=== PATIENT | male | born 1930 | race Caucasian/White ===

== ENCOUNTER 2019-07-11 22:34 | Inpatient (IN) ==
[2019-07-11 23:33] LABS: Basophils # (auto) 0.01 K/uL (0-0.2); Basophils % (auto) 0.1 %; Eosinophils # (auto) 0.12 K/uL (0-0.5); Hematocrit (blood only) 39.2 % (42-52); Hemoglobin 12.8 g/dL (14.0-18.0); Immature Granulocytes # (auto) 0.03 K/uL (0.00-0.02); Immature Granulocytes % (auto) 0.3 %; Lymphocytes # (auto) 1.83 K/uL (1.2-3.4); Lymphocytes % (auto) 15.9 %; Mean Corpuscular Hemoglobin 31.5 pg (25-34); Mean Corpuscular Hgb Conc 32.7 g/dL (32-36); Mean Corpuscular Volume 96.6 fL (80-100); Mean Platelet Volume 10.4 fL (7.4-10.4); Monocytes # (auto) 1.34 K/uL (0.11-0.59); Monocytes % (auto) 11.6 %; Neutrophils # (auto) 8.18 K/uL (1.4-6.5); Neutrophils % (auto) 71.1 %; Platelet Count 234 K/uL (130-400); RDW Coefficient of Variation 14.2 % (11.5-14.5); RDW Standard Deviation 50.5 fL (36.4-46.3); Red Blood Count 4.06 M/uL (4.7-6.1); White Blood Count 11.51 K/uL (4.8-10.8)
[2019-07-11 23:43] LABS: Albumin Level 3.4 gm/dl (3.4-5.0); BUN Creatinine Ratio 26.3 (10-20); Calcium 9.3 mg/dl (8.5-10.1); Creatinine Clr Calc Pharmacy 42.8 ml/min; Est GFR (African American) 60.4; Est GFR (Non-African American) 52.1; Potassium 4.9 mmol/L (3.5-5.1)
[2019-07-11 23:55] LABS: Albumin Globulin Ratio 0.9 (0.9-2); Bilirubin,Total 0.5 mg/dl (0.2-1); Globulin 3.6 gm/dl (2.5-4.0); Thyroid Stimulating Hormone 1.61 uIu/ml (0.300-4.500); Troponin I 0.059 ng/ml (0-0.045)
[2019-07-12] LABS: Appearance Urine Cloudy (Clear); Bacteria Urine Automated Negative (Negative); Bilirubin Urine Negative (Negative); Blood Urine 2+ (Negative); Color Urine Yellow; Glucose Urine UA Negative (Negative); Ketones Urine Negative (Negative); Leukocyte Esterase Urine Negative (Negative); Nitrite Urine Negative (Negative); Protein Urine 2+ (Negative); Specific Gravity Urine 1.021 (1.000-1.030); Urobilinogen Urine Negative (Negative)
[2019-07-12] MEDS: dilTIAZem HCl 125 MG in DEXTROSE 5% 100 ML IV SCH ×4 (00:07→22:32)
[2019-07-12] MEDS ORDERED: FUROSEMIDE 40 MG/4 ML VIAL IV STA ×2 (01:38→19:24)
[2019-07-12] MEDS ORDERED: IOVERSOL 100ml IV PRN (02:25)
[2019-07-12] MEDS ORDERED: ALBUT/IPRATROP 3MG/0.5MG NEB 3 ML VIAL NEB STA (02:36)
[2019-07-12] MEDS ORDERED: Heparin IV Low Dose *NO* Bolus ONE (03:49)
--- NOTE | 2019-07-12 03:58 | Emergency Department Note ---
Entered by Orlando Olivas acting as a scribe for History of Present Illness General Chief complaint: Abdominal Pain Stated complaint: abd pain Time Seen by Provider: 07/11/19 22:57 Source: patient History of Present Illness Onset (ago): day(s) (1200 today) Location: abdomen Pain Consistency: + constant Quality: + other (abdominal pain) Associated symptoms: + other (Positive for abdominal bloating and not passing gas. Negative for fever.) The patient is an 89 year old male who presents to the emergency department with complaints of constant abdominal pain beginning at 1200 today. The patient states that he was at physical therapy today and felt fine. He notes that he then went to lunch but was unable to eat because it felt like his stomach was expanding. He reports that it feels as though there is a soccer ball in his stomach, and he states that he is having abdominal pain. He notes that he had a medium sized bowel movement at 1600 today, but he reports that he has not been passing much gas today. He denies any fever. The patient states that he has had a quadruple bypass. He notes that he has also had hernia surgery. He reports that he takes a baby aspirin. Home Medications Home Medications Medication Instructions Recorded Confirmed Type acetaminophen [Tylenol] 650 mg PO BID 07/12/19 07/12/19 History acetaminophen [Tylenol] 650 mg PO Q6H PRN 07/12/19 07/12/19 History aluminum-magnesium hydroxide 20 ml PO Q6H PRN 07/12/19 07/12/19 History ascorbic acid (vitamin C) [Vitamin 500 mg PO Q2D 07/12/19 07/12/19 History C] aspirin 81 mg PO DAILY 07/12/19 07/12/19 History cyanocobalamin (vitamin B-12) 1,000 mcg PO 3XWK 07/12/19 07/12/19 History [Vitamin B-12] docusate sodium 100 mg PO DAILY PRN 07/12/19 07/12/19 History ferrous sulfate 325 mg PO Q2D 07/12/19 07/12/19 History finasteride 5 mg PO DAILY 07/12/19 07/12/19 History fluvastatin 80 mg PO HS 07/12/19 07/12/19 History furosemide [Lasix] 80 mg PO DAILY 07/12/19 07/12/19 History ipratropium-albuterol 3 ml INHALATION Q4H 07/12/19 07/12/19 History magnesium oxide 400 mg PO BID 07/12/19 07/12/19 History metformin 500 mg PO BID 07/12/19 07/12/19 History metoprolol succinate 50 mg PO BID 07/12/19 07/12/19 History multivitamin 1 tab PO 4XWK 07/12/19 07/12/19 History omega 5-mhg-izo-fish oil [Fish Oil] 1 cap PO BID 07/12/19 07/12/19 History potassium chloride 20 meq PO TID 07/12/19 07/12/19 History saw palmetto 160 mg PO DAILY 07/12/19 07/12/19 History Allergies Allergy/AdvReac Type Severity Reaction Status Date / Time simvastatin Allergy Unknown Unknown Verified 07/12/19 00:57 Past Med/Surg History Medical History Type II diabetes mellitus (Chronic) Hyperlipidemia (Chronic) BPH (benign prostatic hyperplasia) (Chronic) CAD (coronary artery disease) (Chronic) CHF (congestive heart failure) Urinary retention Surgical History History of hernia surgery History of quadruple bypass Family History Other No significant family history Social History Preferred Language: Nepali Communication Ability: Effective Beliefs That Will Affect Care: None Current Living Situation: Spouse Feels Safe at Home: Yes Smoking Status: Unknown if ever smoked Hx Alcohol Use: No Hx Substance Use: No Review of Systems See HPI for pertinent positives & negatives. and A total of 10 systems reviewed and were otherwise negative Physical Exam Vital Signs Vital Signs - 24 hr 07/11/19 22:46 07/12/19 00:17 07/12/19 00:33 Temperature 98.4 F Temperature Source Oral Sepsis Recent Fever Within 48 Hours No Sepsis Action Taken by Nursing No Action Required Pulse Rate 123 H 123 H Pulse Rate [Right] 140 H Pulse Rate from SpO2 Sensor 115 H Pulse Rhythm Irregular Pulse Rhythm [Right] Irregular Pulse Strength Normal Pulse Strength [Right] Normal Respiratory Rate 20 20 30 H Respiratory Effort / Characteristics Non-Labored Spontaneous Non-Labored Spontaneous Respiratory Depth Normal Normal Respiratory Pattern Blood Pressure 127/94 147/111 H Blood Pressure [Right Arm] 161/113 H Blood Pressure Mean 105 123 Blood Pressure Mean [Right Arm] 129 Blood Pressure Position Lying Pulse Oximetry 92 95 94 Oxygen Delivery Method Nasal Cannula Nasal Cannula Oxygen Flow Rate 2 Fraction of Inspired Oxygen SaO2/FiO2 Ratio 07/12/19 00:40 07/12/19 00:48 07/12/19 00:50 Temperature Temperature Source Sepsis Recent Fever Within 48 Hours Sepsis Action Taken by Nursing Pulse Rate 120 H 120 H Pulse Rate [Right] 118 H Pulse Rate from SpO2 Sensor 122 H 116 H Pulse Rhythm Pulse Rhythm [Right] Irregular Pulse Strength Pulse Strength [Right] Normal Respiratory Rate 27 H 20 35 H Respiratory Effort / Characteristics Non-Labored Spontaneous Respiratory Depth Normal Respiratory Pattern Blood Pressure Blood Pressure [Right Arm] 147/111 H Blood Pressure Mean Blood Pressure Mean [Right Arm] 123 Blood Pressure Position Pulse Oximetry 94 92 91 Oxygen Delivery Method Nasal Cannula Oxygen Flow Rate 4 Fraction of Inspired Oxygen SaO2/FiO2 Ratio 07/12/19 01:00 07/12/19 01:08 07/12/19 01:20 Temperature Temperature Source Sepsis Recent Fever Within 48 Hours Sepsis Action Taken by Nursing Pulse Rate 125 H 118 H 107 H Pulse Rate [Right] Pulse Rate from SpO2 Sensor 100 H 124 H 119 H Pulse Rhythm Pulse Rhythm [Right] Pulse Strength Pulse Strength [Right] Respiratory Rate 26 H 27 H 19 Respiratory Effort / Characteristics Respiratory Depth Respiratory Pattern Blood Pressure 160/81 H Blood Pressure [Right Arm] Blood Pressure Mean 107 Blood Pressure Mean [Right Arm] Blood Pressure Position Pulse Oximetry 91 86 L 91 Oxygen Delivery Method Oxygen Flow Rate 6 Fraction of Inspired Oxygen SaO2/FiO2 Ratio 07/12/19 01:22 07/12/19 01:48 07/12/19 01:49 Temperature Temperature Source Sepsis Recent Fever Within 48 Hours Sepsis Action Taken by Nursing Pulse Rate 108 H Pulse Rate [Right] 110 H Pulse Rate from SpO2 Sensor 113 H Pulse Rhythm Pulse Rhythm [Right] Pulse Strength Pulse Strength [Right] Normal Respiratory Rate 20 40 H Respiratory Effort / Characteristics Non-Labored Spontaneous Respiratory Depth Normal Respiratory Pattern Blood Pressure 143/99 H 166/112 H Blood Pressure [Right Arm] 166/112 H Blood Pressure Mean 113 130 Blood Pressure Mean [Right Arm] 130 Blood Pressure Position Pulse Oximetry 92 90 Oxygen Delivery Method Nasal Cannula Oxygen Flow Rate 6 6 Fraction of Inspired Oxygen SaO2/FiO2 Ratio 07/12/19 02:34 07/12/19 02:41 07/12/19 02:49 Temperature Temperature Source Sepsis Recent Fever Within 48 Hours Sepsis Action Taken by Nursing Pulse Rate 118 H 110 H Pulse Rate [Right] Pulse Rate from SpO2 Sensor 115 H 132 H Pulse Rhythm Pulse Rhythm [Right] Pulse Strength Pulse Strength [Right] Respiratory Rate 27 H 36 H Respiratory Effort / Characteristics Spontaneous Respiratory Depth Normal Respiratory Pattern Regular Blood Pressure 157/104 H 152/109 H Blood Pressure [Right Arm] Blood Pressure Mean 121 123 Blood Pressure Mean [Right Arm] Blood Pressure Position Pulse Oximetry 85 L 91 94 Oxygen Delivery Method Nasal Cannula Non-rebreather Oxygen Flow Rate 7 15 Fraction of Inspired Oxygen 60 SaO2/FiO2 Ratio 07/12/19 02:50 07/12/19 03:02 07/12/19 04:12 Temperature Temperature Source Sepsis Recent Fever Within 48 Hours Sepsis Action Taken by Nursing Pulse Rate Pulse Rate [Right] 113 H 114 H 108 H Pulse Rate from SpO2 Sensor Pulse Rhythm Pulse Rhythm [Right] Pulse Strength Pulse Strength [Right] Respiratory Rate 36 H 24 16 Respiratory Effort / Characteristics Spontaneous Labored Short of Breath Non-Labored Spontaneous Non-Labored Spontaneous Respiratory Depth Normal Normal Respiratory Pattern Blood Pressure Blood Pressure [Right Arm] 151/99 H 115/78 Blood Pressure Mean Blood Pressure Mean [Right Arm] 116 90 Blood Pressure Position Pulse Oximetry 94 93 92 Oxygen Delivery Method BiPAP BiPAP BiPAP Oxygen Flow Rate Fraction of Inspired Oxygen 60 40 SaO2/FiO2 Ratio 230 GENERAL: alert, well appearing, well nourished, no distress, non-toxic EYE EXAM: normal conjunctiva, PERRL and EOM's grossly intact OROPHARYNX: no exudate, no erythema, lips, buccal mucosa, and tongue normal and mucous membranes are moist NECK: supple, no nuchal rigidity, no adenopathy, non-tender LUNGS: Clear to auscultation. Normal chest wall mechanics. Decreased breath sounds, no wheezes, rhonchi, and rales. HEART: no murmurs, S1 normal and S2 normal ABDOMEN: abdomen soft, no masses, no rebound or guarding. Abdominal distention noted, generalized abdominal discomfort with palpation, tympanic to percussion, decreased bowel sounds. BACK: Back is symmetrical on inspection and there is no deformity, no midline tenderness, no CVA tenderness. SKIN: no rashes and no bruising UPPER EXTREMITIES: upper extremities are grossly normal. FROM, nml pulses b/l. LOWER EXTREMITIES: 2+ lower extremity edema, normal distal pulses bilaterally. FROM, nml pulses b/l. NEURO EXAM: Normal sensorium, cranial nerves II-XII grossly intact, normal speech, no gross weakness of arms, no gross weakness of legs. Course 2303: The patient was evaluated in room C5. A complete history and physical exam was performed. 0056: Additional records were obtained from [facility] at this time. 0242: I rechecked the patient. He was diaphoretic and cyanotic. His oxygen saturation was in the low 80s and he was in respiratory distress. He had an increased work of breathing. A call was placed for BiPAP. The patient was moved from nasal cannula at 5L/min to a face mask at 15L/min until BiPAP can be applied. 0255: I reevaluated the patient. He is slightly more comfortable with BiPAP in place. His oxygen saturation was 94%. 0312: I rechecked the patient. He looks and feels better. His heart rate is 99. 0333: The investment accounting clerk is trying to contact [employer] due to the delay in results of CT. 0400: Pt updated on results. States he feels much improved. VS stable on bipap. 0414: Upon reevaluation, the patient is stable. I discussed the findings and the treatment plan with the patient. He expresses agreement and understanding. I spoke with Dr. Juarez of the [facility] Hospitalist Service. The patient will be evaluated for further management. Consultations Consultation #1: I reviewed the patient's case with Dr. Juarez - Hospitalist, [facility]. He will evaluate the patient for further management. Time: 04:14 Administered Medications Acetaminophen (Tylenol) 650 mg PO Q4H PRN PRN Reason: mild pain or fever Stop: 08/11/19 05:45 Last Admin: 07/12/19 08:58 Dose: 650 mg Documented by: [id number] Albuterol (Duoneb) 3 ml NEB Q6R JOVANNY Stop: 08/11/19 06:59 Last Admin: 07/13/19 01:05 Dose: 3 ml Documented by: [id number] Admin: 07/12/19 18:58 Dose: 3 ml Documented by: [id number] Admin: 07/12/19 13:13 Dose: 3 ml Documented by: [id number] Admin: 07/12/19 07:46 Dose: 3 ml Documented by: [id number] Aspirin (Ecotrin Ectab) 81 mg PO DAILY [facility] Stop: 08/11/19 08:59 Last Admin: 07/12/19 08:52 Dose: 81 mg Documented by: [id number] Finasteride (Proscar) 5 mg PO DAILY [facility] Stop: 08/11/19 08:59 Last Admin: 07/12/19 08:52 Dose: 5 mg Documented by: [id number] Fluvastatin Sodium (Lescol) 80 mg PO HS [facility] Stop: 08/11/19 20:59 Last Admin: 07/12/19 21:06 Dose: Not Given Documented by: [id number] Diltiazem HCl 125 mg/ Dextrose 125 mls @ 15 mls/hr IV .Q8H20M [facility]; Protocol Stop: 08/10/19 23:44 Last Admin: 07/12/19 22:32 Dose: 15 mg/hr, 15 mls/hr Documented by: [id number] Cosigned by: [id number] Titration: 07/12/19 22:32 Dose: 0 mg/hr, 0 mls/hr Documented by: [id number] Cosigned by: [id number] Titration: 07/12/19 19:26 Dose: 15 mg/hr, 15 mls/hr Documented by: [id number] Cosigned by: [id number] Admin: 07/12/19 16:31 Dose: 15 mg/hr, 15 mls/hr Documented by: [id number] Cosigned by: [id number] Titration: 07/12/19 16:31 Dose: 15 mg/hr, 15 mls/hr Documented by: [id number] Cosigned by: [id number] Admin: 07/12/19 08:58 Dose: 15 mg/hr, 15 mls/hr Documented by: [id number] Cosigned by: [id number] Titration: 07/12/19 08:58 Dose: 15 mg/hr, 15 mls/hr Documented by: [id number] Cosigned by: [id number] Titration: 07/12/19 01:10 Dose: 15 mg/hr, 15 mls/hr Documented by: [id number] Titration: 07/12/19 00:42 Dose: 10 mg/hr, 10 mls/hr Documented by: [id number] Admin: 07/12/19 00:07 Dose: 5 mg/hr, 5 mls/hr Documented by: [id number] Cosigned by: [id number] Heparin Sodium/Dextrose (Heparin Sodium/Dextrose) 25,000 units in 500 mls @ 18 mls/hr IV .Q24H JOVANNY; Protocol Stop: 08/11/19 03:59 Last Titration: 07/12/19 19:26 Dose: 900 units/hr, 18 mls/hr Documented by: [id number] Cosigned by: [id number] Titration: 07/12/19 11:43 Dose: 900 units/hr, 18 mls/hr Documented by: [id number] Cosigned by: [id number] Titration: 07/12/19 07:36 Dose: 850 units/hr, 17 mls/hr Documented by: [id number] Cosigned by: [id number] Admin: 07/12/19 04:09 Dose: 850 units/hr, 17 mls/hr Documented by: [id number] Cosigned by: [id number] Ceftriaxone Sodium 2,000 mg/ (Dextrose) 70 mls @ 100 mls/hr IV Q24H JOVANNY; Protocol Stop: 07/22/19 14:59 Last Infusion: 07/12/19 16:51 Dose: 0 mls/hr Documented by: [id number] Admin: 07/12/19 16:09 Dose: 100 mls/hr Documented by: [id number] Furosemide 80 mg/ Syringe 8 mls @ 4 mls/min IV BID JOVANNY Stop: 08/11/19 14:29 Last Admin: 07/12/19 19:50 Dose: Not Given Documented by: [id number] Admin: 07/12/19 16:09 Dose: 4 mls/min Documented by: [id number] Insulin Aspart (Novolog Flexpen) 0 units SC ACHS JOVANNY; Protocol Stop: 08/11/19 07:29 Last Admin: 07/12/19 21:07 Dose: Not Given Documented by: [id number] Cosigned by: [id number] Admin: 07/12/19 19:00 Dose: Not Given Documented by: [id number] Cosigned by: [id number] Admin: 07/12/19 13:19 Dose: Not Given Documented by: [id number] Cosigned by: [id number] Admin: 07/12/19 09:07 Dose: 1 units Documented by: [id number] Cosigned by: [id number] Ioversol (Optiray 320 100ml) 100 ml IV ONCE PRN PRN Reason: Interaction Checking Stop: 07/16/19 02:24 Last Admin: 07/12/19 02:25 Dose: 93 ml Documented by: [id number] Magnesium Oxide (Mag-Ox) 400 mg PO BID JOVANNY Stop: 08/11/19 08:59 Last Admin: 07/12/19 21:07 Dose: Not Given Documented by: [id number] Admin: 07/12/19 08:52 Dose: 400 mg Documented by: [id number] Metoprolol Tartrate (Lopressor) 50 mg PO Q6 JOVANNY Stop: 08/11/19 14:29 Last Admin: 07/13/19 00:15 Dose: Not Given Documented by: [id number] Admin: 07/12/19 19:51 Dose: Not Given Documented by: [id number] Admin: 07/12/19 16:31 Dose: 50 mg Documented by: [id number] Morphine Sulfate (Morphine Sulfate) 2 mg IV Q4H PRN PRN Reason: Pain Stop: 07/26/19 15:45 Last Admin: 07/13/19 00:10 Dose: 2 mg Documented by: [id number] Admin: 07/12/19 16:09 Dose: 2 mg Documented by: [id number] Potassium Chloride (Klor-Con M20) 20 meq PO TID JOVANNY Stop: 08/11/19 08:59 Last Admin: 07/12/19 21:06 Dose: Not Given Documented by: [id number] Admin: 07/12/19 16:10 Dose: 20 meq Documented by: [id number] Admin: 07/12/19 08:51 Dose: 20 meq Documented by: [id number] Tamsulosin HCl (Flomax) 0.4 mg PO HS JOVANNY Stop: 08/11/19 20:59 Last Admin: 07/12/19 21:06 Dose: Not Given Documented by: [id number] Discontinued Medications Albuterol (Duoneb) 3 ml NEB NOW STA Stop: 07/12/19 02:37 Last Admin: 07/12/19 02:47 Dose: 3 ml Documented by: [id number] Albuterol (Duoneb) 3 ml NEB Q6H JOVANNY Stop: 08/11/19 04:44 Last Admin: 07/12/19 06:04 Dose: Not Given Documented by: [id number] Furosemide (Lasix) 40 mg IV NOW STA Stop: 07/12/19 01:39 Last Admin: 07/12/19 02:41 Dose: 40 mg Documented by: [id number] Furosemide (Lasix) 80 mg PO DAILY JOVANNY Stop: 08/11/19 08:59 Last Admin: 07/12/19 08:51 Dose: 80 mg Documented by: [id number] Furosemide (Lasix) 40 mg IV NOW STA Stop: 07/12/19 19:25 Last Admin: 07/12/19 19:32 Dose: 40 mg Documented by: [id number] Furosemide (Lasix) Confirm Administered Dose 40 mg IV .STK-MED ONE Stop: 07/12/19 19:29 Last Admin: 07/12/19 19:51 Dose: 40 mg Documented by: [id number] Heparin Sodium/Dextrose () 1 ea N/A ONE ONE; Protocol Stop: 07/12/19 03:50 Last Admin: 07/12/19 04:10 Dose: 1 ea Documented by: [id number] Heparin Sodium (Porcine) 3,000 (units/ Syringe) 3 mls @ 10 mls/min IV ONE ONE Stop: 07/12/19 12:01 Last Admin: 07/12/19 13:18 Dose: 10 mls/min Documented by: [id number] Cosigned by: [id number] Metoprolol Succinate (Toprol Xl) 50 mg PO BID JOVANNY Stop: 08/11/19 08:59 Last Admin: 07/12/19 08:52 Dose: 50 mg Documented by: [id number] Medical Decision Making Differential Diagnosis Differential diagnosis: Etiologies such as biliary colic, cholecystitis, hepatitis, pancreatitis, cardiac disease, pancreatitis, gastritis, peptic ulcer disease, appendicitis, cystitis, diverticulitis, mesenteric ischemia, inflammatory bowel disease, ileus, bowel obstruction, testicular torsion, aortic pathology, shingles, as well as others were considered. Medical Records Attestation: I reviewed the patient's medical records. Home Medications Current Medication List: was personally reviewed by me Laboratory Data Attestation: I reviewed the patient's lab results. Result diagrams: 07/11/19 22:25 07/12/19 09:59 Lab Results 07/11/19 07/11/19 07/11/19 Range/Units 22:25 22:25 23:41 WBC 11.51 H (4.8-10.8) K/uL RBC 4.06 L (4.7-6.1) M/uL Hgb 12.8 L (14.0-18.0) g/dL Hct 39.2 L (42-52) % MCV 96.6 (80-100) fL MCH 31.5 (25-34) pg MCHC 32.7 (32-36) g/dL RDW Std Deviation 50.5 H (36.4-46.3) fL RDW Coeff of Ashley 14.2 (11.5-14.5) % Plt Count 234 (130-400) K/uL MPV 10.4 (7.4-10.4) fL Immature Gran % (Auto) 0.3 % Neut % (Auto) 71.1 % Lymph % (Auto) 15.9 % Meagher % (Auto) 11.6 % Eos % (Auto) 1.0 % Baso % (Auto) 0.1 % Immature Gran # (Auto) 0.03 H (0.00-0.02) K/uL Neut # (Auto) 8.18 H (1.4-6.5) K/uL Lymph # (Auto) 1.83 (1.2-3.4) K/uL Meagher # (Auto) 1.34 H (0.11-0.59) K/uL Eos # (Auto) 0.12 (0-0.5) K/uL Baso # (Auto) 0.01 (0-0.2) K/uL Sodium 138 (136-145) mmol/L Potassium 4.9 D (3.5-5.1) mmol/L Chloride 98 (98-107) mmol/L Carbon Dioxide 32 (21-32) mmol/L Anion Gap 8.0 (3-11) BUN 32 H (7-18) mg/dl Creatinine 1.23 (0.6-1.4) mg/dl Est Cr Clr Drug Dosing 42.8 ml/min Est GFR ( Amer) 60.4 Est GFR (Non-Af Amer) 52.1 BUN/Creatinine Ratio 26.3 H (10-20) Glucose 144 H (70-99) mg/dl POC Lactic Acid Fazal (0.90-1.70) mmol/L Calcium 9.3 (8.5-10.1) mg/dl Magnesium 2.0 (1.8-2.4) mg/dl Total Bilirubin 0.5 (0.2-1) mg/dl AST 30 (15-37) U/L ALT 43 (12-78) U/L Alkaline Phosphatase 62 (45-117) U/L Troponin I 0.059 H* (0-0.045) ng/ml NT-Pro-B Natriuret Pep 8566 H (0-1800) pg/ml Total Protein 7.0 (6.4-8.2) gm/dl Albumin 3.4 (3.4-5.0) gm/dl Globulin 3.6 (2.5-4.0) gm/dl Albumin/Globulin Ratio 0.9 (0.9-2) Lipase 91 (73-393) U/L TSH 1.610 (0.300-4.500) uIu/ml Urine Color Yellow Urine Appearance Cloudy A (Clear) Urine pH 5.0 (4.5-7.5) Ur Specific Mineral 1.021 (1.000-1.030) Urine Protein 2+ H (Negative) Urine Glucose (UA) Negative (Negative) Urine Ketones Negative (Negative) Urine Blood 2+ H (Negative) Urine Nitrite Negative (Negative) Urine Bilirubin Negative (Negative) Urine Urobilinogen Negative (Negative) Ur Leukocyte Esterase Negative (Negative) Urine WBC (Auto) 1-5 (0-5) /hpf Urine RBC (Auto) 10-30 H (0-4) /hpf U Hyaline Cast (Auto) 5-10 H (0-5) /lpf U Epithel Cells (Auto) 5-10 H (0-5) /lpf Urine Bacteria (Auto) Negative (Negative) 07/11/19 Range/Units 23:55 WBC (4.8-10.8) K/uL RBC (4.7-6.1) M/uL Hgb (14.0-18.0) g/dL Hct (42-52) % MCV (80-100) fL MCH (25-34) pg MCHC (32-36) g/dL RDW Std Deviation (36.4-46.3) fL RDW Coeff of Ashley (11.5-14.5) % Plt Count (130-400) K/uL MPV (7.4-10.4) fL Immature Gran % (Auto) % Neut % (Auto) % Lymph % (Auto) % Meagher % (Auto) % Eos % (Auto) % Baso % (Auto) % Immature Gran # (Auto) (0.00-0.02) K/uL Neut # (Auto) (1.4-6.5) K/uL Lymph # (Auto) (1.2-3.4) K/uL Meagher # (Auto) (0.11-0.59) K/uL Eos # (Auto) (0-0.5) K/uL Baso # (Auto) (0-0.2) K/uL Sodium (136-145) mmol/L Potassium (3.5-5.1) mmol/L Chloride (98-107) mmol/L Carbon Dioxide (21-32) mmol/L Anion Gap (3-11) BUN (7-18) mg/dl Creatinine (0.6-1.4) mg/dl Est Cr Clr Drug Dosing ml/min Est GFR ( Amer) Est GFR (Non-Af Amer) BUN/Creatinine Ratio (10-20) Glucose (70-99) mg/dl POC Lactic Acid Fazal 1.12 (0.90-1.70) mmol/L Calcium (8.5-10.1) mg/dl Magnesium (1.8-2.4) mg/dl Total Bilirubin (0.2-1) mg/dl AST (15-37) U/L ALT (12-78) U/L Alkaline Phosphatase (45-117) U/L Troponin I (0-0.045) ng/ml NT-Pro-B Natriuret Pep (0-1800) pg/ml Total Protein (6.4-8.2) gm/dl Albumin (3.4-5.0) gm/dl Globulin (2.5-4.0) gm/dl Albumin/Globulin Ratio (0.9-2) Lipase (73-393) U/L TSH (0.300-4.500) uIu/ml Urine Color Urine Appearance (Clear) Urine pH (4.5-7.5) Ur Specific Mineral (1.000-1.030) Urine Protein (Negative) Urine Glucose (UA) (Negative) Urine Ketones (Negative) Urine Blood (Negative) Urine Nitrite (Negative) Urine Bilirubin (Negative) Urine Urobilinogen (Negative) Ur Leukocyte Esterase (Negative) Urine WBC (Auto) (0-5) /hpf Urine RBC (Auto) (0-4) /hpf U Hyaline Cast (Auto) (0-5) /lpf U Epithel Cells (Auto) (0-5) /lpf Urine Bacteria (Auto) (Negative) Imaging Data Attestation: I personally reviewed and interpreted this imaging study as follows: My Impression: SINGLE VIEW CHEST X-RAY: Cardiomegaly. Sternotomy wires noted. Elevated left hemidiaphragm. No large pleural effusion. Increased interstitial markings bilaterally. No focal consolidation. Radiologist's Impression: Radiology results as stated below per my review and the radiologist's interpretation: CT ABDOMEN & PELVIS With Contrast: Evaluation of urinary bladder limited by underdistention, but there is bladder wall thickening and adjacent fat stranding, suggesting possible cystitis. Recommend correlation with urinalysis. Prostate is minimally enlarged. Bladder wall thickening is somewhat eccentric and greater at towards right. Correlation with urine cytology/cystoscopy should be considered to exclude underlying neoplasm. Cardiomegaly. Coronary artery calcifications. Pelvis CABG. Interlobular septal thickening and mild patchy groundglass densities in right lung, suggesting CHF/fluid overload. Small left pleural effusion. Elevation of left hemidiaphragm and there is atelectasis at left lung base and lingual. Mild atelectasis at right lung base. Mild airspace disease not excluded. 3mm enhancing lesion at liver edge (image 45, series 2), incompletely characterized. Large parapelvic cyst in left kidney. No hydronephrosis. Nonspecific perinephric stranding bilaterally. Normal appendix. No free air or free fluid. No bowel obstruction. 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 Multilevel degenerative changes. Atherosclerotic calcifications. Radiologist: Surendra Kimble MD. ECG Data Attestation: I personally reviewed and interpreted this ECG as follows: Indication: abdominal pain Rate (beats per minute): 146 Rhythm: atrial fibrillation Findings: + PVC and + Q waves (in 2, 3, and AVF) Additional Comments: Left axis, normal QRS and QTC, no new ST elevation. Blood Pressure Blood Pressure Findings: Elevated blood pressure Blood Pressure Disposition: further management by hospitalist [facility] Narrative This is a comp gated medical patient with initially no additional outside records or information regarding his past medical history or medications who presented with complaints of generalized abdominal discomfort that began earlier today. Eventually records were obtained that did reveal patient's prior history and current medications. Labs were drawn and sent, and eventually EKG revealed appearance of pulmonary edema. Patient appeared to be in atrial fibrillation on telemetry with a rapid response. While patient denied any shortness of breath on bedside questioning, he did appear slightly tachypneic, and was placed on oxygen by nursing staff as a precaution. Patient remained stable and had no changes in his condition while awaiting CT. After patient returned from CT patient was profoundly diaphoretic, cyanotic, struggling to breathe, hypoxic in the low 80s, and respiratory was called emergently to start the patient on BiPAP. Patient improved while on BiPAP and had decreased work of breathing and oxygen saturations return to the low to mid 90s. Patient CT is read by the stat overnight radiologist, did not reveal any other acute pathology. Patient was noted on labs to have an elevated BNP which was consistent with his chest x-ray, as well as an elevated troponin. Patient was also noted when he was first placed on telemetry to have atrial fibrillation. We could not find any prior record of this. Patient had been started on a diltiazem drip while awaiting other records which did provide additional control. Once CT results were known, a heparin drip was added as a precaution. All results were explained to the patient as well as his need for additional inpatient evaluation and monitoring. He verbalized understanding and was in agreement. Patient otherwise remained hemodynamically stable, well-appearing while on BiPAP in the emergency room until he was moved upstairs. Case was discussed with hospitalist for additional evaluation and management. Impression & Plan Abdominal pain, Acute respiratory distress, Hypoxia, Pulmonary edema, Elevated troponin, Atrial fibrillation Critical Care Time Critical Care Time: Yes Total Critical Care Time: 50 I have personally spent 50 minutes of critical care time in the direct management of this patient. This includes bedside care, interpretation of diagnostic studies, and testing, discussion with consultants, patient, and family members, and other required patient management activities. This 50 minutes is in excess of all separately billable procedures. Discharge Plan Visit Data *Final* Discharge Date/Time: 07/12/19 05:24 Chief Complaint: Abdominal Pain Stated Complaint: abd pain ED Provider: Kat Askew Discharge Problem: Abdominal pain, Acute respiratory distress, Hypoxia, Pulmonary edema, Elevated troponin, Atrial fibrillation Patient Disposition: Admitted As Inpatient Discharge Instructions Interventions: ED Discharge Assessment Last Done: 07/12/19 05:24 Discharge Problem: Abdominal pain Qualifiers: Abdominal location: generalized Qualified Code(s): R10.84 - Generalized abdominal pain Pulmonary edema Qualifiers: Chronicity: acute Qualified Code(s): J81.0 - Acute pulmonary edema Atrial fibrillation Qualifiers: Atrial fibrillation type: unspecified Qualified Code(s): I48.91 - Unspecified atrial fibrillation The scribe's documentation has been prepared under my direction and personally reviewed by me in its entirety. I confirm that the note above accurately reflects all work, treatment, procedures, and medical decision making performed by me.
[2019-07-12] MEDS: HEPARIN SODIUM/DEXTROSE 25,000 UNITS/500 ML BAG IV SCH (04:09)
[2019-07-12] MEDS ORDERED: ALBUT/IPRATROP 3MG/0.5MG NEB 3 ML VIAL NEB SCH (04:45)
--- NOTE | 2019-07-12 05:07 | History & Physical Report ---
Date of Service July 12, 2019 Assessment & Plan (1) Atrial fibrillation with RVR: Admit to PCU Presumed to be new A.fib Heparin gtt started in ED Cardizem gtt check echocardiogram (2) Pulmonary edema: [place] to be secondary to elevated HR IV Lasix given in ED. (3) Acute respiratory failure with hypoxia: Patient doing better on BiPAP IV Lasix given continue Lasix 80mg po daily in am Duonebs (4) Elevated troponin: Suspect due to demand ischemia will trend trops. (5) Type II diabetes mellitus: ADA diet Hold Metformin Sliding scale coverage for now. (6) Hyperlipidemia: Continue Fluvastatin (7) CAD (coronary artery disease): continue Metoprolol and aspirin History of Present Illness 89 y/o male presented to the ED from [facility] with a 12 hour history of constant diffuse abdominal pain. He described as having a "soccer ball in my stomach". He did have a normal BM last evening. No vomiting or diarrhea, No F/C, No cough, No chest pain. The patient is a poor historian in regards to past medical history. He is found to be in A.fib with RVR. Primary Care Provider: [facility] Allergies Allergy/AdvReac Type Severity Reaction Status Date / Time simvastatin Allergy Unknown Unknown Verified 07/12/19 00:57 Home Medications Home Medications Medication Instructions Recorded Confirmed Type acetaminophen [Tylenol] 650 mg PO BID 07/12/19 07/12/19 History acetaminophen [Tylenol] 650 mg PO Q6H PRN 07/12/19 07/12/19 History aluminum-magnesium hydroxide 20 ml PO Q6H PRN 07/12/19 07/12/19 History ascorbic acid (vitamin C) [Vitamin 500 mg PO Q2D 07/12/19 07/12/19 History C] aspirin 81 mg PO DAILY 07/12/19 07/12/19 History cyanocobalamin (vitamin B-12) 1,000 mcg PO 3XWK 07/12/19 07/12/19 History [Vitamin B-12] docusate sodium 100 mg PO DAILY PRN 07/12/19 07/12/19 History ferrous sulfate 325 mg PO Q2D 07/12/19 07/12/19 History finasteride 5 mg PO DAILY 07/12/19 07/12/19 History fluvastatin 80 mg PO HS 07/12/19 07/12/19 History furosemide [Lasix] 80 mg PO DAILY 07/12/19 07/12/19 History ipratropium-albuterol 3 ml INHALATION Q4H 07/12/19 07/12/19 History magnesium oxide 400 mg PO BID 07/12/19 07/12/19 History metformin 500 mg PO BID 07/12/19 07/12/19 History multivitamin 1 tab PO 4XWK 07/12/19 07/12/19 History omega 8-gut-dbx-fish oil [Fish Oil] 1 cap PO BID 07/12/19 07/12/19 History potassium chloride 20 meq PO TID 07/12/19 07/12/19 History saw palmetto 160 mg PO DAILY 07/12/19 07/12/19 History CPAP Machine #1 ea 07/18/19 Rx CPAP Supplies #1 ea 07/18/19 Rx digoxin 0.125 mg PO DAILY@1600 30 Days #30 07/18/19 Rx tab diltiazem HCl 120 mg PO DAILY 30 Days #30 cap 07/18/19 Rx metoprolol succinate 150 mg PO BID 30 Days #180 tab 07/18/19 Rx rivaroxaban [Xarelto] 20 mg PO DAILY@1700 30 Days #30 tab 07/18/19 Rx tamsulosin 0.4 mg PO HS 30 Days #30 cap 07/18/19 Rx bumetanide 2 mg PO DAILY #30 tab 07/24/19 Rx Past Med/Surg History Medical History Type II diabetes mellitus (Chronic) Hyperlipidemia (Chronic) BPH (benign prostatic hyperplasia) (Chronic) CAD (coronary artery disease) (Chronic) CHF (congestive heart failure) Urinary retention Surgical History History of hernia surgery History of quadruple bypass Family History Other No significant family history Social History Preferred Language: [place] Communication Ability: Effective Beliefs That Will Affect Care: None Current Living Situation: Spouse Feels Safe at Home: Yes Smoking Status: Unknown if ever smoked Hx Alcohol Use: No Hx Substance Use: No Review of Systems Review of Systems: Constitutional- no fever; no weight loss Eyes- no acute visual changes ENT- no sinus drainage; no pharyngitis Pulmonary- no cough, no wheezing, no shortness of breath Cardiac- no chest pain, no palpitations, no orthopnea. GI- As in HPI - no dysuria, no hematuria Musculoskeletal- no arthralgias, no myalgias Derm- no rashes, no new skin lesions, no changing skin lesions Hematologic- no unusual bruising, no unusual bleeding Lymphatics- no adenopathy Endocrine- no polyuria or polydipsia; no heat or cold intolerance Neuro- no headaches, no focal neurologic symptoms Psych- no anxiety, no depression Physical Exam Physical Exam: General- adult male wearing BIPAP, NAD Head- atraumatic Eyes- PERRL, EOMI, anicteric ENT- oropharynx clear Neck- supple, no JVD, no adenopathy, no thyromegaly. Lungs- Crackles at the bases b/. Heart- Irregular rhythm; no murmur, no gallop, no rub appreciated Abdomen- normal bowel sounds, soft, nontender. Extremities- no calf tenderness; peripheral pulses intact. + 2 pitting edema b/l ankles Neuro- alert, oriented x 3; PERRL, EOMI; economic analysis director II-XII grossly intact, non-focal. Skin- warm & dry Results & Data Vital Signs (Past 12 Hours) Vital Signs Temp Pulse Pulse Resp BP BP Pulse Ox 07/12/19 04:12 108 H 16 115/78 92 07/12/19 03:02 114 H 24 151/99 H 93 07/12/19 02:50 113 H 36 H 94 07/12/19 02:49 110 H 36 H 94 07/12/19 02:41 152/109 H 91 07/12/19 02:34 118 H 27 H 157/104 H 85 L 07/12/19 01:49 108 H 40 H 166/112 H 90 07/12/19 01:48 110 H 20 166/112 H 92 07/12/19 01:22 143/99 H 07/12/19 01:20 107 H 19 91 07/12/19 01:08 118 H 27 H 160/81 H 86 L 07/12/19 01:00 125 H 26 H 91 10/10/19 00:50 120 H 35 H 91 07/12/19 00:48 118 H 20 147/111 H 92 07/12/19 00:40 120 H 27 H 94 07/12/19 00:33 123 H 30 H 147/111 H 94 07/12/19 00:17 140 H 20 161/113 H 95 07/11/19 22:46 36.9 C 123 H 20 127/94 92 Laboratory Results Laboratory Results WBC 11.51 K/uL (4.8-10.8) H 07/11/19 22:25 RBC 4.06 M/uL (4.7-6.1) L 07/11/19 22:25 Hgb 12.8 g/dL (14.0-18.0) L 07/11/19 22:25 Hct 39.2 % (42-52) L 07/11/19 22:25 MCV 96.6 fL (80-100) 07/11/19 22:25 MCH 31.5 pg (25-34) 07/11/19 22:25 MCHC 32.7 g/dL (32-36) 07/11/19 22:25 RDW Std Deviation 50.5 fL (36.4-46.3) H 07/11/19 22:25 RDW Coeff of Ashley 14.2 % (11.5-14.5) 07/11/19 22:25 Plt Count 234 K/uL (130-400) 07/11/19 22:25 MPV 10.4 fL (7.4-10.4) 07/11/19 22:25 Immature Gran % (Auto) 0.3 % 07/11/19 22:25 Neut % (Auto) 71.1 % 07/11/19 22:25 Lymph % (Auto) 15.9 % 07/11/19 22:25 Carter % (Auto) 11.6 % 07/11/19 22:25 Eos % (Auto) 1.0 % 07/11/19 22:25 Baso % (Auto) 0.1 % 07/11/19 22:25 Immature Gran # (Auto) 0.03 K/uL (0.00-0.02) H 07/11/19 22:25 Neut # (Auto) 8.18 K/uL (1.4-6.5) H 07/11/19 22:25 Lymph # (Auto) 1.83 K/uL (1.2-3.4) 07/11/19 22:25 Carter # (Auto) 1.34 K/uL (0.11-0.59) H 07/11/19 22:25 Eos # (Auto) 0.12 K/uL (0-0.5) 07/11/19 22:25 Baso # (Auto) 0.01 K/uL (0-0.2) 07/11/19 22:25 Sodium 138 mmol/L (136-145) 07/11/19 22:25 Potassium 4.9 mmol/L (3.5-5.1) D 07/11/19 22:25 Chloride 98 mmol/L (98-107) 07/11/19 22:25 Carbon Dioxide 32 mmol/L (21-32) 07/11/19 22:25 Anion Gap 8.0 (3-11) 07/11/19 22:25 BUN 32 mg/dl (7-18) H 07/11/19 22:25 Creatinine 1.23 mg/dl (0.6-1.4) 07/11/19 22:25 Est Cr Clr Drug Dosing 42.8 ml/min 07/11/19 22:25 Est GFR ( Amer) 60.4 07/11/19 22:25 Est GFR (Non-Af Amer) 52.1 07/11/19 22:25 BUN/Creatinine Ratio 26.3 (10-20) H 07/11/19 22:25 Glucose 144 mg/dl (70-99) H 07/11/19 22:25 POC Lactic Acid Fazal 1.12 mmol/L (0.90-1.70) 07/11/19 23:55 Calcium 9.3 mg/dl (8.5-10.1) 07/11/19 22:25 Magnesium 2.0 mg/dl (1.8-2.4) 07/11/19 22:25 Total Bilirubin 0.5 mg/dl (0.2-1) 07/11/19 22:25 AST 30 U/L (15-37) 07/11/19 22:25 ALT 43 U/L (12-78) 07/11/19 22:25 Alkaline Phosphatase 62 U/L (45-117) 07/11/19 22:25 Troponin I 0.059 ng/ml (0-0.045) H* 07/11/19 22:25 NT-Pro-B Natriuret Pep 8566 pg/ml (0-1800) H 07/11/19 22:25 Total Protein 7.0 gm/dl (6.4-8.2) 07/11/19 22:25 Albumin 3.4 gm/dl (3.4-5.0) 07/11/19 22:25 Globulin 3.6 gm/dl (2.5-4.0) 07/11/19 22:25 Albumin/Globulin Ratio 0.9 (0.9-2) 07/11/19 22:25 Lipase 91 U/L (73-393) 07/11/19 22:25 TSH 1.610 uIu/ml (0.300-4.500) 07/11/19 22:25 Urine Color Yellow 07/11/19 23:41 Urine Appearance Cloudy (Clear) A 07/11/19 23:41 Urine pH 5.0 (4.5-7.5) 07/11/19 23:41 Ur Specific [place] 1.021 (1.000-1.030) 07/11/19 23:41 Urine Protein 2+ (Negative) H 07/11/19 23:41 Urine Glucose (UA) Negative (Negative) 07/11/19 23:41 Urine Ketones Negative (Negative) 07/11/19 23:41 Urine Blood 2+ (Negative) H 07/11/19 23:41 Urine Nitrite Negative (Negative) 07/11/19 23:41 Urine Bilirubin Negative (Negative) 07/11/19 23:41 Urine Urobilinogen Negative (Negative) 07/11/19 23:41 Ur Leukocyte Esterase Negative (Negative) 07/11/19 23:41 Urine WBC (Auto) 1-5 /hpf (0-5) 07/11/19 23:41 Urine RBC (Auto) 10-30 /hpf (0-4) H 07/11/19 23:41 U Hyaline Cast (Auto) 5-10 /lpf (0-5) H 07/11/19 23:41 U Epithel Cells (Auto) 5-10 /lpf (0-5) H 07/11/19 23:41 Urine Bacteria (Auto) Negative (Negative) 07/11/19 23:41 Code Status & VTE Plan VTE Prophylaxis Plan VTE Prophylaxis will be ordered: Yes PG Care Time/CCT Total # of Minutes Spent Total Time Spent: 70 Total Time Spent with Patient: Total time spent is greater than 50% in coordination of care (as documented) at patient's floor/unit and/or counseling patient: (1) Pulmonary edema Chronicity: acute Qualified Code(s): J81.0 - Acute pulmonary edema
[2019-07-12] MEDS ORDERED: ONDANSETRON INJ 2 MG/ML 2 ML VIAL IV PRN (05:46)
[2019-07-12] MEDS ORDERED: GLUCOSE 40% GEL 15 GM TUBE PO PRN (05:46)
[2019-07-12] MEDS ORDERED: GLUCOSE 10 TABS/TUBE PO PRN (05:46)
[2019-07-12] MEDS ORDERED: GLUCAGON FOR INJ 1 MG VIAL SQ PRN (05:46)
[2019-07-12] MEDS ORDERED: DEXTROSE 50% 50 ML SYRINGE IV PRN (05:46)
[2019-07-12] MEDS ORDERED: CARBOHYDRATES FOR HYPOGLYCEMIA PO PRN (05:46)
[2019-07-12] MEDS ORDERED: INFLUENZA ADMINISTRATION CHARGE ONE (06:30)
[2019-07-12] MEDS ORDERED: INFLUENZA VACCINE HIGH DOSE 65+ 0.5 ML SYR IM ONE (06:30)
--- NOTE | 2019-07-12 07:21 | XRay Report ---
SINGLE VIEW CHEST CLINICAL HISTORY: Dyspnea. FINDINGS: An AP, portable, upright chest radiograph is obtained. No prior studies are available for c omparison at the time of dictation. The examination is degraded by portable technique and apical lo rdotic positioning. The patient is status post midline sternotomy. The heart is enlarged noting ather osclerotic calcification of the thoracic aorta. There is pulmonary vascular congestion. Is elevation of the left hemidiaphragm with associated left basilar consolidation. No large pleural effusion is se en. No pneumothorax is seen. The skeletal structures are osteopenic. The bony thorax is grossly intac t. IMPRESSION: 1. Cardiomegaly with evidence of congestive failure. 2. No large pleural effusion is identified. 3. There is elevation of the left hemidiaphragm with left basilar consolidation. This likely represen ts atelectasis. Clinical correlation will be required. Electronically signed by: Gm Altamirano M.D. 07/12/2019 7:20 AM
[2019-07-12] MEDS: ALBUT/IPRATROP 3MG/0.5MG NEB 3 ML VIAL NEB SCH ×3 (07:46→18:58)
--- NOTE | 2019-07-12 08:03 | CT Scan Report ---
CT abd pelvis oral and IV con CLINICAL HISTORY: abd pain, distention COMPARISON STUDY: None. TECHNIQUE: The patient was scanned in a dynamic helical fashion during intravenous administration of 93 cc of Optiray 320. A dose lowering technique was utilized adhering to the principles of ALARA. CT DOSE: 968.58 mGy.cm FINDINGS: Lower chest: The heart is enlarged. There are coronary artery calcifications. There is basilar inters titial thickening. There are left lower lobe airspace opacities likely atelectatic. Interstitial pulm onary edema is suspected. There is minor right basilar atelectasis. There is a trace right pleural ef fusion. There is elevation left hemidiaphragm Liver: There is hepatic steatosis. There is a nonspecific 4 mm enhancing lesion within the right lobe of the liver inferiorly as visualized image #[id number] Gallbladder: No stones are visualized. There is mild gallbladder wall edema. There is minimal infiltr ation of the fat in the erik hepatis. Spleen: Normal in size and attenuation. Pancreas: Unremarkable. Adrenal glands: There is mild left adrenal gland thickening. Kidneys: There is a 6.6 cm left renal cyst. There is no hydronephrosis. Bowel: There are no transition zones indicate bowel obstruction. The appendix appears normal. There i s no acute diverticulitis. Peritoneum: There is no intraperitoneal free air or abdominal ascites. There is minimal generalized p eritoneal edema. Vasculature: The abdominal aorta is normal in course and caliber. Adenopathy: None. Pelvic viscera: There is bladder wall thickening, which is somewhat eccentric.. The prostate is enlar ged. Skeletal structures: No destructive osseous lesions are seen. 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 IMPRESSION: 1. No evidence of bowel obstruction. No evidence of free air. 2. No evidence of acute diverticulitis. Normal appendix. 3. Suspected congestive failure/fluid overload 4. Mild gallbladder wall edema. No calculi identified. No ductal dilatation. While this may simply be secondary to generalized volume overload/congestive failure, clinical correlation is recommended to exclude cholecystitis 5. Nonspecific 4 mm enhancing lesion within the right lobe of the liver 5. Large left renal parapelvic cyst 6. Prostatomegaly 7. Bladder wall thickening and infiltration of a adjacent fat. Correlate clinically for evidence of c ystitis. Given the eccentric bladder wall thickening, underlying malignancy cannot be excluded. Corre lation with urinary cytology/cystoscopy should be considered Electronically signed by: Winston Borden M.D. 07/12/2019 8:01 AM
--- NOTE | 2019-07-12 08:24 | Family Medicine Progress Note ---
Date of Service July 12, 2019 Assessment & Plan (1) Atrial fibrillation with RVR: #Atrial fibrillation with RVR: Patient presented from [facility] with complaints of abdominal fullness and distention, upon presentation to [facility] emergency department he was found to be in atrial fibrillation with rapid ventricular response. He was started on a heparin drip and a Cardizem drip. Currently rate controlled. Cardiology is consulted appreciate their recommendations with regard to transition to oral rate medication for rate control. -Presumed to be new A.fib -Heparin gtt started in ED -Cardizem gtt -Cardiology consulted appreciate recommendations -Transition from heparin to Xarelto 20 mg daily versus Eliquis 5 mg twice daily -Consider coronary angiography, likely can be deferred to outpatient -Attempt rate control and perform diuresis, add an MANUEL inhibitor as tolerated -Given his significant gut edema could consider Bumex p.o. as opposed to Lasix p.o. -Echo demonstrates -Moderate global hypokinesis LV, mild reduction of LV systolic function -RV systolic function reduced, RV mildly dilated, increased RV systolic pressure to 30 to 40 mmHg -Left and right atrium mildly dilated -Aortic sclerosis with aortic stenosis, moderate mitral regurg #Acute on chronic CHF exacerbation Per the family patient was recently diagnosed with CHF during his most recent admission at [facility] and subsequently discharged to [facility]. His current presentation likely represents a CHF exacerbation given, need for BiPAP, cardiac findings,elevated BNP to 8500 and physical exam findings along with recent weight gain. He will need to be worked up and further evaluated by cardiology for this. I contacted [facility] this morning and he reported the patient had a dry weight of 194.5 admission weight was 206 12 lb weight gain. Given Patient takes 80 mg of Lasix daily as an outpatient. -Respiratory exam limited by CPAP however did not appreciate significant rales, patient with 2+ pedal edema -Continue Lasix 80 mg daily, consider trial of Bumex secondary to gut wall edema secondary to being diffusely fluid overloaded. -F/u Cards cx -Strict I/O's #Acute respiratory failure with hypoxia: Patient comfortable and saturating well on BiPAP, appears comfortable on physical exam. Question whether this is secondary to congestive heart failure versus flash pulmonary edema secondary to new onset A. fib with RVR. -continue Lasix 80mg po daily in am this is his home dose -Duonebs prn #Pulmonary edema -Management as above #Abdominal distention Patient presenting with significant abdominal distention and fullness with tenderness to palpation. Abdominal CT was performed on admission. CT demonstrated congestive failure/fluid overload, gallbladder wall edema secondary to generalized volume overload, nonspecific 4 mm enhancing lesion within the right level liver, large left renal parapelvic cyst, prostamegaly, bladder wall thickening and infiltration of adjacent fat, cannot exclude cystitis cannot exclude malignancy. -Suspect abdominal discomfort and distention secondary to fluid overloaded status, hopefully will improve with diuresis. -Morphine 2 mg every 4 hours as needed provided for pain discomfort and air hunger, try to limit usage as it may decrease respiratory drive #Bladder wall thickening Suspicious for malignancy versus cystitis -Consulted uro following recs -Long-standing bladder outlet obstruction, maintain Lopez for 5 to 7 days -Proscar while inpatient, add tamsulosin -Preliminary urinary cultures are positive for gram-negative bacilli started on ceftriaxone -Urine cytology followed by outpatient cystoscopy #Elevated troponin: Likely secondary to demand ischemia trending troponins. -Trop 0.059-> #Type II diabetes mellitus: Heart healthy and diabetic diet. -Hold Metformin -glycemic consult placed #Hyperlipidemia: Continue Fluvastatin #CAD (coronary artery disease): continue Metoprolol and aspirin FENa:DMII Code Status:DNR/DNI DVT PPX: Heparin PT/OT: as pt improves Dispo:PCU Alcides Vickers MD PGY 2, [facility] This chart was completed utilizing [employer] voice recognition software. Grammatical errors, random word insertions, pronoun errors, and in complete sentences are an occasional consequence of the system. Any questions or concerns about the content, text, or information contained within the body of this dictation should be addressed directly to the physician for clarification. Supervising Physician Co-Signing Physician Notes Patient seen and examined independently of PGY-2 Dr. Vickers. Agree with history, exam findings, assessment and plan of care as outlined. In brief, Mr. Fofana is an 89 year old male with hx significant for DM, CAD, HLD admitted with afib with RVR. He is currently on CPAP. Reports that he is very uncomfortable and does not like the mask. Also noting abdominal pain and sensation that he needs to have a bowel movement but has not been able to do so on the bedpan. VS reviewed. Nursing notes reivewed. Coarse breath sounds throughout. +edema in the lower legs. 1. afib with RVR. Rate controlled with cardizem gtt. Can increase his metoprolol and wean off drip. AC with Xa inhibitor and stop heparin gtt. 2. pulmonary edema. Received IV lasix in the ED. Then restarted home lasix 80mg. Give addition 80mg IV lasix today. Monitor Cr. 3. cardiomyopathy, likely ischemic given his history. TTE here with EF of 35-40% and global hypokinesis. 4. Elevated toponin. Very mild elevation, likely secondary to afib with RVR. 5. Bacteruria. Growing gram neg rods. Start ceftriaxone. Await sensitivities. 6. Abnormal bladder imaging. Urology recs appreciated. urine cytology pending. can have cysto as an outpatient. Of note, other incidental findings on CT: nonspecific 4mm enhancing lesion in the right lobe of the liver and 6.6cm left parapelvic renal cyst. Dispo: pending clinical improvement. Subjective Patient laying on his side, endorsing abdominal fullness, and tenderness, and pain. Patient reports this history similar to that in the admission HPI with the following exceptions. Patient reports he was previously hospitalized at [facility] with similar symptoms. While at [facility] he was diagnosed with congestive heart failure, he was discharged from [facility] to [facility]. While at [facility] he has been having significant difficulties voiding and required straight caths for micturition. Here he has a Lopez in place, producing very dark concentrated appearing urine. Patient is significantly edematous, and has BiPAP in place. Family and friend at bedside, answered all questions, acute concerns related to his current condition and abdominal tenderness. Physical Exam Physical Exam: General: Elderly gentleman lying in bed with BiPAP mask in place, endorsing abdominal fullness HEENT: Normocephalic atraumatic Neck: Normal visual inspection Cardiac: Irregularly irregular rhythm, I did not appreciate significant murmurs, rubs, gallops, 2-3+ pedal edema, negative calf tenderness Respiratory: Difficult to appreciate secondary to BiPAP, borderline tachypnea, rales present in bilateral lower lung martinez, I did not appreciate significant wheezes or rhonchi GI: Protuberant abdomen with distention, and tenderness to palpation throughout all quadrants, bowel sounds present although hypoactive and distant sounding, was not able to appreciate a fluid wave. MSK: Moves all extremities Neuro: Alert and oriented x4, mentating well Psych: Calm, cooperative Results & Data Vital Signs (Past 12 Hours) Vital Signs Temp Pulse Pulse Resp BP BP Pulse Ox 07/12/19 08:12 36.4 C L 73 26 H 138/82 92 07/12/19 06:52 93 H 07/12/19 05:35 86 24 141/88 H 93 07/12/19 04:12 108 H 16 115/78 92 07/12/19 03:02 114 H 24 151/99 H 93 07/12/19 02:50 113 H 36 H 94 07/12/19 02:49 110 H 36 H 94 07/12/19 02:41 152/109 H 91 07/12/19 02:34 118 H 27 H 157/104 H 85 L 07/12/19 01:49 108 H 40 H 166/112 H 90 07/12/19 01:48 110 H 20 166/112 H 92 07/12/19 01:22 143/99 H 07/12/19 01:20 107 H 19 91 07/12/19 01:08 118 H 27 H 160/81 H 86 L 07/12/19 01:00 125 H 26 H 91 07/12/19 00:50 120 H 35 H 91 07/12/19 00:48 118 H 20 147/111 H 92 07/12/19 00:40 120 H 27 H 94 07/12/19 00:33 123 H 30 H 147/111 H 94 07/12/19 00:17 140 H 20 161/113 H 95 07/11/19 22:46 36.9 C 123 H 20 127/94 92 Laboratory Results 07/12/19 07/12/19 07/11/19 Range/Units 06:24 06:13 23:55 WBC (4.8-10.8) K/uL RBC (4.7-6.1) M/uL Hgb (14.0-18.0) g/dL Hct (42-52) % MCV (80-100) fL MCH (25-34) pg MCHC (32-36) g/dL RDW Std Deviation (36.4-46.3) fL RDW Coeff of Ashley (11.5-14.5) % Plt Count (130-400) K/uL MPV (7.4-10.4) fL Immature Gran % (Auto) % Neut % (Auto) % Lymph % (Auto) % [place] % (Auto) % Eos % (Auto) % Baso % (Auto) % Immature Gran # (Auto) (0.00-0.02) K/uL Neut # (Auto) (1.4-6.5) K/uL Lymph # (Auto) (1.2-3.4) K/uL [place] # (Auto) (0.11-0.59) K/uL Eos # (Auto) (0-0.5) K/uL Baso # (Auto) (0-0.2) K/uL Sodium (136-145) mmol/L Potassium (3.5-5.1) mmol/L Chloride (98-107) mmol/L Carbon Dioxide (21-32) mmol/L Anion Gap (3-11) BUN (7-18) mg/dl Creatinine (0.6-1.4) mg/dl Est Cr Clr Drug Dosing ml/min Est GFR ( Amer) Est GFR (Non-Af Amer) BUN/Creatinine Ratio (10-20) Glucose (70-99) mg/dl POC Glucose 208 H (70-99) POC Lactic Acid Fazal 1.12 (0.90-1.70) mmol/L Calcium (8.5-10.1) mg/dl Magnesium (1.8-2.4) mg/dl Total Bilirubin (0.2-1) mg/dl AST (15-37) U/L ALT (12-78) U/L Alkaline Phosphatase (45-117) U/L Troponin I (0-0.045) ng/ml NT-Pro-B Natriuret Pep (0-1800) pg/ml Total Protein (6.4-8.2) gm/dl Albumin (3.4-5.0) gm/dl Globulin (2.5-4.0) gm/dl Albumin/Globulin Ratio (0.9-2) Lipase (73-393) U/L TSH (0.300-4.500) uIu/ml Urine Color Urine Appearance (Clear) Urine pH (4.5-7.5) Ur Specific [place] (1.000-1.030) Urine Protein (Negative) Urine Glucose (UA) (Negative) Urine Ketones (Negative) Urine Blood (Negative) Urine Nitrite (Negative) Urine Bilirubin (Negative) Urine Urobilinogen (Negative) Ur Leukocyte Esterase (Negative) Urine WBC (Auto) (0-5) /hpf Urine RBC (Auto) (0-4) /hpf U Hyaline Cast (Auto) (0-5) /lpf U Epithel Cells (Auto) (0-5) /lpf Urine Bacteria (Auto) (Negative) Nasal Screen MRSA (PCR) Negative (Negative) 07/11/19 07/11/19 07/11/19 Range/Units 23:41 22:25 22:25 WBC 11.51 H (4.8-10.8) K/uL RBC 4.06 L (4.7-6.1) M/uL Hgb 12.8 L (14.0-18.0) g/dL Hct 39.2 L (42-52) % MCV 96.6 (80-100) fL MCH 31.5 (25-34) pg MCHC 32.7 (32-36) g/dL RDW Std Deviation 50.5 H (36.4-46.3) fL RDW Coeff of Ashley 14.2 (11.5-14.5) % Plt Count 234 (130-400) K/uL MPV 10.4 (7.4-10.4) fL Immature Gran % (Auto) 0.3 % Neut % (Auto) 71.1 % Lymph % (Auto) 15.9 % [place] % (Auto) 11.6 % Eos % (Auto) 1.0 % Baso % (Auto) 0.1 % Immature Gran # (Auto) 0.03 H (0.00-0.02) K/uL Neut # (Auto) 8.18 H (1.4-6.5) K/uL Lymph # (Auto) 1.83 (1.2-3.4) K/uL [place] # (Auto) 1.34 H (0.11-0.59) K/uL Eos # (Auto) 0.12 (0-0.5) K/uL Baso # (Auto) 0.01 (0-0.2) K/uL Sodium 138 (136-145) mmol/L Potassium 4.9 D (3.5-5.1) mmol/L Chloride 98 (98-107) mmol/L Carbon Dioxide 32 (21-32) mmol/L Anion Gap 8.0 (3-11) BUN 32 H (7-18) mg/dl Creatinine 1.23 (0.6-1.4) mg/dl Est Cr Clr Drug Dosing 42.8 ml/min Est GFR ( Amer) 60.4 Est GFR (Non-Af Amer) 52.1 BUN/Creatinine Ratio 26.3 H (10-20) Glucose 144 H (70-99) mg/dl POC Glucose (70-99) POC Lactic Acid Fazal (0.90-1.70) mmol/L Calcium 9.3 (8.5-10.1) mg/dl Magnesium 2.0 (1.8-2.4) mg/dl Total Bilirubin 0.5 (0.2-1) mg/dl AST 30 (15-37) U/L ALT 43 (12-78) U/L Alkaline Phosphatase 62 (45-117) U/L Troponin I 0.059 H* (0-0.045) ng/ml NT-Pro-B Natriuret Pep 8566 H (0-1800) pg/ml Total Protein 7.0 (6.4-8.2) gm/dl Albumin 3.4 (3.4-5.0) gm/dl Globulin 3.6 (2.5-4.0) gm/dl Albumin/Globulin Ratio 0.9 (0.9-2) Lipase 91 (73-393) U/L TSH 1.610 (0.300-4.500) uIu/ml Urine Color Yellow Urine Appearance Cloudy A (Clear) Urine pH 5.0 (4.5-7.5) Ur Specific [place] 1.021 (1.000-1.030) Urine Protein 2+ H (Negative) Urine Glucose (UA) Negative (Negative) Urine Ketones Negative (Negative) Urine Blood 2+ H (Negative) Urine Nitrite Negative (Negative) Urine Bilirubin Negative (Negative) Urine Urobilinogen Negative (Negative) Ur Leukocyte Esterase Negative (Negative) Urine WBC (Auto) 1-5 (0-5) /hpf Urine RBC (Auto) 10-30 H (0-4) /hpf U Hyaline Cast (Auto) 5-10 H (0-5) /lpf U Epithel Cells (Auto) 5-10 H (0-5) /lpf Urine Bacteria (Auto) Negative (Negative) Nasal Screen MRSA (PCR) (Negative) Medications Administered Current Inpatient Medications Acetaminophen (Tylenol) 650 mg PO Q4H PRN PRN Reason: mild pain or fever Stop: 08/11/19 05:45 Albuterol (Duoneb) 3 ml NEB Q6R [facility] Stop: 08/11/19 06:59 Last Admin: 07/12/19 07:46 Dose: 3 ml Documented by: Aspirin (Ecotrin Ectab) 81 mg PO DAILY [facility] Stop: 08/11/19 08:59 Dextrose (Dextrose 50%) 25 - 50 ml IV UD PRN; Protocol PRN Reason: Hypoglycemia Protocol Stop: 08/11/19 05:45 Ferrous Sulfate (Feosol) 325 mg PO Q2D@0900 [facility] Stop: 08/12/19 08:59 Finasteride (Proscar) 5 mg PO DAILY JOVANNY Stop: 08/11/19 08:59 Fluvastatin Sodium (Lescol) 80 mg PO HS [facility] Stop: 08/11/19 20:59 Furosemide (Lasix) 80 mg PO DAILY [facility] Stop: 08/11/19 08:59 Glucagon (Glucagen) 1 mg SQ UD PRN; Protocol PRN Reason: Hypoglycemia Protocol Stop: 08/11/19 05:45 Glucose (Glucose 40%) 15 - 30 gm PO UD PRN; Protocol PRN Reason: Hypoglycemia Protocol Stop: 08/11/19 05:45 Glucose (Dex4 Glucose) 4 - 8 tabs PO UD PRN; Protocol PRN Reason: Hypoglycemia Protocol Stop: 08/11/19 05:45 Diltiazem HCl 125 mg/ Dextrose 125 mls @ 15 mls/hr IV .Q8H20M [facility]; Protocol Stop: 08/10/19 23:44 Last Titration: 07/12/19 01:10 Dose: 15 mg/hr, 15 mls/hr Documented by: Heparin Sodium/Dextrose (Heparin Sodium/Dextrose) 25,000 units in 500 mls @ 18 mls/hr IV .Q24H [facility]; Protocol Stop: 08/11/19 03:59 Last Titration: 07/12/19 07:36 Dose: 850 units/hr, 17 mls/hr Documented by: Insulin Aspart (Novolog Flexpen) 0 units SC ACHS [facility] Stop: 08/11/19 07:29 Ioversol (Optiray 320 100ml) 100 ml IV ONCE PRN PRN Reason: Interaction Checking Stop: 07/16/19 02:24 Last Admin: 07/12/19 02:25 Dose: 93 ml Documented by: Magnesium Oxide (Mag-Ox) 400 mg PO BID [facility] Stop: 08/11/19 08:59 Metoprolol Succinate (Toprol Xl) 50 mg PO BID [facility] Stop: 08/11/19 08:59 Miscellaneous (Carbohydrates For Hypoglycemia) 15 - 30 gm PO UD PRN PRN Reason: Hypoglycemia Treatment Stop: 08/11/19 05:45 Ondansetron HCl (Zofran) 4 mg IV Q6H PRN PRN Reason: nausea or vomiting Stop: 08/11/19 05:45 Potassium Chloride (Klor-Con M20) 20 meq PO TID [facility] Stop: 08/11/19 08:59 PG Care Time/CCT Total # of Minutes Spent Total Time Spent with Patient: Total time spent is greater than 50% in coordination of care (as documented) at patient's floor/unit and/or counseling patient: Resident Activity Tracking Resident Involvement: Resident Care Provided Care Provided: Adult Hospital Medicine
[2019-07-12] MEDS ORDERED: PHARMACY GLYCEMIC MGMT CONSULT PRN (08:35)
[2019-07-12] MEDS: POTASSIUM CHLORIDE 20 MEQ TABCR PO SCH ×3 (08:51→21:06)
[2019-07-12] MEDS: ASPIRIN 81 MG ECTAB PO SCH (08:52)
[2019-07-12] MEDS: MAGNESIUM OXIDE 400 MG TAB PO SCH ×2 (08:52→21:07)
[2019-07-12] MEDS: FINASTERIDE 5 MG TAB PO SCH (08:52)
--- NOTE | 2019-07-12 08:52 | Pharmacy Report ---
Glycemic Control Consultation - Date of Service July 12, 2019 - Scope Scope: Glycemic Pharmacist consulted by Dr Vickers on 07/12 for glycemic control and to write orders per [facility] inpatient glycemic control protocol - Objective Weight: 93.8 kg Accuchecks BSG (last 24hrs): 07/11/19 07/12/19 22:25 06:13 Glucose 144 H POC Glucose 208 H Laboratory Data (last 24hrs): 07/11/19 22:25 Potassium 4.9 D Carbon Dioxide 32 Anion Gap 8.0 Creatinine 1.23 Est Cr Clr Drug Dosing 42.8 - Recent Pertinent Medications Outpatient Anti-diabetic Regimen: * metformin 500 mg bid * A1c = ordered for 07/13 AM Risk Factors for Insulin Resistance: * IVF: on heparin drip/diltiazem drip * Diet: T2DM - Assessment & Plan Assessment & Plan: ASSESSMENT: * 89 year old admitted with afib started on heparin drip and diltiazem drip. PMHx significant for afib, hld, CAD. Type 2 diabetes managed only on metformin at home. Unknown A1C - no A1C's on prior admissions. Will order for tomorrow AM * Fasting BSG elevated at 208 mg/dL - metformin held on admission, will start novolog SSI this morning. Type 2 diet ordered PLAN FOR INPATIENT GLYCEMIC CONTROL: * Pt is maintained on oral antidiabetic agents as an outpatient * Oral agents are not recommended for inpatient use d/t drug interactions, changing PO intake, and difficulty titrating for acute hyper/hypoglycemia. ADA recommends re-initiating outpatient oral agents 1-2 days prior to discharge if/when appropriate if they were held on admission. * Will hold oral agents for admission and utilize SQ basal bolus insulin regimen which is the recommended regimen for inpatient glycemic control. * Will initiate weight based insulin dosing for insulin jovanna patient and titrate based on BSG trends. * Basal insulin * Lantus - hold for now/may consider adding if fasting BSG remains elevated * Bolus insulin * NovoLog per scale ACHS or Q6hrs while NPO * Goal Range: Low 120 mg/dL - High 160 mg/dL * Correction Factor: 30 mg/dL/unit * Nutritional / Prandial insulin per carb ratio of 1 unit per 10 grams CHO consumed * Please note that the plan above was derived based on current level of insulin resistance and hospital stress. These recommendations are appropriate for inpatient admission only. Plan of care upon discharge will need to be reassessed to avoid potential outpatient hypo/hyperglycemia. Thank you.
[2019-07-12] MEDS: ACETAMINOPHEN 325 MG TAB PO PRN (08:58)
[2019-07-12] MEDS ORDERED: FUROSEMIDE 80 MG TAB PO SCH (09:00)
[2019-07-12] MEDS ORDERED: METOPROLOL SUCC 50MG EXT REL TAB PO SCH (09:00)
[2019-07-12] MEDS: INSULIN ASPART 100 UNITS/ML 3 ML PEN SC SCH ×4 (09:07→21:07)
[2019-07-12 10:21] LABS: Partial Thromboplastin Ratio 1.5; Partial Thromboplastin Time 41.2 Seconds (21.0-31.0)
[2019-07-12 10:48] LABS: BUN Creatinine Ratio 27.7 (10-20); Calcium 9.7 mg/dl (8.5-10.1); Creatinine Clr Calc Pharmacy 52.2 ml/min; Est GFR (African American) 76.6; Est GFR (Non-African American) 66.1; Potassium 4.8 mmol/L (3.5-5.1)
[2019-07-12] MEDS ORDERED: HEPARIN IV BOLUS 3,000 UNITS in SYRINGE 0 ML IV ONE (12:00)
--- NOTE | 2019-07-12 13:40 | Urology Consultation ---
Date of Consultation July 12, 2019 Assessment & Plan (1) BPH (benign prostatic hyperplasia): 89yo M admitted through [facility] ED, resident at [facility] after 12 hour hx of constant diffuse abd pain. Found to be in afib with RVR, respiratory distress, and possible UTI. CT without obstruction, however does reveal abnormal bladder wall thickening, irregularity to posterior and right lateral borders. Pt will benefit from outpatient cystoscopy once urgent medical concerns improve. Will start by sending urine cytology while inpatient. Appears that pt may have long standing bladder outlet obstruction, LUTS. Recommend maintaining deshpande for 5-7 days. Continue proscar while inpatient, will add tamsulosin given that he has been hemodynamically stable. Prelim UC&S pos for gram neg bacilli- awaiting final cultures. Will initiate broad spectrum abx for interim. Thank you for allowing us to participate in the inpatient care of Mr. Alcocer. We will continue to monitor peripherally while inpatient. History of Present Illness Reason for Consultation: abnormality on CT, hematuria Requesting Physician: Dr. Acosta Attending Physician: Anabell Acosta, History of Present Illness 89yo M admitted through [facility] ED, resident at [facility] after 12 hour hx of constant diffuse abd pain. Found to be in afib with RVR, respiratory distress, and possible UTI. Patient is poor historian, daughter at bedside is from out of town and also unfamiliar with medical details. Pt does admit to increased urinary urgency, frequency. Recent admission to [facility] for similar complaints, and pt did require straight cath at that time. Deshpande catheter placed for strict I&Os per nursing, draining henrry/blood tinged. Still acknowledging abdominal bloating, lack of appetite. No major discomfort with deshpande catheter. He denies ever having urology evaluation, however does take saw palmetto and finasteride for BPH. Currently on Bipap for resp distress but able to speak in full sentences through it. Allergies Allergy/AdvReac Type Severity Reaction Status Date / Time simvastatin Allergy Unknown Unknown Verified 07/12/19 00:57 Home Medications Home Medications Medication Instructions Recorded Confirmed Type acetaminophen [Tylenol] 650 mg PO BID 07/12/19 07/12/19 History acetaminophen [Tylenol] 650 mg PO Q6H PRN 07/12/19 07/12/19 History aluminum-magnesium hydroxide 20 ml PO Q6H PRN 07/12/19 07/12/19 History ascorbic acid (vitamin C) [Vitamin 500 mg PO Q2D 07/12/19 07/12/19 History C] aspirin 81 mg PO DAILY 07/12/19 07/12/19 History cyanocobalamin (vitamin B-12) 1,000 mcg PO 3XWK 07/12/19 07/12/19 History [Vitamin B-12] docusate sodium 100 mg PO DAILY PRN 07/12/19 07/12/19 History ferrous sulfate 325 mg PO Q2D 07/12/19 07/12/19 History finasteride 5 mg PO DAILY 07/12/19 07/12/19 History fluvastatin 80 mg PO HS 07/12/19 07/12/19 History furosemide [Lasix] 80 mg PO DAILY 07/12/19 07/12/19 History ipratropium-albuterol 3 ml INHALATION Q4H 07/12/19 07/12/19 History magnesium oxide 400 mg PO BID 07/12/19 07/12/19 History metformin 500 mg PO BID 07/12/19 07/12/19 History metoprolol succinate 50 mg PO BID 07/12/19 07/12/19 History multivitamin 1 tab PO 4XWK 07/12/19 07/12/19 History omega 0-wtx-siu-fish oil [Fish Oil] 1 cap PO BID 07/12/19 07/12/19 History potassium chloride 20 meq PO TID 07/12/19 07/12/19 History saw palmetto 160 mg PO DAILY 07/12/19 07/12/19 History Patient History Medical History Type II diabetes mellitus (Chronic) Hyperlipidemia (Chronic) BPH (benign prostatic hyperplasia) (Chronic) CAD (coronary artery disease) (Chronic) CHF (congestive heart failure) Urinary retention Surgical History History of hernia surgery History of quadruple bypass Family History Other No significant family history Social History Preferred Language: Swiss Communication Ability: Effective Beliefs That Will Affect Care: None Current Living Situation: Spouse Feels Safe at Home: Yes Smoking Status: Unknown if ever smoked Hx Alcohol Use: No Hx Substance Use: No Review of Systems Review of Systems: All systems reviewed & are unremarkable except as noted in HPI & below Physical Exam Constitutional: no acute distress and not ill appearing Eyes: no nystagmus ENMT: Ears: no hearing impairment Neck: trachea midline Respiratory: no respiratory distress and no cough Cardiovascular: Vessels: no JVD Chest (Breasts): Chest: normal inspection of chest Gastrointestinal (Abdomen): Inspection/Auscultation: abdomen not distended and no abdominal edema Percussion/Palpation: abdomen soft; abdomen nontender Musculoskeletal: Head/Neck/Chest: normocephalic and head atraumatic Skin: no rashes, warm and dry Neurologic: awake; not confused and not obtunded Psychiatric: Orientation: alert and oriented x 3 Eye Contact: good eye contact Affect: no depressed affect Genitourinary: no CVA tenderness deshpande intact, draining henrry/blood tinged Lymphatic: no lymphadenopathy and no lymphedema Results & Data Vital Signs (Past 12 Hours) Vital Signs Temp Pulse Pulse Pulse Resp BP BP 07/12/19 13:15 88 34 H 07/12/19 13:13 88 34 H 07/12/19 11:18 83 30 H 07/12/19 10:55 36.4 C L 93 H 25 H 138/72 07/12/19 08:12 36.4 C L 73 26 H 138/82 07/12/19 07:47 88 88 24 07/12/19 06:52 93 H 07/12/19 05:35 86 24 141/88 H 07/12/19 04:12 108 H 16 115/78 07/12/19 03:02 114 H 24 151/99 H 07/12/19 02:50 113 H 36 H 07/12/19 02:49 110 H 36 H 07/12/19 02:41 152/109 H 07/12/19 02:34 118 H 27 H 157/104 H 07/12/19 01:49 108 H 40 H 166/112 H 07/12/19 01:48 110 H 20 166/112 H Pulse Ox 07/12/19 13:15 07/12/19 13:13 96 07/12/19 11:18 92 07/12/19 10:55 94 07/12/19 08:12 92 07/12/19 07:47 94 07/12/19 06:52 07/12/19 05:35 93 07/12/19 04:12 92 07/12/19 03:02 93 07/12/19 02:50 94 07/12/19 02:49 94 07/12/19 02:41 91 07/12/19 02:34 85 L 07/12/19 01:49 90 07/12/19 01:48 92 PG Care Time/CCT Total # of Minutes Spent Total Time Spent with Patient: Total time spent is greater than 50% in coordination of care (as documented) at patient's floor/unit and/or counseling patient:
--- NOTE | 2019-07-12 14:17 | Cardiology Consultation ---
Date of Consultation July 12, 2019 Assessment & Plan (1) Atrial fibrillation with RVR: This appears to be a new diagnosis. He is and what decompensated heart failure which may have either precipitated or exacerbated his atrial fibrillation or be resultant from this arrhythmia. He is not aware of the arrhythmia. He has been in contact with multiple providers over the past month and apparently did not have this diagnosis previously. Currently he is on a diltiazem infusion. I would advocate up titration of his beta blockade. This would be more efficacious in the setting of his cardiomyopathy. He will need ongoing systemic anticoagulation as an outpatient. It is unclear this time whether he will require any additional interventions while in the hospital regarding his bladder. However at some point we can transition him to an oral agent. His renal function appears adequate either for Eliquis 5 mg twice daily or Xarelto 20 mg daily (2) CAD (coronary artery disease): He reports a remote history of coronary artery bypass grafting. He has some atypical symptoms of arm discomfort currently. He has some very mildly elevated biomarkers which are not suggestive of an acute coronary syndrome. He has been maintained as an outpatient on aspirin, fluvastatin and metoprolol. Given his reduced LV systolic function we may need to perform coronary angiography at some point. (3) Elevated troponin: Very low level elevations. More reflective of his congestive heart failure than acute coronary syndrome. (4) Cardiomyopathy: It is unclear whether he had a diagnosed cardiomyopathy at [facility]. He cannot recall having an echocardiogram done. Nonetheless, he has reduced LV function on his echocardiogram today. This is likely ischemic given his history of coronary disease. This could be made worse by atrial fibrillation and rapid ventricular rates. I think we will attempt to control his rate and perform diuresis currently. We will add an Jose Armando inhibitor as tolerated. At some point we may need to perform coronary and graft angiography, but this can likely be deferred to the outpatient setting. (5) Acute systolic congestive heart failure: He does not appear to have affected a adequate diuresis. He will need more aggressive administration loop diuretics in order to effect resolution of h is pulmonary edema. History of Present Illness Reason for Consultation: Atrial fibrillation Requesting Physician: Dave Attending Physician: Anabell Acosta DO History of Present Illness The patient is an 81-year-old gentleman with a prior history of coronary disease having previously undergone surgical revascularization quite remotely. It seems that he was recently admitted to [facility] with symptoms of congestive heart failure. Patient states that approximately 1 month ago he began to experience some lower extremity edema that was fairly severe in nature. 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 He cannot recall any specific tests being performed at that time but did report some improvement in his lower extremity edema prior to his discharge to [facility]. More recently he has been having some abdominal complaints. He states that he has had some abdominal pain in the lower abdomen. This appears to wax and wane in severity. He feels there may be some association with eating. Interestingly, he was undergoing intermittent straight catheterization of his bladder at [facility]. This was not require prior to his admission at [facility]. In general, he is a very sedentary individual. He cares for his who has ALS. He is able perform mild activity without limitation. He states that earlier this year he was exercising regularly using light weights and exercise machines. He did not report associated chest discomfort or limiting dyspnea. However, he freely admits to doing little activity recently. He denies any sense of palpitation. He has not been told in the past that he had atrial fibrillation. He does not recall his diagnosis being made at [facility]. He does report occasional symptoms of chest discomfort. More specifically this seems to be mostly arm discomfort. This is bilateral in nature. There is not appear to be any precipitating cause for this discomfort. His been going on for few weeks now. It tends to be relieved with Tylenol. Currently he continues to have an element of abdominal discomfort. He also has breathing difficulty if he removed his CPAP. He continues to have swelling in his lower extremities. Allergies Allergy/AdvReac Type Severity Reaction Status Date / Time simvastatin Allergy Unknown Unknown Verified 07/12/19 00:57 Home Medications Home Medications Medication Instructions Recorded Confirmed Type acetaminophen [Tylenol] 650 mg PO BID 07/12/19 07/12/19 History acetaminophen [Tylenol] 650 mg PO Q6H PRN 07/12/19 07/12/19 History aluminum-magnesium hydroxide 20 ml PO Q6H PRN 07/12/19 07/12/19 History ascorbic acid (vitamin C) [Vitamin 500 mg PO Q2D 07/12/19 07/12/19 History C] aspirin 81 mg PO DAILY 07/12/19 07/12/19 History cyanocobalamin (vitamin B-12) 1,000 mcg PO 3XWK 07/12/19 07/12/19 History [Vitamin B-12] docusate sodium 100 mg PO DAILY PRN 07/12/19 07/12/19 History ferrous sulfate 325 mg PO Q2D 07/12/19 07/12/19 History finasteride 5 mg PO DAILY 07/12/19 07/12/19 History fluvastatin 80 mg PO HS 07/12/19 07/12/19 History furosemide [Lasix] 80 mg PO DAILY 07/12/19 07/12/19 History ipratropium-albuterol 3 ml INHALATION Q4H 07/12/19 07/12/19 History magnesium oxide 400 mg PO BID 07/12/19 07/12/19 History metformin 500 mg PO BID 07/12/19 07/12/19 History metoprolol succinate 50 mg PO BID 07/12/19 07/12/19 History multivitamin 1 tab PO 4XWK 07/12/19 07/12/19 History omega 0-xcp-nhx-fish oil [Fish Oil] 1 cap PO BID 07/12/19 07/12/19 History potassium chloride 20 meq PO TID 07/12/19 07/12/19 History saw palmetto 160 mg PO DAILY 07/12/19 07/12/19 History Patient History Medical History Type II diabetes mellitus (Chronic) Hyperlipidemia (Chronic) BPH (benign prostatic hyperplasia) (Chronic) CAD (coronary artery disease) (Chronic) CHF (congestive heart failure) Urinary retention Surgical History History of hernia surgery History of quadruple bypass Family History Other No significant family history Social History Preferred Language: Azeri Communication Ability: Effective Beliefs That Will Affect Care: None Current Living Situation: Spouse Feels Safe at Home: Yes Smoking Status: Unknown if ever smoked Hx Alcohol Use: No Hx Substance Use: No Review of Systems Review of Systems: All systems reviewed & are unremarkable except as noted in HPI & below No difficulty eating. Some anorexia loss of appetite recently. Continue lower extremity edema. No fevers or chills. Physical Exam Physical Exam: The patient is alert and oriented. Mood and affect appeared normal. He answered all questions appropriately. Obese. Using CPAP. HEENT: Pupils are equal and reactive to light and accommodation. Extraocular movements are intact. The sclerae are anicteric. Neuro: Cranial nerves intact Neck: Patient's neck is supple. He has palpable carotid pulses bilaterally without bruits on auscultation. There is no evidence of jugular venous distention. The thyroid is not enlarged. Lungs: Reduced excursion. Crackles at the bases bilaterally. No expiratory wheezing. Cardiac: Heart demonstrates an irregular rate and rhythm. Normal S1 and S2. No murmurs on examination. Abdomen: Appears distended. Nontender to palpation. Pulses: The patient has palpable radial pulses bilaterally that are equal in intensity Extremities: There was no evidence of hypoperfusion. There is no cyanosis or clubbing. Moderate bilateral lower extremity edema Skin: I did not appreciate any rashes on examination today. Results & Data Vital Signs (Past 12 Hours) Vital Signs Temp Pulse Pulse Pulse Resp BP BP 07/12/19 13:15 88 34 H 07/12/19 13:13 88 34 H 07/12/19 11:18 83 30 H 07/12/19 10:55 36.4 C L 93 H 25 H 138/72 07/12/19 08:12 36.4 C L 73 26 H 138/82 07/12/19 07:47 88 88 24 07/12/19 06:52 93 H 07/12/19 05:35 86 24 141/88 H 07/12/19 04:12 108 H 16 115/78 07/12/19 03:02 114 H 24 151/99 H 07/12/19 02:50 113 H 36 H 07/12/19 02:49 110 H 36 H 07/12/19 02:41 152/109 H 07/12/19 02:34 118 H 27 H 157/104 H Pulse Ox 07/12/19 13:15 07/12/19 13:13 96 07/12/19 11:18 92 07/12/19 10:55 94 07/12/19 08:12 92 07/12/19 07:47 94 07/12/19 06:52 07/12/19 05:35 93 07/12/19 04:12 92 07/12/19 03:02 93 07/12/19 02:50 94 07/12/19 02:49 94 07/12/19 02:41 91 07/12/19 02:34 85 L Laboratory Results Abnormal Lab Results 07/11/19 07/11/19 07/11/19 22:25 22:25 23:41 WBC 11.51 H RBC 4.06 L Hgb 12.8 L Hct 39.2 L MCV 96.6 MCH 31.5 MCHC 32.7 RDW Std Deviation 50.5 H RDW Coeff of Ashley 14.2 Plt Count 234 MPV 10.4 Immature Gran % (Auto) 0.3 Neut % (Auto) 71.1 Lymph % (Auto) 15.9 Lipscomb % (Auto) 11.6 Eos % (Auto) 1.0 Baso % (Auto) 0.1 Immature Gran # (Auto) 0.03 H Neut # (Auto) 8.18 H Lymph # (Auto) 1.83 Lipscomb # (Auto) 1.34 H Eos # (Auto) 0.12 Baso # (Auto) 0.01 APTT PTT Ratio Sodium 138 Potassium 4.9 D Chloride 98 Carbon Dioxide 32 Anion Gap 8.0 BUN 32 H Creatinine 1.23 Est Cr Clr Drug Dosing 42.8 Est GFR ( Amer) 60.4 Est GFR (Non-Af Amer) 52.1 BUN/Creatinine Ratio 26.3 H Glucose 144 H POC Glucose POC Lactic Acid Fazal Calcium 9.3 Magnesium 2.0 Total Bilirubin 0.5 AST 30 ALT 43 Alkaline Phosphatase 62 Troponin I 0.059 H* NT-Pro-B Natriuret Pep 8566 H Total Protein 7.0 Albumin 3.4 Globulin 3.6 Albumin/Globulin Ratio 0.9 Lipase 91 TSH 1.610 Urine Color Yellow Urine Appearance Cloudy A Urine pH 5.0 Ur Specific [place] 1.021 Urine Protein 2+ H Urine Glucose (UA) Negative Urine Ketones Negative Urine Blood 2+ H Urine Nitrite Negative Urine Bilirubin Negative Urine Urobilinogen Negative Ur Leukocyte Esterase Negative Urine WBC (Auto) 1-5 Urine RBC (Auto) 10-30 H U Hyaline Cast (Auto) 5-10 H U Epithel Cells (Auto) 5-10 H Urine Bacteria (Auto) Negative Nasal Screen MRSA (PCR) 10/09/19 10/10/19 10/10/19 23:55 06:13 06:24 WBC RBC Hgb Hct MCV MCH MCHC RDW Std Deviation RDW Coeff of Ashley Plt Count MPV Immature Gran % (Auto) Neut % (Auto) Lymph % (Auto) Lipscomb % (Auto) Eos % (Auto) Baso % (Auto) Immature Gran # (Auto) Neut # (Auto) Lymph # (Auto) Lipscomb # (Auto) Eos # (Auto) Baso # (Auto) APTT PTT Ratio Sodium Potassium Chloride Carbon Dioxide Anion Gap BUN Creatinine Est Cr Clr Drug Dosing Est GFR ( Amer) Est GFR (Non-Af Amer) BUN/Creatinine Ratio Glucose POC Glucose 208 H POC Lactic Acid Fazal 1.12 Calcium Magnesium Total Bilirubin AST ALT Alkaline Phosphatase Troponin I NT-Pro-B Natriuret Pep Total Protein Albumin Globulin Albumin/Globulin Ratio Lipase TSH Urine Color Urine Appearance Urine pH Ur Specific [place] Urine Protein Urine Glucose (UA) Urine Ketones Urine Blood Urine Nitrite Urine Bilirubin Urine Urobilinogen Ur Leukocyte Esterase Urine WBC (Auto) Urine RBC (Auto) U Hyaline Cast (Auto) U Epithel Cells (Auto) Urine Bacteria (Auto) Nasal Screen MRSA (PCR) Negative 07/12/19 07/12/19 07/12/19 09:04 09:59 09:59 WBC RBC Hgb Hct MCV MCH MCHC RDW Std Deviation RDW Coeff of Ashley Plt Count MPV Immature Gran % (Auto) Neut % (Auto) Lymph % (Auto) Lipscomb % (Auto) Eos % (Auto) Baso % (Auto) Immature Gran # (Auto) Neut # (Auto) Lymph # (Auto) Lipscomb # (Auto) Eos # (Auto) Baso # (Auto) APTT 41.2 H PTT Ratio 1.5 Sodium 135 L Potassium 4.8 Chloride 97 L Carbon Dioxide 31 Anion Gap 7.0 BUN 28 H Creatinine 1.01 Est Cr Clr Drug Dosing 52.2 Est GFR ( Amer) 76.6 Est GFR (Non-Af Amer) 66.1 BUN/Creatinine Ratio 27.7 H Glucose 180 H POC Glucose 189 H POC Lactic Acid Fazal Calcium 9.7 Magnesium Total Bilirubin AST ALT Alkaline Phosphatase Troponin I NT-Pro-B Natriuret Pep Total Protein Albumin Globulin Albumin/Globulin Ratio Lipase TSH Urine Color Urine Appearance Urine pH Ur Specific [place] Urine Protein Urine Glucose (UA) Urine Ketones Urine Blood Urine Nitrite Urine Bilirubin Urine Urobilinogen Ur Leukocyte Esterase Urine WBC (Auto) Urine RBC (Auto) U Hyaline Cast (Auto) U Epithel Cells (Auto) Urine Bacteria (Auto) Nasal Screen MRSA (PCR) 07/12/19 07/12/19 11:22 11:53 WBC RBC Hgb Hct MCV MCH MCHC RDW Std Deviation RDW Coeff of Ashley Plt Count MPV Immature Gran % (Auto) Neut % (Auto) Lymph % (Auto) Lipscomb % (Auto) Eos % (Auto) Baso % (Auto) Immature Gran # (Auto) Neut # (Auto) Lymph # (Auto) Lipscomb # (Auto) Eos # (Auto) Baso # (Auto) APTT PTT Ratio Sodium Potassium Chloride Carbon Dioxide Anion Gap BUN Creatinine Est Cr Clr Drug Dosing Est GFR ( Amer) Est GFR (Non-Af Amer) BUN/Creatinine Ratio Glucose POC Glucose 148 H POC Lactic Acid Fazal Calcium Magnesium Total Bilirubin AST ALT Alkaline Phosphatase Troponin I 0.066 H* NT-Pro-B Natriuret Pep Total Protein Albumin Globulin Albumin/Globulin Ratio Lipase TSH Urine Color Urine Appearance Urine pH Ur Specific [place] Urine Protein Urine Glucose (UA) Urine Ketones Urine Blood Urine Nitrite Urine Bilirubin Urine Urobilinogen Ur Leukocyte Esterase Urine WBC (Auto) Urine RBC (Auto) U Hyaline Cast (Auto) U Epithel Cells (Auto) Urine Bacteria (Auto) Nasal Screen MRSA (PCR) Diagnostic Findings CT of the abdomen revealed some minor bladder abnormalities and cholelithiasis. No overt ascites. No other intraperitoneal or intra-abdominal process. Chest x-ray suggested pulmonary edema. CT scan also confirmed the presence small bilateral pleural effusions, cardiomegaly and coronary calcifications. 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
[2019-07-12] MEDS: FUROSEMIDE 80 MG in SYRINGE 0 ML IV SCH ×2 (16:09→19:50)
[2019-07-12] MEDS: MoRPHine SULFATE 2 MG/ML CARP IV PRN (16:09)
[2019-07-12] MEDS: cefTRIAXone SODIUM 2,000 MG in DEXTROSE 5% 50 ML IV SCH (16:09)
[2019-07-12] MEDS: METOPROLOL TARTRATE 50 MG TAB PO SCH ×2 (16:31→19:51)
[2019-07-12 18:30] LABS: Partial Thromboplastin Ratio 2.1
[2019-07-12 18:41] LABS: Partial Thromboplastin Time 57.2 Seconds (21.0-31.0)
[2019-07-12] MEDS ORDERED: FUROSEMIDE 40 MG/4 ML VIAL IV ONE (19:28)
--- NOTE | 2019-07-12 19:37 | Progress Note ---
Date of Service July 12, 2019 Supervising Physician Co-Signing Physician Notes Subjective S: called to bedside by nursing due to concern for respiratory distress -- pt pulled tubing from cpap mask and was yelling out. When nursing tried to replace tubing, pt was resisting, so mask was removed. sats went down in to 80s. brief rev of records reveals this gentleman is here for CHF exacerbation, ascites, urinary retention, and new onset afib with RVR. he is a dnr/dni and I did confirm that with him upon my interview. he c/o not being able "to breathe". O: GEN: pt is diaphoretic, eyes are closed but open to voice, he is verbal RESP: diminished sounds bilaterally. no audible crackles. LOWER EXT: pitting edema bilaterally 2+ A/P: chf exacerbation - stat CXR ordered - without improvement, possible slight worsening. Due for 80mg IV lasix at 2100 -- that will be given now at 1930. respiratory distress - clearly having the tubing out of place and a mask on face would cause impairment to oxygenation - seemed to improve once mask in place. pt is not delirious, but he does seem understandably anxious. currently he has morphine ordered prn for abdominal pain, presumably from ascites. would like to avoid concomitant benzos in an elderly gentleman here with respiratory distress. continue bipap per RT, appreciate management. will add one-to-one PRN if pt appears to be more restless or agitated, I discussed with him that keeping his mask in place is extremely important. Rohini Simon PGY3 FMR Results & Data Vital Signs (Past 12 Hours) Vital Signs Temp Pulse Pulse Pulse Resp BP Pulse Ox 07/12/19 19:11 36.6 C 84 20 108/61 96 07/12/19 19:01 86 22 95 07/12/19 18:58 86 22 93 07/12/19 16:00 80 07/12/19 15:56 36.6 C 82 18 114/69 92 07/12/19 13:15 88 34 H 07/12/19 13:13 88 34 H 96 07/12/19 11:18 83 30 H 92 07/12/19 10:55 36.4 C L 93 H 25 H 138/72 94 07/12/19 08:12 36.4 C L 73 26 H 138/82 92 07/12/19 08:00 91 H 07/12/19 07:47 88 88 24 94 Resident Activity Tracking Resident Involvement: Resident Care Provided Care Provided: Adult Hospital Medicine
--- NOTE | 2019-07-12 19:49 | XRay Report ---
XR chest 1V portable HISTORY: 89 years-old Male sob acute shortness of breath COMPARISON: Chest radiograph 07/11/2019, CT abdomen and pelvis 07/12/2019 TECHNIQUE: Semierect portable AP view of the chest FINDINGS: Cardiac silhouette is enlarged, unchanged. Prior median sternotomy. Persistent left hemidiaphragm sonny vation with left basilar consolidative opacities. Pulmonary vascular congestion with interstitial coa rsening. No large pleural effusion or pneumothorax. Degenerative changes of the shoulders and spine. IMPRESSION: 1. Cardiomegaly with mild pulmonary edema. 2. Unchanged left basilar consolidative opacities with left hemidiaphragmatic elevation is suggestive of atelectasis. Correlate clinically to exclude pneumonitis. The above report was generated using voice recognition software. It may contain grammatical, syntax o r spelling errors. Electronically signed by: Luis Holguin M.D. 07/12/2019 7:48 PM
[2019-07-12] MEDS: FLUVASTATIN SODIUM 20 MG CAP PO SCH (21:06)
[2019-07-12] MEDS: TAMSULOSIN HCL 0.4 MG CAP PO SCH (21:06)
[2019-07-13] MEDS: MoRPHine SULFATE 2 MG/ML CARP IV PRN ×2 (00:10→20:22)
[2019-07-13] MEDS: METOPROLOL TARTRATE 50 MG TAB PO SCH ×4 (00:15→17:47)
[2019-07-13] MEDS: ALBUT/IPRATROP 3MG/0.5MG NEB 3 ML VIAL NEB SCH ×4 (01:05→19:00)
[2019-07-13] MEDS: dilTIAZem HCl 125 MG in DEXTROSE 5% 100 ML IV SCH (05:09)
[2019-07-13] MEDS: HEPARIN SODIUM/DEXTROSE 25,000 UNITS/500 ML BAG IV SCH (05:09)
[2019-07-13 06:53] LABS: Hematocrit (blood only) 39.4 % (42-52); Hemoglobin 12.8 g/dL (14.0-18.0); Mean Corpuscular Hemoglobin 31.1 pg (25-34); Mean Corpuscular Hgb Conc 32.5 g/dL (32-36); Mean Corpuscular Volume 95.6 fL (80-100); Mean Platelet Volume 9.8 fL (7.4-10.4); Platelet Count 221 K/uL (130-400); RDW Coefficient of Variation 13.8 % (11.5-14.5); RDW Standard Deviation 48.2 fL (36.4-46.3); Red Blood Count 4.12 M/uL (4.7-6.1); White Blood Count 10.48 K/uL (4.8-10.8)
[2019-07-13 07:16] LABS: Partial Thromboplastin Ratio 1.8
[2019-07-13 07:26] LABS: Partial Thromboplastin Time 49.5 Seconds (21.0-31.0)
[2019-07-13 07:27] LABS: BUN Creatinine Ratio 22.1 (10-20); Calcium 8.7 mg/dl (8.5-10.1); Creatinine Clr Calc Pharmacy 53.3 ml/min; Est GFR (African American) 80.5; Est GFR (Non-African American) 69.4; Magnesium 1.9 mg/dl (1.8-2.4); Potassium 3.6 mmol/L (3.5-5.1)
--- NOTE | 2019-07-13 08:00 | Family Medicine Progress Note ---
Date of Service July 13, 2019 Assessment & Plan (1) Atrial fibrillation with RVR: #Atrial fibrillation with RVR: Patient presented from [facility] with complaints of abdominal fullness and distention, upon presentation to [facility] emergency department he was found to be in atrial fibrillation with rapid ventricular response. He was started on a heparin drip and a Cardizem drip. Has had a reasonable response to the cardiac exam so far. Cardiology is consulted a ppreciate their recommendations with regard to transition to oral rate medication for rate control. -Presumed to be new A.fib -Cardizem gtt dc'd -Cardiology consulted appreciate recommendations -Continue aggressive diuresis, trial of Bumex. -Recommend optimizing beta-reva for rate control as opposed to calcium channel reva. -Consider coronary angiography, likely can be deferred to outpatient -Once BP is stable and rate control achieved consider adding MANUEL -dc'd heparin gtt and asprin at 15:40, started on xarelto @ 16:40 -Echo demonstrates -Moderate global hypokinesis LV, mild reduction of LV systolic function -RV systolic function reduced, RV mildly dilated, increased RV systolic pressure to 30 to 40 mmHg -Left and right atrium mildly dilated -Aortic sclerosis with aortic stenosis, moderate mitral regurg #Acute on chronic CHF exacerbation Per the family patient was recently diagnosed with CHF during his most recent admission at [facility] and subsequently discharged to [facility]. His current presentation likely represents a CHF exacerbation given, need for BiPAP, cardiac findings,elevated BNP to 8500 and physical exam findings along with recent weight gain. He will need to be worked up and further evaluated by cardiology for this. I contacted [facility] this morning and he reported the patient had a dry weight of 194.5 admission weight was 206 12 lb weight gain. Given Patient takes 80 mg of Lasix daily as an outpatient. -Dry weight goal 87 kg -93.8->90.0-> -Respiratory exam still demonstrating rales -Trial of Bumex 1 mg twice daily today not significantly effective will increase to 2 mg tomorrow -Given dose of Lasix 40 mg IV -Strict I/O's #Acute respiratory failure with hypoxia: Patient comfortable and saturating well on BiPAP, appears comfortable on physical exam. Secondary to congestive heart failure likely exacerbated in the setting of atrial fibrillation with RVR. -Wean O2 as tolerated -Management as above -Duonebs prn #Pulmonary edema -Management as above #Abdominal distention Patient presenting with significant abdominal distention and fullness with tenderness to palpation. Abdominal CT was performed on admission. CT demonstrated congestive failure/fluid overload, gallbladder wall edema secondary to generalized volume overload, nonspecific 4 mm enhancing lesion within the right level liver, large left renal parapelvic cyst, prostamegaly, bladder wall thickening and infiltration of adjacent fat, cannot exclude cystitis cannot exclude malignancy. -Suspect abdominal discomfort and distention secondary to fluid overloaded status, improving with diuresis -Morphine 2 mg every 4 hours as needed provided for pain discomfort and air hunger, try to limit usage as it may decrease respiratory drive -Has received 2 doses over last 24 hours #Bladder wall thickening Suspicious for malignancy versus cystitis -Consulted uro following recs -Long-standing bladder outlet obstruction, maintain Lopez for 5 to 7 days -Proscar while inpatient, add tamsulosin -Preliminary urinary cultures are positive for gram-negative bacilli started on ceftriaxone -Urine cytology followed by outpatient cystoscopy #Elevated troponin: Likely secondary to demand ischemia trending troponins. -Trop 0.059-> #Type II diabetes mellitus: Heart healthy and diabetic diet. -Hold Metformin -glycemic consult placed #Hyperlipidemia: -Continue Fluvastatin #CAD (coronary artery disease): -continue Metoprolol and aspirin FENa:DMII Code Status:DNR/DNI DVT PPX: Heparin PT/OT: as pt improves Dispo:PCU Alcides Vickers MD PGY 2, FCM This chart was completed utilizing boo-box voice recognition software. Grammatical errors, random word insertions, pronoun errors, and in complete sentences are an occasional consequence of the system. Any questions or concerns about the content, text, or information contained within the body of this dictation should be addressed directly to the physician for clarification. Supervising Physician Co-Signing Physician Notes Attending attestation Pt seen and examined in concert with Dr. Vickers. In agreement with the documented findings as noted in the resident documentation with any exceptions or additions as noted here. Reports improvement in shortness of breath from yesterday and tolerating NC well. Considerable diuresis yesterday tolerated well. On examination, S1/S2 nl IRR IRR. Decreased breath sounds B/L bases but no rales/rhonchi. NT/ND abd, BS +ve. B/L LE edema 2+ to the knees. AF with RVR and pulmonary edema w/ HFrEF - rate controlled, transition to PO metoprolol for rate control. Add rivaroxaban for AC. Continue diuresis w/ BID bumex (increase to 2mg in AM). 40mg IV lasix in addition today. Monitor I/O Bacturia - tolerating ceftriaxone, f/u Cx Abnormal bladder on CT - urology consultation appreciated, following for outpatient mgmt Else see resident documentation as noted. Subjective Patient laying the bed this morning in no acute distress. Patient doing significantly better from yesterday, less edematous, subjective improvement in his breathing, objective improvement in his breathing, and mentating significantly better. Patient is voiding, stooling, and tolerating his diet, sleeping. Provided extensive counseling on congestive heart failure, risks for acute exacerbation, and the symptoms that probably led to his current presentation. We also discussed the bladder findings, and UTI findings. No acute concerns at present, all questions answered. Review of Systems Constitutional: + fatigue; no fever and no chills Respiratory: + dyspnea and + dyspnea on exertion; no cough Cardiovascular: + orthopnea; no chest pain, no palpitations and no lightheadedness Gastrointestinal: no nausea, no vomiting and no change in stools Genitourinary: + problem reported; no flank pain and no urinary urgency Neurologic: + generalized weakness; no falls and no numbness Physical Exam Physical Exam: General: Elderly gentleman lying in no acute distress HEENT: Normocephalic atraumatic Neck: Normal visual inspection Cardiac: Irregularly irregular rhythm, I did not appreciate significant murmurs, rubs, gallops, 2+ pedal edema, negative calf tenderness Respiratory: Difficult to appreciate secondary to BiPAP, borderline tachypnea, rales present in dependent lung martinez, I did not appreciate significant wheezes or rhonchi GI: Protuberant abdomen with distention, and decreased tenderness to palpation throughout all quadrants, bowel sounds present although, was not able to appreciate a fluid wave. MSK: Moves all extremities Neuro: Alert and oriented x4, mentating well Psych: Calm, cooperative Results & Data Vital Signs (Past 12 Hours) Vital Signs Temp Pulse Pulse Pulse Resp BP Pulse Ox 07/13/19 07:30 87 28 H 93 07/13/19 07:29 36.8 C 99 H 21 112/65 95 07/13/19 04:52 37.0 C 101 H 23 123/65 92 07/13/19 04:00 85 12 129/83 93 07/13/19 03:00 81 12 120/82 92 07/13/19 01:06 87 24 91 07/13/19 01:05 87 24 91 07/12/19 22:57 37.1 C 86 20 118/69 91 07/12/19 22:00 92 H 12 103/61 92 07/12/19 21:55 100 H 27 H 91 Laboratory Results 07/13/19 07/13/19 07/13/19 Range/Units 11:27 07:30 06:42 WBC (4.8-10.8) K/uL RBC (4.7-6.1) M/uL Hgb (14.0-18.0) g/dL Hct (42-52) % MCV (80-100) fL MCH (25-34) pg MCHC (32-36) g/dL RDW Std Deviation (36.4-46.3) fL RDW Coeff of Ashley (11.5-14.5) % Plt Count (130-400) K/uL MPV (7.4-10.4) fL APTT 49.5 H* (21.0-31.0) Seconds PTT Ratio 1.8 Sodium (136-145) mmol/L Potassium (3.5-5.1) mmol/L Chloride (98-107) mmol/L Carbon Dioxide (21-32) mmol/L Anion Gap (3-11) BUN (7-18) mg/dl Creatinine (0.6-1.4) mg/dl Est Cr Clr Drug Dosing ml/min Est GFR ( Amer) Est GFR (Non-Af Amer) BUN/Creatinine Ratio (10-20) Glucose (70-99) mg/dl POC Glucose 146 H 115 H (70-99) Estimat Average Glucose mg/dl Hemoglobin A1c (4.5-5.6) % Calcium (8.5-10.1) mg/dl Magnesium (1.8-2.4) mg/dl Troponin I (0-0.045) ng/ml 07/13/19 07/13/19 07/13/19 Range/Units 06:42 06:42 06:42 WBC 10.48 (4.8-10.8) K/uL RBC 4.12 L (4.7-6.1) M/uL Hgb 12.8 L (14.0-18.0) g/dL Hct 39.4 L (42-52) % MCV 95.6 (80-100) fL MCH 31.1 (25-34) pg MCHC 32.5 (32-36) g/dL RDW Std Deviation 48.2 H (36.4-46.3) fL RDW Coeff of Ashley 13.8 (11.5-14.5) % Plt Count 221 (130-400) K/uL MPV 9.8 (7.4-10.4) fL APTT (21.0-31.0) Seconds PTT Ratio Sodium 139 (136-145) mmol/L Potassium 3.6 D (3.5-5.1) mmol/L Chloride 96 L (98-107) mmol/L Carbon Dioxide 37 H (21-32) mmol/L Anion Gap 6.0 (3-11) BUN 21 H (7-18) mg/dl Creatinine 0.97 (0.6-1.4) mg/dl Est Cr Clr Drug Dosing 53.3 ml/min Est GFR ( Amer) 80.5 Est GFR (Non-Af Amer) 69.4 BUN/Creatinine Ratio 22.1 H (10-20) Glucose 119 H (70-99) mg/dl POC Glucose (70-99) Estimat Average Glucose 151 mg/dl Hemoglobin A1c 6.9 H (4.5-5.6) % Calcium 8.7 (8.5-10.1) mg/dl Magnesium 1.9 (1.8-2.4) mg/dl Troponin I (0-0.045) ng/ml 07/12/19 07/12/19 07/12/19 Range/Units 23:56 20:08 19:49 WBC (4.8-10.8) K/uL RBC (4.7-6.1) M/uL Hgb (14.0-18.0) g/dL Hct (42-52) % MCV (80-100) fL MCH (25-34) pg MCHC (32-36) g/dL RDW Std Deviation (36.4-46.3) fL RDW Coeff of Ashley (11.5-14.5) % Plt Count (130-400) K/uL MPV (7.4-10.4) fL APTT (21.0-31.0) Seconds PTT Ratio Sodium (136-145) mmol/L Potassium (3.5-5.1) mmol/L Chloride (98-107) mmol/L Carbon Dioxide (21-32) mmol/L Anion Gap (3-11) BUN (7-18) mg/dl Creatinine (0.6-1.4) mg/dl Est Cr Clr Drug Dosing ml/min Est GFR ( Amer) Est GFR (Non-Af Amer) BUN/Creatinine Ratio (10-20) Glucose (70-99) mg/dl POC Glucose 140 H 146 H (70-99) Estimat Average Glucose mg/dl Hemoglobin A1c (4.5-5.6) % Calcium (8.5-10.1) mg/dl Magnesium (1.8-2.4) mg/dl Troponin I 0.062 H* (0-0.045) ng/ml 07/12/19 07/12/19 07/12/19 Range/Units 18:58 17:47 17:41 WBC (4.8-10.8) K/uL RBC (4.7-6.1) M/uL Hgb (14.0-18.0) g/dL Hct (42-52) % MCV (80-100) fL MCH (25-34) pg MCHC (32-36) g/dL RDW Std Deviation (36.4-46.3) fL RDW Coeff of Ashley (11.5-14.5) % Plt Count (130-400) K/uL MPV (7.4-10.4) fL APTT 57.2 H* (21.0-31.0) Seconds PTT Ratio 2.1 Sodium (136-145) mmol/L Potassium (3.5-5.1) mmol/L Chloride (98-107) mmol/L Carbon Dioxide (21-32) mmol/L Anion Gap (3-11) BUN (7-18) mg/dl Creatinine (0.6-1.4) mg/dl Est Cr Clr Drug Dosing ml/min Est GFR ( Amer) Est GFR (Non-Af Amer) BUN/Creatinine Ratio (10-20) Glucose (70-99) mg/dl POC Glucose 167 H 128 H (70-99) Estimat Average Glucose mg/dl Hemoglobin A1c (4.5-5.6) % Calcium (8.5-10.1) mg/dl Magnesium (1.8-2.4) mg/dl Troponin I (0-0.045) ng/ml Medications Administered Current Inpatient Medications Acetaminophen (Tylenol) 650 mg PO Q4H PRN PRN Reason: mild pain or fever Stop: 08/11/19 05:45 Last Admin: 07/13/19 09:48 Dose: 650 mg Documented by: Albuterol (Duoneb) 3 ml NEB Q6R [facility] Stop: 08/11/19 06:59 Last Admin: 07/13/19 13:45 Dose: 3 ml Documented by: Bumetanide (Bumex) 1 mg PO BID [facility] Stop: 08/12/19 09:59 Last Admin: 07/13/19 12:07 Dose: 1 mg Documented by: Dextrose (Dextrose 50%) 25 - 50 ml IV UD PRN; Protocol PRN Reason: Hypoglycemia Protocol Stop: 08/11/19 05:45 Diltiazem HCl (Cardizem) 90 mg PO QID [facility] Stop: 08/12/19 12:59 Last Admin: 07/13/19 14:21 Dose: Not Given Documented by: Ferrous Sulfate (Feosol) 325 mg PO Q2D@0900 [facility] Stop: 08/12/19 08:59 Last Admin: 07/13/19 08:05 Dose: 325 mg Documented by: Finasteride (Proscar) 5 mg PO DAILY [facility] Stop: 08/11/19 08:59 Last Admin: 07/13/19 08:05 Dose: 5 mg Documented by: Fluvastatin Sodium (Lescol) 80 mg PO HS [facility] Stop: 08/11/19 20:59 Last Admin: 07/12/19 21:06 Dose: Not Given Documented by: Glucagon (Glucagen) 1 mg SQ UD PRN; Protocol PRN Reason: Hypoglycemia Protocol Stop: 08/11/19 05:45 Glucose (Glucose 40%) 15 - 30 gm PO UD PRN; Protocol PRN Reason: Hypoglycemia Protocol Stop: 08/11/19 05:45 Glucose (Dex4 Glucose) 4 - 8 tabs PO UD PRN; Protocol PRN Reason: Hypoglycemia Protocol Stop: 08/11/19 05:45 Diltiazem HCl 125 mg/ Dextrose 125 mls @ 10 mls/hr IV .[id number] [facility]; Protocol Stop: 08/10/19 23:44 Last Titration: 07/13/19 09:55 Dose: Infused Documented by: Ceftriaxone Sodium 2,000 mg/ (Dextrose) 70 mls @ 100 mls/hr IV Q24H [facility]; Protocol Stop: 07/22/19 14:59 Last Admin: 07/13/19 15:33 Dose: 100 mls/hr Documented by: Furosemide 80 mg/ Syringe 8 mls @ 4 mls/min IV BID [facility] Stop: 08/11/19 14:29 Last Admin: 07/13/19 08:06 Dose: 4 mls/min Documented by: Insulin Aspart (Novolog Flexpen) 0 units SC ACHS [facility]; Protocol Stop: 08/11/19 07:29 Last Admin: 07/13/19 12:07 Dose: 5 units Documented by: Ioversol (Optiray 320 100ml) 100 ml IV ONCE PRN PRN Reason: Interaction Checking Stop: 07/16/19 02:24 Last Admin: 07/12/19 02:25 Dose: 93 ml Documented by: Magnesium Oxide (Mag-Ox) 400 mg PO BID [facility] Stop: 08/11/19 08:59 Last Admin: 07/13/19 08:04 Dose: 400 mg Documented by: Metoprolol Tartrate (Lopressor) 50 mg PO Q6 [facility] Stop: 08/11/19 14:29 Last Admin: 07/13/19 15:26 Dose: 50 mg Documented by: Miscellaneous (Carbohydrates For Hypoglycemia) 15 - 30 gm PO UD PRN PRN Reason: Hypoglycemia Treatment Stop: 08/11/19 05:45 Miscellaneous Information (Consult Glycemic Management Pharmacy) 1 ea N/A UD PRN PRN Reason: Consult Stop: 08/11/19 08:34 Morphine Sulfate (Morphine Sulfate) 2 mg IV Q4H PRN PRN Reason: Pain Stop: 07/26/19 15:45 Last Admin: 07/13/19 00:10 Dose: 2 mg Documented by: Ondansetron HCl (Zofran) 4 mg IV Q6H PRN PRN Reason: nausea or vomiting Stop: 08/11/19 05:45 Potassium Chloride (Klor-Con M20) 20 meq PO TID [facility] Stop: 08/11/19 08:59 Last Admin: 07/13/19 15:26 Dose: 20 meq Documented by: Rivaroxaban (Xarelto) 20 mg PO DAILY@1700 [facility] Stop: 08/12/19 16:39 Tamsulosin HCl (Flomax) 0.4 mg PO HS [facility] Stop: 08/11/19 20:59 Last Admin: 07/12/19 21:06 Dose: Not Given Documented by: PG Care Time/CCT Total # of Minutes Spent Total Time Spent with Patient: Total time spent is greater than 50% in coordination of care (as documented) at patient's floor/unit and/or counseling patient: Resident Activity Tracking Resident Involvement: Resident Care Provided Care Provided: Adult Hospital Medicine
[2019-07-13 08:01] LABS: Estimated Average Glucose 151 mg/dl; Hemoglobin A1C 6.9 % (4.5-5.6)
[2019-07-13] MEDS: MAGNESIUM OXIDE 400 MG TAB PO SCH ×2 (08:04→20:24)
[2019-07-13] MEDS: ASPIRIN 81 MG ECTAB PO SCH (08:05)
[2019-07-13] MEDS: FERROUS SULFATE 325 MG TAB PO SCH (08:05)
[2019-07-13] MEDS: FINASTERIDE 5 MG TAB PO SCH (08:05)
[2019-07-13] MEDS: POTASSIUM CHLORIDE 20 MEQ TABCR PO SCH ×5 (08:05→20:24)
[2019-07-13] MEDS: FUROSEMIDE 80 MG in SYRINGE 0 ML IV SCH (08:06)
--- NOTE | 2019-07-13 08:24 | Urology Progress Note ---
Date of Service July 13, 2019 Assessment & Plan (1) Urinary retention: (2) UTI (urinary tract infection): 89yo M with multiple comorbidities, with urinary retention, Proteus UTI, abnormality of bladder lining on CT. He has a long hx of BPH, on [facility] via [facility]. I added tamsulosin yesterday however has been on hold for respiratory distress. Will obtain PSA results from [facility] to assist in outpatient evaluation. We discussed CT results, and concern over abnormal bladder lining. Urine cytology still pending. Discussed need for outpatient TOV in 7-10days followed by cystoscopy to further evaluate suspected bladder abnormality after acute UTI resolves. To be arranged by our outpatient office. Thank you for allowing us to participate in the acute care of Mr. Fofana. Please reconsult us with additional questions, concerns or changes in patient status. Subjective Pt appears to be doing much better today, on NC during visit this AM so I was able to obtain more information from him. He has two brothers that with prostate cancer in their 70s, per patient he has had his PSA checked every 6 months at the [facility] which has always been good. Lopez draining clear yellow Does acknowledge some lower abdominal pain, describes as "dull achy". Not consistent with bladder spasms. Abd distention still notable. Review of Systems Review of Systems: All systems reviewed & are unremarkable except as noted in HPI & below Physical Exam Physical Exam: A&Ox3 RR shallow, NC intact Abd soft, distended Lopez draining clear yellow. Results & Data Vital Signs (Past 12 Hours) Vital Signs Temp Pulse Pulse Pulse Resp BP Pulse Ox 07/13/19 07:30 87 28 H 93 07/13/19 07:29 36.8 C 99 H 21 112/65 95 07/13/19 04:52 37.0 C 101 H 23 123/65 92 07/13/19 04:00 85 12 129/83 93 07/13/19 03:00 81 12 120/82 92 07/13/19 01:06 87 24 91 07/13/19 01:05 87 24 91 07/12/19 22:57 37.1 C 86 20 118/69 91 07/12/19 22:00 92 H 12 103/61 92 07/12/19 21:55 100 H 27 H 91 PG Care Time/CCT Total # of Minutes Spent Total Time Spent with Patient: Total time spent is greater than 50% in coordination of care (as documented) at patient's floor/unit and/or counseling patient:
[2019-07-13] MEDS ORDERED: ROSUVASTATIN CALCIUM 20 MG TAB PO SCH (09:00)
[2019-07-13] MEDS: ACETAMINOPHEN 325 MG TAB PO PRN (09:48)
--- NOTE | 2019-07-13 10:33 | Cardiology Progress Note ---
Date of Service July 13, 2019 Assessment & Plan (1) Atrial fibrillation with RVR: Not overtly symptomatic. Overall rate control appears to be adequate although he has not ambulated. I would continue titration of his beta-reva for rate control rather than add calcium channel blockers in the setting of his cardiomyopathy. He is currently on heparin, but if there are no planned procedures I think transitioning to him to Xarelto 20 milligrams daily would be reasonable. His aspirin could be stopped at that time. 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 He has some atypical symptoms of arm discomfort currently. He has some very mildly elevated biomarkers which are not suggestive of an acute coronary syndrome. He has been maintained as an outpatient on aspirin, fluvastatin and metoprolol. Given his reduced LV systolic function we may need to perform coronary angiography at some point. (3) Elevated troponin: Very low level elevations. More reflective of his congestive heart failure than acute coronary syndrome. (4) Cardiomyopathy: He seems to be diuresing well. Once his blood pressures are stable on an adequate dose of rate control agents we could consider adding Jose Armando inhibition. (5) Acute systolic congestive heart failure: He diuresed very well yesterday with a higher dose of Lasix. He was switched oral Bumex today. Will continue to monitor his output, renal function electrolytes. I will be away from the hospital for the next 2 days. Third additional questions regarding this patient's care please contact the on-call binder fixer. Thank you Subjective History the patient claims to be feeling better. He continues to have some lower abdominal discomfort that he associates with his Lopez catheter. He took Tylenol currently and is feeling somewhat better. He states that his breathing is better without the CPAP. He is comfortable lying flat in bed. He has not ambulated yet this morning. Review of Systems Review of Systems: Per HPI Physical Exam Physical Exam: The patient is alert and oriented. Mood and affect appeared normal. He answered all questions appropriately. HEENT: Pupils are equal and reactive to light and accommodation. Extraocular movements are intact. The sclerae are anicteric. Neuro: Cranial nerves intact Neck: Patient's neck is supple. He has palpable carotid pulses bilaterally without bruits on auscultation. There is no evidence of jugular venous dist ention. The thyroid is not enlarged. Lungs: Clear to auscultation bilaterally. He has good air movement without use of accessory muscles. Occasional crackles at the bases bilaterally. Cardiac: Heart demonstrates an irregular rate and rhythm. Normal S1 and S2. No murmurs on examination. Pulses: The patient has palpable radial pulses bilaterally that are equal in intensity Extremities: There was no evidence of hypoperfusion. There is no cyanosis or clubbing. Mild lower extremity edema. Skin: I did not appreciate any rashes on examination today. Results & Data Vital Signs (Past 12 Hours) Vital Signs Temp Pulse Pulse Pulse Resp BP Pulse Ox 07/13/19 07:30 87 28 H 93 07/13/19 07:29 36.8 C 99 H 21 112/65 95 07/13/19 04:52 37.0 C 101 H 23 123/65 92 07/13/19 04:00 85 12 129/83 93 07/13/19 03:00 81 12 120/82 92 07/13/19 01:06 87 24 91 07/13/19 01:05 87 24 91 07/12/19 22:57 37.1 C 86 20 118/69 91 Laboratory Results Abnormal Lab Results 07/12/19 07/12/19 07/12/19 09:59 11:22 11:53 WBC RBC Hgb Hct MCV MCH MCHC RDW Std Deviation RDW Coeff of Ashley Plt Count MPV APTT PTT Ratio Sodium 135 L Potassium 4.8 Chloride 97 L Carbon Dioxide 31 Anion Gap 7.0 BUN 28 H Creatinine 1.01 Est Cr Clr Drug Dosing 52.2 Est GFR ( Amer) 76.6 Est GFR (Non-Af Amer) 66.1 BUN/Creatinine Ratio 27.7 H Glucose 180 H POC Glucose 148 H Estimat Average Glucose Hemoglobin A1c Calcium 9.7 Magnesium Troponin I 0.066 H* 07/12/19 07/12/19 07/12/19 17:41 17:47 18:58 WBC RBC Hgb Hct MCV MCH MCHC RDW Std Deviation RDW Coeff of Ashley Plt Count MPV APTT 57.2 H* PTT Ratio 2.1 Sodium Potassium Chloride Carbon Dioxide Anion Gap BUN Creatinine Est Cr Clr Drug Dosing Est GFR ( Amer) Est GFR (Non-Af Amer) BUN/Creatinine Ratio Glucose POC Glucose 128 H 167 H Estimat Average Glucose Hemoglobin A1c Calcium Magnesium Troponin I 07/12/19 07/12/19 07/12/19 19:49 20:08 23:56 WBC RBC Hgb Hct MCV MCH MCHC RDW Std Deviation RDW Coeff of Ashley Plt Count MPV APTT PTT Ratio Sodium Potassium Chloride Carbon Dioxide Anion Gap BUN Creatinine Est Cr Clr Drug Dosing Est GFR ( Amer) Est GFR (Non-Af Amer) BUN/Creatinine Ratio Glucose POC Glucose 146 H 140 H Estimat Average Glucose Hemoglobin A1c Calcium Magnesium Troponin I 0.062 H* 07/13/19 07/13/19 07/13/19 06:42 06:42 06:42 WBC 10.48 RBC 4.12 L Hgb 12.8 L Hct 39.4 L MCV 95.6 MCH 31.1 MCHC 32.5 RDW Std Deviation 48.2 H RDW Coeff of Ashley 13.8 Plt Count 221 MPV 9.8 APTT PTT Ratio Sodium 139 Potassium 3.6 D Chloride 96 L Carbon Dioxide 37 H Anion Gap 6.0 BUN 21 H Creatinine 0.97 Est Cr Clr Drug Dosing 53.3 Est GFR ( Amer) 80.5 Est GFR (Non-Af Amer) 69.4 BUN/Creatinine Ratio 22.1 H Glucose 119 H POC Glucose Estimat Average Glucose 151 Hemoglobin A1c 6.9 H Calcium 8.7 Magnesium 1.9 Troponin I 07/13/19 07/13/19 06:42 07:30 WBC RBC Hgb Hct MCV MCH MCHC RDW Std Deviation RDW Coeff of Ashley Plt Count MPV APTT 49.5 H* PTT Ratio 1.8 Sodium Potassium Chloride Carbon Dioxide Anion Gap BUN Creatinine Est Cr Clr Drug Dosing Est GFR ( Amer) Est GFR (Non-Af Amer) BUN/Creatinine Ratio Glucose POC Glucose 115 H Estimat Average Glucose Hemoglobin A1c Calcium Magnesium Troponin I PG Care Time/CCT Total # of Minutes Spent Total Time Spent with Patient: Total time spent is greater than 50% in coordination of care (as documented) at patient's floor/unit and/or counseling patient:
[2019-07-13] MEDS: BUMETANIDE 1 MG TAB PO SCH ×2 (12:07→20:22)
[2019-07-13] MEDS: INSULIN ASPART 100 UNITS/ML 3 ML PEN SC SCH ×4 (12:07→20:54)
[2019-07-13] MEDS ORDERED: dilTIAZem HCL 30 MG TAB PO SCH (13:00)
[2019-07-13] MEDS ORDERED: FUROSEMIDE 40 MG in SYRINGE 0 ML IV ONE (15:00)
[2019-07-13] MEDS: cefTRIAXone SODIUM 2,000 MG in DEXTROSE 5% 50 ML IV SCH (15:33)
[2019-07-13] MEDS: RIVAROXABAN 20 MG TAB PO SCH (17:47)
[2019-07-13] MEDS: TAMSULOSIN HCL 0.4 MG CAP PO SCH (20:23)
[2019-07-13] MEDS: FLUVASTATIN SODIUM 20 MG CAP PO SCH ×2 (20:29→20:53)
[2019-07-14] MEDS: METOPROLOL TARTRATE 50 MG TAB PO SCH ×4 (00:48→18:07)
[2019-07-14] MEDS: ALBUT/IPRATROP 3MG/0.5MG NEB 3 ML VIAL NEB SCH ×4 (01:08→19:59)
[2019-07-14 06:01] LABS: Basophils # (auto) 0.01 K/uL (0-0.2); Basophils % (auto) 0.1 %; Eosinophils # (auto) 0.09 K/uL (0-0.5); Eosinophils % (auto) 1.2 %; Hematocrit (blood only) 39.8 % (42-52); Hemoglobin 12.6 g/dL (14.0-18.0); Immature Granulocytes # (auto) 0.01 K/uL (0.00-0.02); Immature Granulocytes % (auto) 0.1 %; Lymphocytes # (auto) 1.32 K/uL (1.2-3.4); Lymphocytes % (auto) 17.2 %; Mean Corpuscular Hemoglobin 30.7 pg (25-34); Mean Corpuscular Hgb Conc 31.7 g/dL (32-36); Mean Corpuscular Volume 96.8 fL (80-100); Mean Platelet Volume 10.1 fL (7.4-10.4); Monocytes # (auto) 1.07 K/uL (0.11-0.59); Monocytes % (auto) 13.9 %; Neutrophils # (auto) 5.18 K/uL (1.4-6.5); Neutrophils % (auto) 67.5 %; Platelet Count 218 K/uL (130-400); RDW Standard Deviation 49.4 fL (36.4-46.3); Red Blood Count 4.11 M/uL (4.7-6.1); White Blood Count 7.68 K/uL (4.8-10.8)
[2019-07-14 06:34] LABS: BUN Creatinine Ratio 23.2 (10-20); Calcium 8.4 mg/dl (8.5-10.1); Creatinine Clr Calc Pharmacy 47.5 ml/min; Est GFR (African American) 69.9; Est GFR (Non-African American) 60.3; Potassium 3.6 mmol/L (3.5-5.1)
[2019-07-14] MEDS: MAGNESIUM OXIDE 400 MG TAB PO SCH ×2 (08:01→21:02)
[2019-07-14] MEDS: FINASTERIDE 5 MG TAB PO SCH (08:01)
[2019-07-14] MEDS: BUMETANIDE 1 MG TAB PO SCH ×2 (08:01→21:10)
[2019-07-14] MEDS: INSULIN ASPART 100 UNITS/ML 3 ML PEN SC SCH ×4 (08:02→21:33)
[2019-07-14] MEDS: POTASSIUM CHLORIDE 20 MEQ TABCR PO SCH ×3 (09:45→21:57)
[2019-07-14] MEDS: ACETAMINOPHEN 325 MG TAB PO PRN (13:02)
[2019-07-14] MEDS ORDERED: DIGOXIN 250 MCG in SYRINGE 9 ML IV ONE (14:00)
[2019-07-14] MEDS: MoRPHine SULFATE 2 MG/ML CARP IV PRN ×2 (14:22→21:01)
[2019-07-14] MEDS ORDERED: OXYBUTYNIN CHLORIDE 5 MG TAB PO STA (14:32)
[2019-07-14] MEDS ORDERED: LIDOCAINE 2% JELLY 5 ML TUBE ONE (14:47)
--- NOTE | 2019-07-14 15:34 | Family Medicine Progress Note ---
Date of Service July 14, 2019 Assessment & Plan (1) Atrial fibrillation with RVR: 89yo M PMH CHF, CAD, HLD, T2DM admitted with CHF exacerbation with acute hypoxic respiratory failure and new afib. Atrial fibrillation with RVR -Patient was started on a heparin drip and a Cardizem drip on admission. -Cardizem gtt dc'd and heparin gtt converted to xarelto on 07/13. -Cardiology consulted, appreciate recs -Continue aggressive diuresis, trial of Bumex. -Recommend optimizing beta-reva for rate control as opposed to CCB 2/2 EF of 35% -Initiated 250mcg digoxin due to elevated heart rates on 07/14/19 Acute on chronic CHF exacerbation -Patient takes 80 mg of Lasix daily as an outpatient. -Dry weight goal 87 kg -93.8->90.0->90.4--will monitor, has had acceptable diuresis from I&O measurements -Continue bumex -Strict I/O's -Once BP is stable and rate control achieved consider adding MANUEL -Echo, as above: Moderate global hypokinesis, Left and right atrium mildly dilated Acute respiratory failure with hypoxia likely 2/2 CHF exacerbation and afib RVR -Wean O2 as tolerated -Management as above -Duonebs prn Abdominal distention -Abdominal CT on admission: congestive failure/fluid overload, prostamegaly, bladder wall thickening and infiltration of adjacent fat, cannot exclude cystitis cannot exclude malignancy. -Suspect abdominal discomfort and distention secondary to fluid overloaded status, improving with diuresis -Morphine 2 mg q4h prn Bladder wall thickening -Suspicious for malignancy versus cystitis -Consulted uro, appreciate recs -Long-standing bladder outlet obstruction, maintain Lopez for 5 to 7 days -Proscar while inpatient, add tamsulosin -Preliminary urinary cultures are positive for gram-negative bacilli started on ceftriaxone on 07/12 -Urine cytology followed by outpatient cystoscopy Elevated troponin: -Likely secondary to demand ischemia trending troponins. Have stabilized. -Consider coronary angiography, deferred to outpatient Type II diabetes mellitus -Heart healthy and diabetic diet -Hold Metformin -glycemic consult placed Hyperlipidemia: -Continue Fluvastatin CAD (coronary artery disease) -Remote h/o CABG -Continue Metoprolol and aspirin -Consider outpt coronary angio FENa:DMII Code Status:DNR/DNI DVT PPX: Heparin PT/OT: as pt improves Dispo:PCU Supervising Physician Co-Signing Physician Notes Attending attestation Pt seen and examined in concert with Dr. Goodson. In agreement with the documented findings as noted in the resident documentation with any exceptions or additions as noted here. Stable/improved shortness of breath, tolerating laying more flat in bed today. On examination, S1/S2 nl IRR/IRR w/ elevated HR. Decreased breath sounds b/l bases with improved air movement. NT/ND BS +ve. B/L LE edema 1-2+ to the knees. Atrial fibrillation with RVR and pulmonary edema w/ HFrEF - elevated rate despite metoprolol 75mg q6h. Add digoxin and monitor rate today. Tolerating rivaroxaban. Continue bumex 1mg BID and monitor I/O/weight. Bacturia - proteus on culture - continue cetriaxone (day 3) Abnormal bladder on CT - urology consultation appreciated, following for outpatient mgmt Else see resident documentation as noted. Subjective Pt reports he is feeling overall better this am. Notes that he continues to have a lot of lower abdominal pain and pressure. Notes his breathing is improved. Denies chest pain, palpitations, lightheadedness. Review of Systems Review of Systems: All systems reviewed & are unremarkable except as noted in HPI & below Gastrointestinal: + abdominal pain (lower abdo/suprapubic) Physical Exam Physical Exam: General: Elderly gentleman, resting comfortably HEENT: Normocephalic atraumatic Neck: Normal visual inspection Cardiac: Irregularly irregular rhythm, no significant murmurs, rubs, gallops, 1- 2+ pedal edema to shins, no calf tenderness Respiratory: Rales present in dependent lung martinez, No significant wheezes or rhonchi GI: Protuberant abdomen with distention, +suprapubic tenderness, bowel sounds present although. MSK: Moves all extremities Neuro: Alert and oriented x4, mentating well Psych: Calm, cooperative Results & Data Vital Signs (Past 12 Hours) Vital Signs Temp Pulse Pulse Pulse Resp BP Pulse Ox 07/14/19 14:23 139 H 07/14/19 13:27 64 20 95 07/14/19 11:57 97.9 F 102 H 18 117/71 96 07/14/19 08:17 98.2 F 116 H 16 120/72 91 07/14/19 07:13 114 H 18 95 07/14/19 04:29 97.5 F L 72 21 97/56 L 95 07/14/19 04:00 93 H 24 105/54 L 94 Laboratory Results 07/14/19 07/14/19 07/14/19 Range/Units 11:40 07:37 05:41 WBC (4.8-10.8) K/uL RBC (4.7-6.1) M/uL Hgb (14.0-18.0) g/dL Hct (42-52) % MCV (80-100) fL MCH (25-34) pg MCHC (32-36) g/dL RDW Std Deviation (36.4-46.3) fL RDW Coeff of Ashley (11.5-14.5) % Plt Count (130-400) K/uL MPV (7.4-10.4) fL Immature Gran % (Auto) % Neut % (Auto) % Lymph % (Auto) % Mcculloch % (Auto) % Eos % (Auto) % Baso % (Auto) % Immature Gran # (Auto) (0.00-0.02) K/uL Neut # (Auto) (1.4-6.5) K/uL Lymph # (Auto) (1.2-3.4) K/uL Mcculloch # (Auto) (0.11-0.59) K/uL Eos # (Auto) (0-0.5) K/uL Baso # (Auto) (0-0.2) K/uL Sodium 138 (136-145) mmol/L Potassium 3.6 (3.5-5.1) mmol/L Chloride 95 L (98-107) mmol/L Carbon Dioxide 37 H (21-32) mmol/L Anion Gap 6.0 (3-11) BUN 25 H (7-18) mg/dl Creatinine 1.09 (0.6-1.4) mg/dl Est Cr Clr Drug Dosing 47.5 ml/min Est GFR ( Amer) 69.9 Est GFR (Non-Af Amer) 60.3 BUN/Creatinine Ratio 23.2 H (10-20) Glucose 181 H (70-99) mg/dl POC Glucose 147 H 131 H (70-99) Calcium 8.4 L (8.5-10.1) mg/dl 07/14/19 07/13/19 07/13/19 Range/Units 05:41 20:33 16:28 WBC 7.68 (4.8-10.8) K/uL RBC 4.11 L (4.7-6.1) M/uL Hgb 12.6 L (14.0-18.0) g/dL Hct 39.8 L (42-52) % MCV 96.8 (80-100) fL MCH 30.7 (25-34) pg MCHC 31.7 L (32-36) g/dL RDW Std Deviation 49.4 H (36.4-46.3) fL RDW Coeff of Ashley 14.0 (11.5-14.5) % Plt Count 218 (130-400) K/uL MPV 10.1 (7.4-10.4) fL Immature Gran % (Auto) 0.1 % Neut % (Auto) 67.5 % Lymph % (Auto) 17.2 % Mcculloch % (Auto) 13.9 % Eos % (Auto) 1.2 % Baso % (Auto) 0.1 % Immature Gran # (Auto) 0.01 (0.00-0.02) K/uL Neut # (Auto) 5.18 (1.4-6.5) K/uL Lymph # (Auto) 1.32 (1.2-3.4) K/uL Mcculloch # (Auto) 1.07 H (0.11-0.59) K/uL Eos # (Auto) 0.09 (0-0.5) K/uL Baso # (Auto) 0.01 (0-0.2) K/uL Sodium (136-145) mmol/L Potassium (3.5-5.1) mmol/L Chloride (98-107) mmol/L Carbon Dioxide (21-32) mmol/L Anion Gap (3-11) BUN (7-18) mg/dl Creatinine (0.6-1.4) mg/dl Est Cr Clr Drug Dosing ml/min Est GFR ( Amer) Est GFR (Non-Af Amer) BUN/Creatinine Ratio (10-20) Glucose (70-99) mg/dl POC Glucose 115 H 118 H (70-99) Calcium (8.5-10.1) mg/dl Medications Administered Current Inpatient Medications Acetaminophen (Tylenol) 650 mg PO Q4H PRN PRN Reason: mild pain or fever Stop: 08/11/19 05:45 Last Admin: 07/14/19 13:02 Dose: 650 mg Documented by: Albuterol (Duoneb) 3 ml NEB Q6R COUNT [facility]CLUDES [facility] Stop: 08/11/19 06:59 Last Admin: 07/14/19 13:27 Dose: 3 ml Documented by: Bumetanide (Bumex) 1 mg PO BID COUNT INCLUDES [facility] Stop: 08/12/19 09:59 Last Admin: 07/14/19 08:01 Dose: 1 mg Documented by: Dextrose (Dextrose 50%) 25 - 50 ml IV UD PRN; Protocol PRN Reason: Hypoglycemia Protocol Stop: 08/11/19 05:45 Diltiazem HCl (Cardizem) 90 mg PO QID COUNT [facility]CLUDES [facility] Stop: 08/12/19 12:59 Last Admin: 07/13/19 14:21 Dose: Not Given Documented by: Ferrous Sulfate (Feosol) 325 mg PO Q2D@0900 [facility]CLUDES [facility] Stop: 08/12/19 08:59 Last Admin: 07/13/19 08:05 Dose: 325 mg Documented by: Finasteride (Proscar) 5 mg PO DAILY COUNT INCLUDES [facility] Stop: 08/11/19 08:59 Last Admin: 07/14/19 08:01 Dose: 5 mg Documented by: Fluvastatin Sodium (Lescol) 80 mg PO HS COUNT INCLUDES [facility] Stop: 08/11/19 20:59 Last Admin: 07/13/19 20:53 Dose: 80 mg Documented by: Glucagon (Glucagen) 1 mg SQ UD PRN; Protocol PRN Reason: Hypoglycemia Protocol Stop: 08/11/19 05:45 Glucose (Glucose 40%) 15 - 30 gm PO UD PRN; Protocol PRN Reason: Hypoglycemia Protocol Stop: 08/11/19 05:45 Glucose (Dex4 Glucose) 4 - 8 tabs PO UD PRN; Protocol PRN Reason: Hypoglycemia Protocol Stop: 08/11/19 05:45 Diltiazem HCl 125 mg/ Dextrose 125 mls @ 10 mls/hr IV .[id number] COUNT [facility]CLUDES THE [facility]; Protocol Stop: 08/10/19 23:44 Last Titration: 07/13/19 09:55 Dose: Infused Documented by: Ceftriaxone Sodium 2,000 mg/ (Dextrose) 70 mls @ 100 mls/hr IV Q24H COUNT [facility]CLUDES [facility]; Protocol Stop: 07/22/19 14:59 Last Infusion: 07/13/19 16:15 Dose: Infused Documented by: Furosemide 80 mg/ Syringe 8 mls @ 4 mls/min IV BID COUNT INCLUDES [facility] Stop: 08/11/19 14:29 Last Admin: 07/13/19 08:06 Dose: 4 mls/min Documented by: Insulin Aspart (Novolog Flexpen) 0 units SC ACHS COUNT INCLUDES [facility]; Protocol Stop: 08/11/19 07:29 Last Admin: 07/14/19 13:00 Dose: 7 units Documented by: Ioversol (Optiray 320 100ml) 100 ml IV ONCE PRN PRN Reason: Interaction Checking Stop: 07/16/19 02:24 Last Admin: 07/12/19 02:25 Dose: 93 ml Documented by: Magnesium Oxide (Mag-Ox) 400 mg PO BID COUNT [facility]CLUDES [facility] Stop: 08/11/19 08:59 Last Admin: 07/14/19 08:01 Dose: 400 mg Documented by: Metoprolol Tartrate (Lopressor) 75 mg PO Q6 COUNT [facility]CLUDES [facility] Stop: 08/12/19 17:59 Last Admin: 07/14/19 12:59 Dose: 75 mg Documented by: Miscellaneous (Carbohydrates For Hypoglycemia) 15 - 30 gm PO UD PRN PRN Reason: Hypoglycemia Treatment Stop: 08/11/19 05:45 Miscellaneous Information (Consult Glycemic Management Pharmacy) 1 ea N/A UD PRN PRN Reason: Consult Stop: 08/11/19 08:34 Morphine Sulfate (Morphine Sulfate) 2 mg IV Q4H PRN PRN Reason: Pain Stop: 07/26/19 15:45 Last Admin: 07/14/19 14:22 Dose: 2 mg Documented by: Ondansetron HCl (Zofran) 4 mg IV Q6H PRN PRN Reason: nausea or vomiting Stop: 08/11/19 05:45 Potassium Chloride (Klor-Con M20) 20 meq PO TID COUNT INCLUDES THE [facility] Stop: 08/11/19 08:59 Last Admin: 07/14/19 09:45 Dose: 20 meq Documented by: Rivaroxaban (Xarelto) 20 mg PO DAILY@1700 COUNT [facility]CLUDES [facility] Stop: 08/12/19 16:39 Last Admin: 07/13/19 17:47 Dose: 20 mg Documented by: Tamsulosin HCl (Flomax) 0.4 mg PO HS [facility] Stop: 08/11/19 20:59 Last Admin: 07/13/19 20:23 Dose: 0.4 mg Documented by: PG Care Time/CCT Total # of Minutes Spent Total Time Spent with Patient: Total time spent is greater than 50% in coordination of care (as documented) at patient's floor/unit and/or counseling patient: Resident Activity Tracking Resident Involvement: Resident Care Provided Care Provided: Adult Hospital Medicine
[2019-07-14] MEDS: cefTRIAXone SODIUM 2,000 MG in DEXTROSE 5% 50 ML IV SCH (16:30)
[2019-07-14] MEDS: RIVAROXABAN 20 MG TAB PO SCH (16:31)
[2019-07-14] MEDS ORDERED: DIGOXIN 250 MCG in SYRINGE 9 ML IV STA (19:26)
[2019-07-14] MEDS: FLUVASTATIN SODIUM 20 MG CAP PO SCH (21:10)
[2019-07-14] MEDS: TAMSULOSIN HCL 0.4 MG CAP PO SCH (21:10)
[2019-07-14] MEDS ORDERED: LIDOCAINE 2% JELLY 5 ML TUBE EXT PRN (21:53)
[2019-07-15] MEDS: METOPROLOL TARTRATE 50 MG TAB PO SCH ×4 (00:12→17:43)
[2019-07-15] MEDS: ALBUT/IPRATROP 3MG/0.5MG NEB 3 ML VIAL NEB SCH ×4 (01:07→18:55)
[2019-07-15 06:03] LABS: BUN Creatinine Ratio 29.6 (10-20); Calcium 8.7 mg/dl (8.5-10.1); Creatinine Clr Calc Pharmacy 50.9 ml/min; Est GFR (African American) 75.7; Est GFR (Non-African American) 65.3; Magnesium 2.2 mg/dl (1.8-2.4); Potassium 3.9 mmol/L (3.5-5.1)
[2019-07-15] MEDS ORDERED: DIGOXIN 250 MCG in SYRINGE 9 ML IV STA ×2 (06:44→13:53)
[2019-07-15] MEDS: FINASTERIDE 5 MG TAB PO SCH (08:20)
[2019-07-15] MEDS: FERROUS SULFATE 325 MG TAB PO SCH (08:20)
[2019-07-15] MEDS: POTASSIUM CHLORIDE 20 MEQ TABCR PO SCH ×3 (08:21→21:24)
[2019-07-15] MEDS: BUMETANIDE 1 MG TAB PO SCH ×2 (08:21→21:26)
[2019-07-15] MEDS: MAGNESIUM OXIDE 400 MG TAB PO SCH ×2 (08:21→21:24)
[2019-07-15] MEDS: INSULIN ASPART 100 UNITS/ML 3 ML PEN SC SCH ×4 (08:22→21:44)
--- NOTE | 2019-07-15 13:44 | Cardiology Progress Note ---
Date of Service July 15, 2019 Assessment & Plan (1) Atrial fibrillation with RVR: The patient denies symptoms at this time. Would finished the intravenous load of digoxin with an additional 0.25 mg later today if his ventricular response remains elevated. He is on a substantial dose of metoprolol tartrate. Continue Xarelto 20 mg daily. (2) CAD (coronary artery disease): The patient has a remote history of CABG. Would continue medical manage ment with metoprolol, aspirin, and fluvastatin. (3) Elevated troponin: Minimal elevation likely related to decompensated CHF rather than an acute coronary syndrome. (4) Cardiomyopathy: Continues to diurese on Lasix 80 mg IV twice daily. (5) Acute systolic congestive heart failure: Continues to diurese well. Seems to be approaching euvolemia. Subjective The patient is resting comfortably in the bedside chair without complaints of chest pain, dyspnea, or palpitations. Physical Exam Physical Exam: In general is well-developed well-nourished white male in no acute distress. HEENT exam is negative. Neck is supple with full carotid upstrokes. No obvious bruits. Jugular is pressure is flat at 90 degrees. No thyromegaly. Cardiovascular exam was irregular regular rhythm with distant heart sounds. No obvious murmurs. Lungs are clear without rales, rhonchi or wheezes. Abdomen is soft without bruits. Extremities show no edema. Results & Data Vital Signs (Past 12 Hours) Vital Signs Temp Pulse Resp BP Pulse Ox 07/15/19 12:44 60 18 92 07/15/19 11:25 36.5 C 89 21 149/62 H 92 07/15/19 07:32 36.7 C 110 H 21 113/72 92 07/15/19 06:57 77 18 90 07/15/19 03:04 36.4 C L 105 H 20 118/74 97 Diagnostic Findings Time to monitor notes atrial fibrillation with a ventricular response of 95-110 beats per minute. PG Care Time/CCT Total # of Minutes Spent Total Time Spent with Patient: Total time spent is greater than 50% in coordination of care (as documented) at patient's floor/unit and/or counseling patient:
[2019-07-15] MEDS: cefTRIAXone SODIUM 2,000 MG in DEXTROSE 5% 50 ML IV SCH (14:36)
--- NOTE | 2019-07-15 15:42 | Family Medicine Progress Note ---
Date of Service July 15, 2019 Assessment & Plan (1) Atrial fibrillation with RVR: 89yo M PMH CHF, CAD, HLD, T2DM admitted on 07/12/19 with CHF exacerbation with acute hypoxic respiratory failure and new afib. Atrial fibrillation with RVR -Patient was started on a heparin drip and a Cardizem drip on admission. -Cardizem gtt dc'd and heparin gtt converted to xarelto on 07/13. -Cardiology consulted, appreciate recs -Continue diuresis with Bumex. -Recommend optimizing beta-reva for rate control as opposed to CCB 2/2 EF of 35% -Initiated 250mcg digoxin due to elevated heart rates on 07/14/19. Has received full 1mg IV loading dosing; will likely need to convert to PO dosing on 07/16. -Continue 75mg metoprolol tartrate q6h Acute on chronic CHF exacerbation -Patient takes 80 mg of Lasix daily as an outpatient. -Dry weight goal 87 kg -93.8->90.0->90.4--will monitor, has had acceptable diuresis from I&O measurements -Continue bumex -Strict I/O's -Once BP is stable and rate control achieved consider adding MANUEL -Echo, as above: Moderate global hypokinesis, Left and right atrium mildly dilated Acute respiratory failure with hypoxia likely 2/2 CHF exacerbation and afib RVR -Wean O2 as tolerated -Management as above -Duonebs prn Abdominal distention -Abdominal CT on admission: congestive failure/fluid overload, prostamegaly, bladder wall thickening and infiltration of adjacent fat, cannot exclude cystitis cannot exclude malignancy. -Suspect abdominal discomfort and distention secondary to fluid overloaded status, improving with diuresis -Morphine 2 mg q4h prn Bladder wall thickening -Suspicious for malignancy versus cystitis -Consulted uro, appreciate recs -Long-standing bladder outlet obstruction, maintain Deshpande for 5 to 7 days -Proscar while inpatient, add tamsulosin -Preliminary urinary cultures are positive for gram-negative bacilli started on ceftriaxone on 07/12 -Urine cytology followed by outpatient cystoscopy Elevated troponin: -Likely secondary to demand ischemia trending troponins. Have stabilized. -Consider coronary angiography, deferred to outpatient Type II diabetes mellitus -Heart healthy and diabetic diet -Hold Metformin -glycemic consult placed Hyperlipidemia: -Continue Fluvastatin CAD (coronary artery disease) -Remote h/o CABG -Continue Metoprolol and aspirin -Consider outpt coronary angio FENa:DMII Code Status:DNR/DNI DVT PPX: Xarelto PT/OT: as pt improves Dispo:PCU Supervising Physician Co-Signing Physician Notes Attending attestation Pt seen and examined in concert with Dr. Goodson. In agreement with the documented findings as noted in the resident documentation with any exceptions or additions as noted here. Continued gradual improvement of shortness of breath, much better positionally with sitting up. Tolerating diuresis with deshpande in well. Concerned about deshpande removal as had straight caths/deshpande prior to admit for retention. On examination, S1/S2 nl IRR/IRR w/ improved but elevated HR. Improving air movement with decreased bases. Abd NT/ND BS+ve Atrial fibrillation with RVR and pulmonary edema w/ HFrEF - improvement in HR with addition of digoxin loading. Continue daily digoxin, metoprolol. Diuresing with Bumex (-1.5 L/day). Rivaroxaban for AC Bacturia - proteus on culture - continue cetriaxone (day 4) Abnormal bladder on CT - urology consultation appreciated, following for outpatient mgmt. Would recommend discussion re: retaining deshpande catheter considering complaints prior to admission. Else see resident documentation as noted. Subjective Patient reports he feels better this am. States that after repositioning deshpande his bladder pain has greatly improved. Eager for discharge as he would like to visit his . Breathing while laying flat is improving. Review of Systems Review of Systems: All systems reviewed & are unremarkable except as noted in HPI & below 10 systems reviewed and negative Physical Exam Constitutional: no acute distress and not ill appearing Eyes: no nystagmus ENMT: Ears: no hearing impairment Respiratory: no respiratory distress and no cough Auscultation: + crackles (faint bibasilar) Cardiovascular: Rate/Rhythm: + tachycardic and + irregularly irregular Vessels: no JVD Extremities: + edema (1-2+ to shins) Chest (Breasts): Chest: normal inspection of chest Gastrointestinal (Abdomen): Inspection/Auscultation: + abdomen distended; no abdominal edema Percussion/Palpation: abdomen soft; abdomen nontender Musculoskeletal: Head/Neck/Chest: normocephalic and head atraumatic Skin: no rashes, warm and dry Neurologic: awake; not confused and not obtunded Psychiatric: Orientation: alert and oriented x 3 Eye Contact: good eye contact Affect: no depressed affect Genitourinary: no CVA tenderness Lymphatic: no lymphadenopathy Results & Data Vital Signs (Past 12 Hours) Vital Signs Temp Pulse Pulse Resp BP Pulse Ox 07/15/19 15:16 97.5 F L 79 22 117/69 92 07/15/19 12:44 60 18 92 07/15/19 11:25 97.7 F 89 21 149/62 H 92 07/15/19 07:32 98.1 F 110 H 21 113/72 92 07/15/19 06:57 77 18 90 Laboratory Results 07/15/19 07/15/19 07/15/19 Range/Units 11:22 07:33 05:21 Sodium 139 (136-145) mmol/L Potassium 3.9 (3.5-5.1) mmol/L Chloride 96 L (98-107) mmol/L Carbon Dioxide 39 H (21-32) mmol/L Anion Gap 4.0 (3-11) BUN 30 H (7-18) mg/dl Creatinine 1.02 (0.6-1.4) mg/dl Est Cr Clr Drug Dosing 50.9 ml/min Est GFR ( Amer) 75.7 Est GFR (Non-Af Amer) 65.3 BUN/Creatinine Ratio 29.6 H (10-20) Glucose 107 H (70-99) mg/dl POC Glucose 168 H 109 H (70-99) Calcium 8.7 (8.5-10.1) mg/dl Magnesium 2.2 (1.8-2.4) mg/dl 07/14/19 07/14/19 Range/Units 20:24 16:22 Sodium (136-145) mmol/L Potassium (3.5-5.1) mmol/L Chloride (98-107) mmol/L Carbon Dioxide (21-32) mmol/L Anion Gap (3-11) BUN (7-18) mg/dl Creatinine (0.6-1.4) mg/dl Est Cr Clr Drug Dosing ml/min Est GFR ( Amer) Est GFR (Non-Af Amer) BUN/Creatinine Ratio (10-20) Glucose (70-99) mg/dl POC Glucose 152 H 126 H (70-99) Calcium (8.5-10.1) mg/dl Magnesium (1.8-2.4) mg/dl Medications Administered Current Inpatient Medications Acetaminophen (Tylenol) 650 mg PO Q4H PRN PRN Reason: mild pain or fever Stop: 08/11/19 05:45 Last Admin: 07/15/19 15:48 Dose: 650 mg Documented by: Albuterol (Duoneb) 3 ml NEB Q6R [facility] Stop: 08/11/19 06:59 Last Admin: 07/15/19 12:44 Dose: 3 ml Documented by: Bumetanide (Bumex) 1 mg PO BID [facility] Stop: 08/12/19 09:59 Last Admin: 07/15/19 08:21 Dose: 1 mg Documented by: Dextrose (Dextrose 50%) 25 - 50 ml IV UD PRN; Protocol PRN Reason: Hypoglycemia Protocol Stop: 08/11/19 05:45 Diltiazem HCl (Cardizem) 90 mg PO QID [facility] Stop: 08/12/19 12:59 Last Admin: 07/13/19 14:21 Dose: Not Given Documented by: Ferrous Sulfate (Feosol) 325 mg PO Q2D@0900 [facility] Stop: 08/12/19 08:59 Last Admin: 07/15/19 08:20 Dose: 325 mg Documented by: Finasteride (Proscar) 5 mg PO DAILY [facility] Stop: 08/11/19 08:59 Last Admin: 07/15/19 08:20 Dose: 5 mg Documented by: Fluvastatin Sodium (Lescol) 80 mg PO HS [facility] Stop: 08/11/19 20:59 Last Admin: 07/14/19 21:10 Dose: 80 mg Documented by: Glucagon (Glucagen) 1 mg SQ UD PRN; Protocol PRN Reason: Hypoglycemia Protocol Stop: 08/11/19 05:45 Glucose (Glucose 40%) 15 - 30 gm PO UD PRN; Protocol PRN Reason: Hypoglycemia Protocol Stop: 08/11/19 05:45 Glucose (Dex4 Glucose) 4 - 8 tabs PO UD PRN; Protocol PRN Reason: Hypoglycemia Protocol Stop: 08/11/19 05:45 Diltiazem HCl 125 mg/ Dextrose 125 mls @ 10 mls/hr IV .[id number] [facility]; Protocol Stop: 08/10/19 23:44 Last Titration: 07/13/19 09:55 Dose: Infused Documented by: Ceftriaxone Sodium 2,000 mg/ (Dextrose) 70 mls @ 100 mls/hr IV Q24H [facility]; Protocol Stop: 07/22/19 14:59 Last Infusion: 07/15/19 15:42 Dose: Infused Documented by: Furosemide 80 mg/ Syringe 8 mls @ 4 mls/min IV BID [facility] Stop: 08/11/19 14:29 Last Admin: 07/13/19 08:06 Dose: 4 mls/min Documented by: Insulin Aspart (Novolog Flexpen) 0 units SC ACHS [facility]; Protocol Stop: 08/11/19 07:29 Last Admin: 07/15/19 12:28 Dose: 8 units Documented by: Ioversol (Optiray 320 100ml) 100 ml IV ONCE PRN PRN Reason: Interaction Checking Stop: 07/16/19 02:24 Last Admin: 07/12/19 02:25 Dose: 93 ml Documented by: Lidocaine HCl (Xylocaine 2% Jelly) 5 ml EXT TID PRN PRN Reason: urethra pain Stop: 08/14/19 08:59 Last Admin: 07/15/19 14:36 Dose: 5 ml Documented by: Magnesium Oxide (Mag-Ox) 400 mg PO BID [facility] Stop: 08/11/19 08:59 Last Admin: 07/15/19 08:21 Dose: 400 mg Documented by: Metoprolol Tartrate (Lopressor) 75 mg PO Q6 [facility] Stop: 08/12/19 17:59 Last Admin: 07/15/19 12:28 Dose: 75 mg Documented by: Miscellaneous (Carbohydrates For Hypoglycemia) 15 - 30 gm PO UD PRN PRN Reason: Hypoglycemia Treatment Stop: 08/11/19 05:45 Miscellaneous Information (Consult Glycemic Management Pharmacy) 1 ea N/A UD PRN PRN Reason: Consult Stop: 08/11/19 08:34 Morphine Sulfate (Morphine Sulfate) 2 mg IV Q4H PRN PRN Reason: Pain Stop: 07/26/19 15:45 Last Admin: 07/14/19 21:01 Dose: 2 mg Documented by: Ondansetron HCl (Zofran) 4 mg IV Q6H PRN PRN Reason: nausea or vomiting Stop: 08/11/19 05:45 Potassium Chloride (Klor-Con M20) 20 meq PO TID [facility] Stop: 08/11/19 08:59 Last Admin: 07/15/19 14:37 Dose: 20 meq Documented by: Rivaroxaban (Xarelto) 20 mg PO DAILY@1700 [facility] Stop: 08/12/19 16:39 Last Admin: 07/14/19 16:31 Dose: 20 mg Documented by: Tamsulosin HCl (Flomax) 0.4 mg PO HS [facility] Stop: 08/11/19 20:59 Last Admin: 07/14/19 21:10 Dose: 0.4 mg Documented by: PG Care Time/CCT Total # of Minutes Spent Total Time Spent with Patient: Total time spent is greater than 50% in coordination of care (as documented) at patient's floor/unit and/or counseling patient: Resident Activity Tracking Resident Involvement: Resident Care Provided Care Provided: Adult Hospital Medicine
[2019-07-15] MEDS: ACETAMINOPHEN 325 MG TAB PO PRN ×2 (15:48→20:03)
[2019-07-15] MEDS: RIVAROXABAN 20 MG TAB PO SCH (17:43)
[2019-07-15] MEDS: TAMSULOSIN HCL 0.4 MG CAP PO SCH (21:25)
[2019-07-15] MEDS: FLUVASTATIN SODIUM 20 MG CAP PO SCH (21:25)
[2019-07-16] MEDS: ALBUT/IPRATROP 3MG/0.5MG NEB 3 ML VIAL NEB SCH ×4 (00:11→19:06)
[2019-07-16] MEDS: METOPROLOL TARTRATE 50 MG TAB PO SCH ×2 (01:26→05:39)
[2019-07-16] MEDS: ACETAMINOPHEN 325 MG TAB PO PRN ×3 (05:46→23:57)
[2019-07-16 07:35] LABS: BUN Creatinine Ratio 32.2 (10-20); Creatinine Clr Calc Pharmacy 57.9 ml/min; Est GFR (African American) 88.5; Est GFR (Non-African American) 76.3
[2019-07-16] MEDS: FINASTERIDE 5 MG TAB PO SCH (08:00)
[2019-07-16] MEDS: BUMETANIDE 1 MG TAB PO SCH (08:00)
[2019-07-16] MEDS: POTASSIUM CHLORIDE 20 MEQ TABCR PO SCH ×3 (08:00→19:53)
[2019-07-16] MEDS: MAGNESIUM OXIDE 400 MG TAB PO SCH ×2 (08:01→19:54)
[2019-07-16] MEDS: INSULIN ASPART 100 UNITS/ML 3 ML PEN SC SCH ×4 (08:01→21:55)
--- NOTE | 2019-07-16 08:16 | Family Medicine Progress Note ---
Date of Service July 16, 2019 Assessment & Plan (1) Atrial fibrillation with RVR: 89yo M PMH CHF, CAD, HLD, T2DM admitted on 07/12/19 with CHF exacerbation with acute hypoxic respiratory failure and new afib. Atrial fibrillation with RVR Initiated 250mcg digoxin due to elevated heart rates on 07/14/19. Has received full 1mg IV loading dosing; converted to PO dosing on 07/16. -Patient was started on a heparin drip and a Cardizem drip on admission. -Cardizem gtt dc'd and heparin gtt converted to xarelto on 07/13. -Cardiology consulted, appreciate recs -Patient has been diuresing well, approaching euvolemia, reduce Bumex to 1 mg daily -Switch metoprolol tartrate to succinate, digoxin level tomorrow morning consider increasing to 0.25 mg daily -Continue to monitor if rates do not decrease will consider adding calcium channel reva -Transition to metoprolol succinate 150 mg twice daily Acute on chronic CHF exacerbation Patient takes 80 mg of Lasix daily as an outpatient. Will DC on discharge in favor of Bumex 1 mg daily -Dry weight goal 87 kg -93.8->90.0->90.4->89.6--will monitor, has had acceptable diuresis from I&O measurements -Bumex 1 mg daily -Strict I/O's -Once BP is stable and rate control achieved consider adding MANUEL -Echo, as above: Moderate global hypokinesis, Left and right atrium mildly dilated Acute respiratory failure with hypoxia likely 2/2 CHF exacerbation and afib RVR -Wean O2 as tolerated -Management as above -Duonebs prn Abdominal distention -Abdominal CT on admission: congestive failure/fluid overload, prostamegaly, bladder wall thickening and infiltration of adjacent fat, cannot exclude cystitis cannot exclude malignancy. -f/u uro as outpt -Suspect abdominal discomfort and distention secondary to fluid overloaded status, improving with diuresis -Morphine 2 mg q4h prn Bladder wall thickening -Suspicious for malignancy versus cystitis -Consulted uro, appreciate recs -Long-standing bladder outlet obstruction, maintain Lopez for 5 to 7 days day 4/7 -Proscar while inpatient, add tamsulosin -Preliminary urinary cultures are positive for gram-negative bacilli started on ceftriaxone on 07/12 -Urine cytology followed by outpatient cystoscopy -Continue CTX day 4/5 tx to po tomorrow Elevated troponin: Resolved -Likely secondary to demand ischemia trending troponins. Have stabilized. -Consider coronary angiography, deferred to outpatient Type II diabetes mellitus -Heart healthy and diabetic diet -Hold Metformin -glycemic consult placed Hyperlipidemia: -Continue Fluvastatin CAD (coronary artery disease) -Remote h/o CABG -Continue Metoprolol and aspirin -Consider outpt coronary angio Sacral Ulcer Nursing alerted us to sacral ulcer have a centimeter by half centimeter placed the patch on it not concerning for infection. -Routine wound care FENa:DMII Code Status:DNR/DNI DVT PPX: Xarelto PT/OT: as pt improves Dispo:PCU Alcides Vickers MD PGY 2, FCM This chart was completed utilizing [employer] voice recognition software. Grammatical errors, random word insertions, pronoun errors, and in complete sentences are an occasional consequence of the system. Any questions or concerns about the content, text, or information contained within the body of this dictation should be addressed directly to the physician for clarification. Supervising Physician Co-Signing Physician Notes Patient seen and examined with Dr. Vickers. I agree with their exam findings, review of systems, assessment and plan. I have personally reviewed the lab work and imaging from today. patient continues to feel better every day, breathing well, less edema in legs reviewed I/O, negative 9.5 liters for admission, reviewed labs discussed with Dr. Kulkarni, appreciate his input Exam: WDWN male, no distress, lungs CTA bilaterally, normal effort, irreg irreg, normal rates, no murmurs, +1 edema bilaterally - Atrial fibrillation with RVR: rates well controlled for most of the day, converted to Toprol 150mg BID, continue on Digoxin continue Xarelto for anticoagulation - Acute on chronic heart failure, preserved EF: much improved, continue Bumex 1mg PO daily, net negative every day, down 9.5 liters weight is down almost to baseline - Pressure ulcer sacrum stage I, POA: wound care consulted, preventative measures, encourage activity Subjective Patient sitting upright in his chair this morning in good spirits in no acute distress. Patient reports doing well overnight, sleeping well, had a bowel movement this morning, tolerating his diet, and producing good output through his Lopez. Over the weekend there is a period of time where his Lopez became clogged, after some manipulation adequate urine output was achieved. Patient reports overall his breathing is better he is less tenderness abdomen, and is excited for discharge in the coming days. No acute concerns at present all questions answered. Physical Exam Physical Exam: General: Elderly gentleman in no acute distress HEENT: Normocephalic atraumatic Neck: Normal to visual inspection Cardiac: Irregularly irregular approximately 80 bpm. I did not appreciate any significant murmurs rubs or gallops, negative JVD, negative calf tenderness, 2+ pedal edema bilaterally Respiratory: Clear to auscultation bilaterally with symmetrical chest expansion, did not appreciate significant wheezes, rales, rhonchi GI: Significantly less distended, no longer tender to palpation, bowel sounds present MSK: Moves all extremities Skin: Deferred Neuro: Alert and oriented x4 Psych: Calm, cooperative Results & Data Vital Signs (Past 12 Hours) Vital Signs Temp Pulse Pulse Pulse Resp BP BP 07/16/19 07:31 36.5 C 92 H 19 106/63 07/16/19 06:59 83 18 07/16/19 03:26 36.6 C 91 H 19 123/77 07/16/19 00:13 61 22 07/16/19 00:12 61 22 07/16/19 00:00 92 H 07/15/19 23:26 36.4 C L 73 17 137/78 Pulse Ox 07/16/19 07:31 90 07/16/19 06:59 91 07/16/19 03:26 94 07/16/19 00:13 96 07/16/19 00:12 96 07/16/19 00:00 07/15/19 23:26 97 Laboratory Results 07/16/19 07/16/19 07/15/19 Range/Units 06:50 06:43 20:32 Sodium 139 (136-145) mmol/L Potassium 4.0 (3.5-5.1) mmol/L Chloride 99 (98-107) mmol/L Carbon Dioxide 37 H (21-32) mmol/L Anion Gap 3.0 (3-11) BUN 29 H (7-18) mg/dl Creatinine 0.89 (0.6-1.4) mg/dl Est Cr Clr Drug Dosing 57.9 ml/min Est GFR ( Amer) 88.5 Est GFR (Non-Af Amer) 76.3 BUN/Creatinine Ratio 32.2 H (10-20) Glucose 124 H (70-99) mg/dl POC Glucose 123 H 125 H (70-99) Calcium 9.0 (8.5-10.1) mg/dl 07/15/19 07/15/19 Range/Units 16:17 11:22 Sodium (136-145) mmol/L Potassium (3.5-5.1) mmol/L Chloride (98-107) mmol/L Carbon Dioxide (21-32) mmol/L Anion Gap (3-11) BUN (7-18) mg/dl Creatinine (0.6-1.4) mg/dl Est Cr Clr Drug Dosing ml/min Est GFR ( Amer) Est GFR (Non-Af Amer) BUN/Creatinine Ratio (10-20) Glucose (70-99) mg/dl POC Glucose 114 H 168 H (70-99) Calcium (8.5-10.1) mg/dl Medications Administered Current Inpatient Medications Acetaminophen (Tylenol) 650 mg PO Q4H PRN PRN Reason: mild pain or fever Stop: 08/11/19 05:45 Last Admin: 07/16/19 05:46 Dose: 650 mg Documented by: Albuterol (Duoneb) 3 ml NEB Q6R [facility] Stop: 08/11/19 06:59 Last Admin: 07/16/19 06:58 Dose: 3 ml Documented by: Bumetanide (Bumex) 1 mg PO DAILY [facility] Stop: 08/16/19 08:59 Dextrose (Dextrose 50%) 25 - 50 ml IV UD PRN; Protocol PRN Reason: Hypoglycemia Protocol Stop: 08/11/19 05:45 Digoxin (Lanoxin) 0.125 mg PO DAILY@1600 [facility] Stop: 08/15/19 15:59 Diltiazem HCl (Cardizem) 90 mg PO QID [facility] Stop: 08/12/19 12:59 Last Admin: 07/13/19 14:21 Dose: Not Given Documented by: Ferrous Sulfate (Feosol) 325 mg PO Q2D@0900 [facility]1983 Stop: 08/12/19 08:59 Last Admin: 07/15/19 08:20 Dose: 325 mg Documented by: Finasteride (Proscar) 5 mg PO DAILY [facility] Stop: 08/11/19 08:59 Last Admin: 07/16/19 08:00 Dose: 5 mg Documented by: Fluvastatin Sodium (Lescol) 80 mg PO HS JOVANNY Stop: 08/11/19 20:59 Last Admin: 07/15/19 21:25 Dose: 80 mg Documented by: Glucagon (Glucagen) 1 mg SQ UD PRN; Protocol PRN Reason: Hypoglycemia Protocol Stop: 08/11/19 05:45 Glucose (Glucose 40%) 15 - 30 gm PO UD PRN; Protocol PRN Reason: Hypoglycemia Protocol Stop: 08/11/19 05:45 Glucose (Dex4 Glucose) 4 - 8 tabs PO UD PRN; Protocol PRN Reason: Hypoglycemia Protocol Stop: 08/11/19 05:45 Diltiazem HCl 125 mg/ Dextrose 125 mls @ 10 mls/hr IV .[id number] [facility], [facility]; Protocol Stop: 08/10/19 23:44 Last Titration: 07/13/19 09:55 Dose: Infused Documented by: Ceftriaxone Sodium 2,000 mg/ (Dextrose) 70 mls @ 100 mls/hr IV Q24H [facility], [facility]; Protocol Stop: 07/22/19 14:59 Last Infusion: 07/15/19 15:42 Dose: Infused Documented by: Furosemide 80 mg/ Syringe 8 mls @ 4 mls/min IV BID [facility] Stop: 08/11/19 14:29 Last Admin: 07/13/19 08:06 Dose: 4 mls/min Documented by: Insulin Aspart (Novolog Flexpen) 0 units SC ACHS [facility], [facility]; Protocol Stop: 08/11/19 07:29 Last Admin: 07/16/19 08:01 Dose: 6 units Documented by: Lidocaine HCl (Xylocaine 2% Jelly) 5 ml EXT TID PRN PRN Reason: urethra pain Stop: 08/14/19 08:59 Last Admin: 07/15/19 14:36 Dose: 5 ml Documented by: Magnesium Oxide (Mag-Ox) 400 mg PO BID [facility] Stop: 08/11/19 08:59 Last Admin: 07/16/19 08:01 Dose: 400 mg Documented by: Metoprolol Tartrate (Lopressor) 75 mg PO Q6 JOVANNY Stop: 08/12/19 17:59 Last Admin: 07/16/19 05:39 Dose: 75 mg Documented by: Miscellaneous (Carbohydrates For Hypoglycemia) 15 - 30 gm PO UD PRN PRN Reason: Hypoglycemia Treatment Stop: 08/11/19 05:45 Miscellaneous Information (Consult Glycemic Management Pharmacy) 1 ea N/A UD PRN PRN Reason: Consult Stop: 08/11/19 08:34 Morphine Sulfate (Morphine Sulfate) 2 mg IV Q4H PRN PRN Reason: Pain Stop: 07/26/19 15:45 Last Admin: 07/14/19 21:01 Dose: 2 mg Documented by: Ondansetron HCl (Zofran) 4 mg IV Q6H PRN PRN Reason: nausea or vomiting Stop: 08/11/19 05:45 Potassium Chloride (Klor-Con M20) 20 meq PO TID [facility] Stop: 08/11/19 08:59 Last Admin: 07/16/19 08:00 Dose: 20 meq Documented by: Rivaroxaban (Xarelto) 20 mg PO DAILY@1700 [facility]1983 Stop: 08/12/19 16:39 Last Admin: 07/15/19 17:43 Dose: 20 mg Documented by: Tamsulosin HCl (Flomax) 0.4 mg PO HS [facility] Stop: 08/11/19 20:59 Last Admin: 07/15/19 21:25 Dose: 0.4 mg Documented by: PG Care Time/CCT Total # of Minutes Spent Total Time Spent with Patient: Total time spent is greater than 50% in coordination of care (as documented) at patient's floor/unit and/or counseling patient: Resident Activity Tracking Resident Involvement: Resident Care Provided Care Provided: Adult Hospital Medicine
--- NOTE | 2019-07-16 09:39 | Cardiology Progress Note ---
Date of Service July 16, 2019 Assessment & Plan (1) Atrial fibrillation with RVR: Continues to have some higher rates at times. He has not been ambulatory. Whether he will require some calcium channel reva in addition is unclear. I think we can switch his metoprolol tartrate to succinate. We will check a digoxin level in the morning. Perhaps we can increase his daily digoxin dose 2.2 5 mg daily. He will continue his Xarelto.. (2) CAD (coronary artery disease): The patient has a remote history of CABG. Would continue medical management with metoprolol, aspirin, and fluvastatin. (3) Elevated troponin: Minimal elevation likely related to decompensated CHF rather than an acute coronary syndrome. (4) Cardiomyopathy: He has had aggressive diuresis. Objectively he is improved. He also appears to be symptomatic Melany improved although he has not ambulated much. I think we can reduce his diuretic to a single daily dose of Bumex. (5) Acute systolic congestive heart failure: Continues to diurese well. Seems to be approaching euvolemia. Subjective This morning the patient claims to be feeling right. He was little upset that he had a bowel movement this morning but could not make it to the bedside commode. Did not describe abdominal discomfort. Did not describe breathing trouble. He has not ambulated much by report. Review of Systems Review of Systems: Per HPI Physical Exam Physical Exam: The patient is alert and oriented. Mood and affect appeared n ormal. He answered all questions appropriately. HEENT: Pupils are equal and reactive to light and accommodation. Extraocular movements are intact. The sclerae are anicteric. Neuro: Cranial nerves intact Lungs: Clear to auscultation bilaterally. He has good air movement without use of accessory muscles. No rales wheezes or rhonchi. Cardiac: Heart demonstrates an irregular rate and rhythm. Normal S1 and S2. No murmurs on examination. Pulses: The patient has palpable radial pulses bilaterally that are equal in intensity Extremities: There was no evidence of hypoperfusion. There is no cyanosis or clubbing. There is no edema. Skin: I did not appreciate any rashes on examination today. Results & Data Vital Signs (Past 12 Hours) Vital Signs Temp Pulse Pulse Pulse Resp BP BP 07/16/19 07:31 36.5 C 92 H 19 106/63 07/16/19 06:59 83 18 07/16/19 03:26 36.6 C 91 H 19 123/77 07/16/19 00:13 61 22 07/16/19 00:12 61 22 07/16/19 00:00 92 H 07/15/19 23:26 36.4 C L 73 17 137/78 Pulse Ox 07/16/19 07:31 90 07/16/19 06:59 91 07/16/19 03:26 94 07/16/19 00:13 96 07/16/19 00:12 96 07/16/19 00:00 07/15/19 23:26 97 Laboratory Results Abnormal Lab Results 07/15/19 07/15/19 07/15/19 11:22 16:17 20:32 Sodium Potassium Chloride Carbon Dioxide Anion Gap BUN Creatinine Est Cr Clr Drug Dosing Est GFR ( Amer) Est GFR (Non-Af Amer) BUN/Creatinine Ratio Glucose POC Glucose 168 H 114 H 125 H Calcium 07/16/19 07/16/19 06:43 06:50 Sodium 139 Potassium 4.0 Chloride 99 Carbon Dioxide 37 H Anion Gap 3.0 BUN 29 H Creatinine 0.89 Est Cr Clr Drug Dosing 57.9 Est GFR ( Amer) 88.5 Est GFR (Non-Af Amer) 76.3 BUN/Creatinine Ratio 32.2 H Glucose 124 H POC Glucose 123 H Calcium 9.0 PG Care Time/CCT Total # of Minutes Spent Total Time Spent with Patient: Total time spent is greater than 50% in coordination of care (as documented) at patient's floor/unit and/or counseling patient:
[2019-07-16] MEDS: METOPROLOL SUCC 50MG EXT REL TAB PO SCH ×2 (12:05→19:52)
--- NOTE | 2019-07-16 12:09 | Pharmacy Report ---
Pharmacy Glycemic Short Note 2 - Date of Service July 16, 2019 - Glycemic Short BSG Results (Last 24 hours): 07/15/19 07/15/19 07/16/19 16:17 20:32 06:43 Glucose POC Glucose 114 H 125 H 123 H 07/16/19 07/16/19 06:50 11:22 Glucose 124 H POC Glucose 148 H ASSESSMENT: * 89 year old admitted with afib started on heparin drip and diltiazem drip. PMHx significant for afib, hld, CAD. Type 2 diabetes managed only on metformin at home. Unknown A1C - no A1C's on prior admissions. Will order for tomorrow AM * Fasting BSG elevated at 208 mg/dL - metformin held on admission, will start novolog SSI this morning. Type 2 diet ordered 07/16: * Patient requiring about 20 units daily of insulin in the last 48 hrs * BSGs have been stable - will continue same CF/CF for now, will loosen CR later this evening as will restart metformin * Has not needed basal insulin as fasting BSGs have been w/in range PLAN FOR INPATIENT GLYCEMIC CONTROL: * Patient on metformin at home - will resume with dinner this evening (been >48 hrs since iv contrast) * Basal insulin * Lantus - hold for now * Bolus insulin - loosen * NovoLog per scale ACHS or Q6hrs while NPO * Goal Range: Low 120 mg/dL - High 160 mg/dL * Correction Factor: 30 mg/dL/unit * Nutritional / Prandial insulin per carb ratio of 1 unit per 13 grams CHO consumed PLAN FOR DISCHARGE: * A1C of 6.9% indicates adequate glycemic control - would recommend continuation of metformin on discharge * Please note that the plan above was derived based on current level of insulin resistance and hospital stress. These recommendations are appropriate for inpatient admission only. Plan of care upon discharge will need to be reassessed to avoid potential outpatient hypo/hyperglycemia. Thank you.
[2019-07-16] MEDS: cefTRIAXone SODIUM 2,000 MG in DEXTROSE 5% 50 ML IV SCH (14:45)
[2019-07-16] MEDS: DIGOXIN 0.125 MG TAB PO SCH (17:00)
[2019-07-16] MEDS: METFORMIN HCL 500 MG TAB PO SCH (17:05)
[2019-07-16] MEDS: RIVAROXABAN 20 MG TAB PO SCH (17:05)
[2019-07-16] MEDS: TAMSULOSIN HCL 0.4 MG CAP PO SCH (19:56)
[2019-07-16] MEDS: FLUVASTATIN SODIUM 20 MG CAP PO SCH (22:00)
[2019-07-17] MEDS: ALBUT/IPRATROP 3MG/0.5MG NEB 3 ML VIAL NEB SCH ×4 (00:39→19:38)
[2019-07-17 08:08] LABS: BUN Creatinine Ratio 32.1 (10-20); Calcium 9.1 mg/dl (8.5-10.1); Creatinine Clr Calc Pharmacy 59.4 ml/min; Est GFR (African American) 89.3; Est GFR (Non-African American) 77.1
[2019-07-17] MEDS: INSULIN ASPART 100 UNITS/ML 3 ML PEN SC SCH ×4 (08:51→20:59)
[2019-07-17] MEDS: METFORMIN HCL 500 MG TAB PO SCH ×2 (08:52→17:00)
[2019-07-17] MEDS: MAGNESIUM OXIDE 400 MG TAB PO SCH ×2 (08:53→20:48)
[2019-07-17] MEDS: FERROUS SULFATE 325 MG TAB PO SCH (08:53)
[2019-07-17] MEDS: METOPROLOL SUCC 50MG EXT REL TAB PO SCH ×2 (08:53→20:50)
[2019-07-17] MEDS: POTASSIUM CHLORIDE 20 MEQ TABCR PO SCH ×3 (08:53→20:47)
[2019-07-17] MEDS: FINASTERIDE 5 MG TAB PO SCH (08:53)
[2019-07-17] MEDS ORDERED: BUMETANIDE 1 MG TAB PO SCH ×2 (09:00→17:00)
--- NOTE | 2019-07-17 09:26 | Cardiology Progress Note ---
Date of Service July 17, 2019 Assessment & Plan (1) Atrial fibrillation with RVR: He continues to have some elevated rates at times. Unclear if he actually has an atrial flutter based on his telemetry recordings. I will order an EKG today to help with that diagnosis. Atrial flutter may be more difficult to control in atrial fibrillation. It does not appear that the digoxin provided significant rate control. While the addition of calcium channel blockers is not ideal given his known cardiomyopathy we may need to employ a this therapy currently in order to provide adequate rate control. He should continue his anticoagulation. (2) CAD (coronary artery disease): The patient has a remote history of CABG. Would continue medical management with metoprolol, aspirin, and fluvastatin. (3) Elevated troponin: Minimal elevation likely related to decompensated CHF rather than an acute coronary syndrome. (4) Cardiomyopathy: He has had aggressive diuresis. Objectively he is improved. He also appears to be symptomatic Melany improved although he has not ambulated much. I think we can reduce his diuretic to a single daily dose of Bumex. (5) Acute systolic congestive heart failure: His diuresis was not as robust yesterday. He received a single dose of Bumex however, his intake which much greater than usual. I still think this is likely the proper dose for him. I would continue him on 1 milligram of Bumex daily.. Subjective This morning patient clinically feeling well. He reported ambulating yesterday around his room and briefly into the hallway. He denied difficulty with breathing. He denies dizziness or lightheadedness. He states his legs feel somewhat weak but overall he was quite satisfied with his ambulation. No symptoms of palpitations. Overall feeling much better. Review of Systems Review of Systems: Per HPI Physical Exam Physical Exam: The patient is alert and oriented. Mood and affect appeared normal. He answered all questions appropriately. HEENT: Pupils are equal and reactive to light and accommodation. Extraocular movements are intact. The sclerae are anicteric. Neuro: Cranial nerves intact Lungs: Some crackles at the bases bilaterally. Normal respiratory effort. No expiratory wheezing. Cardiac: Heart demonstrates an irregular rate and rhythm. Normal S1 and S2. No murmurs on examination. Pulses: The patient has palpable radial pulses bilaterally that are equal in intensity Extremities: There was no evidence of hypoperfusion. There is no cyanosis or clubbing. Skin: I did not appreciate any rashes on examination today. Results & Data Vital Signs (Past 12 Hours) Vital Signs Temp Pulse Pulse Pulse Resp BP Pulse Ox 07/17/19 07:42 64 20 87 L 07/17/19 06:40 36.4 C L 96 H 19 149/88 H 98 07/17/19 03:21 36.5 C 104 H 19 99/69 L 98 07/17/19 00:44 65 18 94 07/17/19 00:39 63 18 94 07/17/19 00:00 112 H 07/16/19 23:23 36.7 C 123 H 20 126/85 93 Laboratory Results Abnormal Lab Results 07/16/19 07/16/19 07/16/19 11:22 16:32 20:34 Sodium Potassium Chloride Carbon Dioxide Anion Gap BUN Creatinine Est Cr Clr Drug Dosing Est GFR ( Amer) Est GFR (Non-Af Amer) BUN/Creatinine Ratio Glucose POC Glucose 148 H 97 113 H Calcium Digoxin 07/17/19 07/17/19 07/17/19 06:32 06:34 07:14 Sodium 140 Potassium 4.0 Chloride 100 Carbon Dioxide 38 H Anion Gap 2.0 L BUN 28 H Creatinine 0.87 Est Cr Clr Drug Dosing 59.4 Est GFR ( Amer) 89.3 Est GFR (Non-Af Amer) 77.1 BUN/Creatinine Ratio 32.1 H Glucose 115 H POC Glucose 109 H Calcium 9.1 Digoxin 1.3
[2019-07-17] MEDS: dilTIAZem HCL 30 MG TAB PO SCH ×3 (10:37→20:50)
--- NOTE | 2019-07-17 11:59 | Family Medicine Progress Note ---
Date of Service July 17, 2019 Assessment & Plan (1) Atrial fibrillation with RVR: 89yo M H CHF, CAD, HLD, T2DM admitted on 07/12/19 with CHF exacerbation with acute hypoxic respiratory failure and new afib. Atrial fibrillation with RVR Patient was started on a heparin drip and a Cardizem drip on admission. Cardizem gtt dc'd and heparin gtt converted to xarelto on 07/13. Initiated 250mcg digoxin due to elevated heart rates on 07/14/19. Has received full 1mg IV loading dosing; converted to PO dosing on 07/16. -Cardiology consulted, appreciate recs -Patient has been diuresing well, approaching euvolemia, consider reducing Bumex to 1 mg daily -Continue metoprolol succinate 150 mg twice daily -Digoxin does not appear to help him significantly with rate control question flutter versus fib. -Continue Dig 0.125 mg -Continue to monitor if rates do not decrease will consider adding calcium channel reva -continue metoprolol succinate 150 mg twice daily -Increased Bumex to twice daily, will change back to daily tomorrow Acute on chronic CHF exacerbation Patient takes 80 mg of Lasix daily as an outpatient. Will DC on discharge in favor of Bumex 1 mg daily -Dry weight goal 87 kg -93.8->90.0->90.4->89.6--will monitor, has had acceptable diuresis from I&O measurements -Bumex 1 mg daily, given an extra dose today -Strict I/O's -Once BP is stable and rate control achieved consider adding MANUEL -Echo, as above: Moderate global hypokinesis, Left and right atrium mildly dilated Acute respiratory failure with hypoxia likely 2/2 CHF exacerbation and afib RVR -Wean O2 as tolerated -Management as above -Duonebs prn Abdominal distention -Abdominal CT on admission: congestive failure/fluid overload, prostamegaly, bladder wall thickening and infiltration of adjacent fat, cannot exclude cystitis cannot exclude malignancy. -f/u uro as outpt -Suspect abdominal discomfort and distention secondary to fluid overloaded status, improving with diuresis Bladder wall thickening -Suspicious for malignancy versus cystitis -Consulted uro, appreciate recs -Long-standing bladder outlet obstruction, maintain Lopez for 5 to 7 days day 5/7 -Proscar while inpatient, add tamsulosin -Preliminary urinary cultures are positive for gram-negative bacilli started on ceftriaxone on 07/12 -Urine cytology followed by outpatient cystoscopy -Continue CTX day 02/04 tx dc tomorrow Elevated troponin: Resolved -Likely secondary to demand ischemia trending troponins. Have stabilized. -Consider coronary angiography, deferred to outpatient Type II diabetes mellitus -Heart healthy and diabetic diet -Hold Metformin -glycemic consult placed Hyperlipidemia: -Continue Fluvastatin CAD (coronary artery disease) -Remote h/o CABG -Continue Metoprolol and aspirin -Consider outpt coronary angio Sacral Ulcer Nursing alerted us to sacral ulcer have a centimeter by half centimeter placed the patch on it not concerning for infection. -Routine wound care FENa:DMII Code Status:DNR/DNI DVT PPX: Xarelto PT/OT: as pt improves Dispo:PCU Alcides Vickers MD PGY 2, [facility] This chart was completed utilizing [employer] voice recognition software. Grammatical errors, random word insertions, pronoun errors, and in complete sentences are an occasional consequence of the system. Any questions or concerns about the content, text, or information contained within the body of this dictation should be addressed directly to the physician for clarification. Supervising Physician Co-Signing Physician Notes Patient seen and examined with Dr. Vickers. I agree with their exam findings, review of systems, assessment and plan. I have personally reviewed the lab work and imaging from today. patient breathing well, c/o some edema eating well, moving bowels no chest pain or pressure Exam: WDWN male, no distress, rales in bases, normal respiratory effort irreg irreg, normal rates, no murmurs, +1 edema bilaterally - Atrial fibrillation with RVR: rates well controlled for most of the day, converted to Toprol 150mg BID, continue on Digoxin continue Xarelto for anticoagulation added Diltiazem for rate control per Dr. Kulkarni - Acute on chronic heart failure, preserved EF: much improved, continue Bumex 1mg PO daily, net negative every day, down 9.5 liters some rales in bases and some edema, will give extra Bumex 1mg this afternoon, follow output - Pressure ulcer sacrum stage I, POA: wound care consulted, preventative measures, encourage activity Subjective Patient doing well, sitting upright in his chair this morning eating breakfast in no acute distress. Patient reports no acute events overnight. Patient reports tolerating his diet, voiding, stooling, sleeping. Overall patient reports significant subjective improvement in his symptoms particularly his breathing. Patient still requiring CPAP at night and 2 L of oxygen, he was discharged from [facility] on 2 L of oxygen and maintained on 2 L of oxygen at [facility] and presented as on 2 L of oxygen. This may be his new baseline. Patient continues to have Lopez in place and making adequate urine, continuing ceftriaxone for UTI. Acute concerns related to discharge planning patient would like to go to [facility] where his is. Otherwise all questions answered no acute concerns. Physical Exam Physical Exam: General: Elderly gentleman in no acute distress HEENT: Normocephalic atraumatic Neck: Normal to visual inspection Cardiac: Irregularly irregular approximately 85 bpm. I did not appreciate any significant murmurs rubs or gallops, negative JVD, negative calf tenderness, neg pedal edema bilaterally Respiratory: Rales present in bibasilar lungs, symmetrical chest rise, no increased work of breathing GI: Significantly less distended, no longer tender to palpation, bowel sounds present MSK: Moves all extremities Neuro: Alert and oriented x4 Psych: Calm, cooperative Results & Data Vital Signs (Past 12 Hours) Vital Signs Temp Pulse Pulse Pulse Resp BP Pulse Ox 07/17/19 07:42 64 20 87 L 07/17/19 06:40 36.4 C L 96 H 19 149/88 H 98 07/17/19 03:21 36.5 C 104 H 19 99/69 L 98 07/17/19 00:44 65 18 94 07/17/19 00:39 63 18 94 07/17/19 00:00 112 H Laboratory Results 07/17/19 07/17/19 07/17/19 Range/Units 07:14 06:34 06:32 Sodium 140 (136-145) mmol/L Potassium 4.0 (3.5-5.1) mmol/L Chloride 100 (98-107) mmol/L Carbon Dioxide 38 H (21-32) mmol/L Anion Gap 2.0 L (3-11) BUN 28 H (7-18) mg/dl Creatinine 0.87 (0.6-1.4) mg/dl Est Cr Clr Drug Dosing 59.4 ml/min Est GFR ( Amer) 89.3 Est GFR (Non-Af Amer) 77.1 BUN/Creatinine Ratio 32.1 H (10-20) Glucose 115 H (70-99) mg/dl POC Glucose 109 H (70-99) Calcium 9.1 (8.5-10.1) mg/dl Digoxin 1.3 (0.8-2.0) ng/ml 07/16/19 07/16/19 Range/Units 20:34 16:32 Sodium (136-145) mmol/L Potassium (3.5-5.1) mmol/L Chloride (98-107) mmol/L Carbon Dioxide (21-32) mmol/L Anion Gap (3-11) BUN (7-18) mg/dl Creatinine (0.6-1.4) mg/dl Est Cr Clr Drug Dosing ml/min Est GFR ( Amer) Est GFR (Non-Af Amer) BUN/Creatinine Ratio (10-20) Glucose (70-99) mg/dl POC Glucose 113 H 97 (70-99) Calcium (8.5-10.1) mg/dl Digoxin (0.8-2.0) ng/ml Medications Administered Current Inpatient Medications Acetaminophen (Tylenol) 650 mg PO Q4H PRN PRN Reason: mild pain or fever Stop: 08/11/19 05:45 Last Admin: 07/16/19 23:57 Dose: 650 mg Documented by: Albuterol (Duoneb) 3 ml NEB Q6R [facility] Stop: 08/11/19 06:59 Last Admin: 07/17/19 07:34 Dose: 3 ml Documented by: Bumetanide (Bumex) 1 mg PO BID17 [facility] Stop: 08/16/19 16:59 Dextrose (Dextrose 50%) 25 - 50 ml IV UD PRN; Protocol PRN Reason: Hypoglycemia Protocol Stop: 08/11/19 05:45 Digoxin (Lanoxin) 0.125 mg PO DAILY@1600 [facility] Stop: 08/15/19 15:59 Last Admin: 07/16/19 17:00 Dose: 0.125 mg Documented by: Diltiazem HCl (Cardizem) 30 mg PO TID [facility] Stop: 08/16/19 09:59 Last Admin: 07/17/19 10:37 Dose: 30 mg Documented by: Ferrous Sulfate (Feosol) 325 mg PO Q2D@0900 [facility] Stop: 08/12/19 08:59 Last Admin: 07/17/19 08:53 Dose: 325 mg Documented by: Finasteride (Proscar) 5 mg PO DAILY [facility] Stop: 08/11/19 08:59 Last Admin: 07/17/19 08:53 Dose: 5 mg Documented by: Fluvastatin Sodium (Lescol) 80 mg PO HS [facility] Stop: 08/11/19 20:59 Last Admin: 07/16/19 22:00 Dose: 80 mg Documented by: Glucagon (Glucagen) 1 mg SQ UD PRN; Protocol PRN Reason: Hypoglycemia Protocol Stop: 08/11/19 05:45 Glucose (Glucose 40%) 15 - 30 gm PO UD PRN; Protocol PRN Reason: Hypoglycemia Protocol Stop: 08/11/19 05:45 Glucose (Dex4 Glucose) 4 - 8 tabs PO UD PRN; Protocol PRN Reason: Hypoglycemia Protocol Stop: 08/11/19 05:45 Ceftriaxone Sodium 2,000 mg/ (Dextrose) 70 mls @ 100 mls/hr IV Q24H [facility]; Protocol Stop: 07/22/19 14:59 Last Infusion: 07/16/19 15:26 Dose: 0 mls/hr Documented by: Insulin Aspart (Novolog Flexpen) 0 units SC ACHS [facility]; Protocol Stop: 08/11/19 07:29 Last Admin: 07/17/19 08:51 Dose: 3 units Documented by: Lidocaine HCl (Xylocaine 2% Jelly) 5 ml EXT TID PRN PRN Reason: urethra pain Stop: 08/14/19 08:59 Last Admin: 07/15/19 14:36 Dose: 5 ml Documented by: Magnesium Oxide (Mag-Ox) 400 mg PO BID [facility] Stop: 08/11/19 08:59 Last Admin: 07/17/19 08:53 Dose: 400 mg Documented by: Metformin HCl (Glucophage) 500 mg PO BIDM [facility]; Protocol Stop: 08/15/19 16:59 Last Admin: 07/17/19 08:52 Dose: 500 mg Documented by: Metoprolol Succinate (Toprol Xl) 150 mg PO BID [facility] Stop: 08/15/19 10:59 Last Admin: 07/17/19 08:53 Dose: 150 mg Documented by: Miscellaneous (Carbohydrates For Hypoglycemia) 15 - 30 gm PO UD PRN PRN Reason: Hypoglycemia Treatment Stop: 08/11/19 05:45 Miscellaneous Information (Consult Glycemic Management Pharmacy) 1 ea N/A UD PRN PRN Reason: Consult Stop: 08/11/19 08:34 Morphine Sulfate (Morphine Sulfate) 2 mg IV Q4H PRN PRN Reason: Pain Stop: 07/26/19 15:45 Last Admin: 07/14/19 21:01 Dose: 2 mg Documented by: Ondansetron HCl (Zofran) 4 mg IV Q6H PRN PRN Reason: nausea or vomiting Stop: 08/11/19 05:45 Potassium Chloride (Klor-Con M20) 20 meq PO TID [facility] Stop: 08/11/19 08:59 Last Admin: 07/17/19 08:53 Dose: 20 meq Documented by: Rivaroxaban (Xarelto) 20 mg PO DAILY@1700 [facility] Stop: 08/12/19 16:39 Last Admin: 07/16/19 17:05 Dose: 20 mg Documented by: Tamsulosin HCl (Flomax) 0.4 mg PO HS [facility] Stop: 08/11/19 20:59 Last Admin: 07/16/19 19:56 Dose: 0.4 mg Documented by: PG Care Time/CCT Total # of Minutes Spent Total Time Spent with Patient: Total time spent is greater than 50% in coordination of care (as documented) at patient's floor/unit and/or counseling patient: Resident Activity Tracking Resident Involvement: Resident Care Provided Care Provided: Adult Hospital Medicine
[2019-07-17] MEDS: ACETAMINOPHEN 325 MG TAB PO PRN (15:34)
[2019-07-17] MEDS: DIGOXIN 0.125 MG TAB PO SCH (15:35)
[2019-07-17] MEDS: cefTRIAXone SODIUM 2,000 MG in DEXTROSE 5% 50 ML IV SCH (15:39)
[2019-07-17] MEDS ORDERED: BUMETANIDE 1 MG TAB PO ONE (17:00)
[2019-07-17] MEDS: RIVAROXABAN 20 MG TAB PO SCH (17:03)
[2019-07-17] MEDS: TAMSULOSIN HCL 0.4 MG CAP PO SCH (20:48)
[2019-07-17] MEDS: FLUVASTATIN SODIUM 20 MG CAP PO SCH (20:49)
[2019-07-18] MEDS: ALBUT/IPRATROP 3MG/0.5MG NEB 3 ML VIAL NEB SCH ×4 (00:57→19:08)
[2019-07-18] MEDS: ACETAMINOPHEN 325 MG TAB PO PRN ×2 (02:12→22:41)
[2019-07-18 06:54] LABS: Basophils # (auto) 0.01 K/uL (0-0.2); Basophils % (auto) 0.1 %; Eosinophils # (auto) 0.17 K/uL (0-0.5); Eosinophils % (auto) 2.2 %; Hematocrit (blood only) 42.3 % (42-52); Hemoglobin 13.5 g/dL (14.0-18.0); Immature Granulocytes # (auto) 0.02 K/uL (0.00-0.02); Immature Granulocytes % (auto) 0.3 %; Lymphocytes # (auto) 2.22 K/uL (1.2-3.4); Lymphocytes % (auto) 28.5 %; Mean Corpuscular Hemoglobin 31.4 pg (25-34); Mean Corpuscular Hgb Conc 31.9 g/dL (32-36); Mean Corpuscular Volume 98.4 fL (80-100); Mean Platelet Volume 9.4 fL (7.4-10.4); Monocytes # (auto) 0.75 K/uL (0.11-0.59); Monocytes % (auto) 9.6 %; Neutrophils # (auto) 4.63 K/uL (1.4-6.5); Neutrophils % (auto) 59.3 %; Platelet Count 228 K/uL (130-400); RDW Coefficient of Variation 13.9 % (11.5-14.5); RDW Standard Deviation 49.3 fL (36.4-46.3)
[2019-07-18 07:23] LABS: BUN Creatinine Ratio 26.4 (10-20); Calcium 9.2 mg/dl (8.5-10.1); Creatinine Clr Calc Pharmacy 49.5 ml/min; Est GFR (Non-African American) 63.8; Potassium 4.4 mmol/L (3.5-5.1)
[2019-07-18] MEDS: INSULIN ASPART 100 UNITS/ML 3 ML PEN SC SCH ×4 (08:03→20:54)
[2019-07-18] MEDS: dilTIAZem HCL 30 MG TAB PO SCH ×3 (08:12→21:05)
[2019-07-18] MEDS: METFORMIN HCL 500 MG TAB PO SCH ×2 (08:12→17:23)
[2019-07-18] MEDS: POTASSIUM CHLORIDE 20 MEQ TABCR PO SCH ×3 (08:12→21:02)
[2019-07-18] MEDS: BUMETANIDE 1 MG TAB PO SCH (08:12)
[2019-07-18] MEDS: METOPROLOL SUCC 50MG EXT REL TAB PO SCH ×2 (08:13→21:04)
[2019-07-18] MEDS: FINASTERIDE 5 MG TAB PO SCH (08:14)
[2019-07-18] MEDS: MAGNESIUM OXIDE 400 MG TAB PO SCH ×2 (08:14→21:03)
--- NOTE | 2019-07-18 08:32 | Family Medicine Progress Note ---
Date of Service July 18, 2019 Assessment & Plan (1) Atrial fibrillation with RVR: 89yo M H CHF, CAD, HLD, T2DM admitted on 07/12/19 with CHF exacerbation with acute hypoxic respiratory failure and new afib. Atrial fibrillation with RVR Patient was started on a heparin drip and a Cardizem drip on admission. Cardizem gtt dc'd and heparin gtt converted to xarelto on 07/13. Initiated 250mcg digoxin due to elevated heart rates on 07/14/19. Has received full 1mg IV loading dosing; converted to PO dosing on 07/16. -Cardiology consulted, appreciate recs -Rate control achieved with diltiazem, transition to long-acting formulation 120 mg daily -Continue digoxin -Continue metoprolol -Continue anticoagulation -Plan to follow-up in the outpatient setting for medication titration -Continue fluvastatin, metoprolol, aspirin -At some point the future consider the possibility of ischemic evaluation, however currently symptomatic -Patient has been diuresing well, -Continue Bumex 1 mg daily -Dry weight 89 kg Acute on chronic CHF exacerbation Patient takes 80 mg of Lasix daily as an outpatient. Will DC on discharge in favor of Bumex 1 mg daily. On July 18, 2019 patient achieved euvolemia, new dry weight will be considered to be 89 kg we will continue 1 mg Bumex on discharge. -Dry weight goal 89 kg -93.8->90.0->90.4->89.6->90.2->89.6 -Bumex 1 mg daily, -Strict I/O's -Echo, as above: Moderate global hypokinesis, Left and right atrium mildly dilated Acute respiratory failure with hypoxia likely 2/2 CHF exacerbation and afib RVR Currently on 1 L, this may represent his baseline this patient was admitted to the hospital on 2 L of O2 -Wean O2 as tolerated -Management as above -Duonebs prn Abdominal distention Admission CT was suspicious for bladder wall thickening and infiltration of the adjacent fat, cystitis versus malignancy. Patient's urine culture also grew out Proteus vulgaris he was treated with 5 days of ceftriaxone IV. Urology was consulted for the suspicious CT findings they identified long-standing bladder outlet obstruction, and recommend maintaining the Deshpande for 5 to 7 days. Discharge date was day 6, a trial of voids was attempted prior to patient's discharge and was unsuccessful, Deshpande catheter was subsequently replaced. Urine cytology was obtained with the patient was hospitalized, demonstrating blood and acute inflammation. Rare urothelial cells with enlarged hyperchromatic nuclei with irregular nuclear borders. Differential includes reactive degenerative change versus atypical urothelial cells. Patient will follow-up with urology as an outpatient for cystoscopy. Appointment is arranged for 2 weeks from now Bladder wall thickening Admission CT was suspicious for bladder wall thickening and infiltration of the adjacent fat, cystitis versus malignancy. Patient's urine culture also grew out Proteus vulgaris he was treated with 5 days of ceftriaxone IV. Urology was consulted for the suspicious CT findings they identified long-standing bladder outlet obstruction, and recommend maintaining the Deshpande for 5 to 7 days. Discharge date was day 6, a trial of voids was attempted prior to patient's discharge and was unsuccessful, Deshpande catheter was subsequently replaced. Urine cytology was obtained with the patient was hospitalized, demonstrating blood and acute inflammation. Rare urothelial cells with enlarged hyperchromatic nuclei with irregular nuclear borders. Differential includes reactive degenerative change versus atypical urothelial cells. Patient will follow-up with urology as an outpatient for cystoscopy. Appointment is arranged for 2 weeks from now Elevated troponin: Resolved -Likely secondary to demand ischemia trending troponins. Have stabilized. -Consider coronary angiography, deferred to outpatient Type II diabetes mellitus -Heart healthy and diabetic diet -Hold Metformin -glycemic consult placed Hyperlipidemia: -Continue Fluvastatin CAD (coronary artery disease) -Remote h/o CABG -Continue Metoprolol and aspirin -Consider outpt coronary angio Sacral Ulcer Nursing alerted us to sacral ulcer have a centimeter by half centimeter placed the patch on it not concerning for infection. -Routine wound care FENa:DMII Code Status:DNR/DNI DVT PPX: Xarelto PT/OT: as pt improves Dispo:U Alcides Vickers MD PGY 2, [facility] This chart was completed utilizing [employer] voice recognition software. Grammatical errors, random word insertions, pronoun errors, and in complete sentences are an occasional consequence of the system. Any questions or concerns about the content, text, or information contained within the body of this dictation should be addressed directly to the physician for clarification. Supervising Physician Co-Signing Physician Notes Patient seen and examined with Dr. Vickers. I agree with their exam findings, review of systems, assessment and plan. I have personally reviewed the lab work and imaging from today. patient feels great, feels well enough for discharge doing well with therapy, progressing to be more independent deshpande catheter pulled, able to void later in the day Exam: WDWN male, no distress, rales in bases, normal respiratory effort irreg irreg, normal rates, no murmurs, trace edema - Atrial fibrillation with RVR: rates well controlled for most of the day, converted to Toprol 150mg BID, continue on Digoxin continue Xarelto for anticoagulation added Diltiazem for rate control per Dr. Kulkarni, working well, will continue current dose - Acute on chronic heart failure, preserved EF: much improved, continue Bumex 1mg PO daily, net negative every day, down 10 liters examines euvolemic, weight down to baseline - Pressure ulcer sacrum stage I, POA: wound care consulted, preventative measures, encourage activity Subjective Patient doing well today sitting up in his chair. Patient reports no acute events overnight, however noticed a bit of blood at the urethral meatus. Patient making good urine in Deshpande, tolerating his diet, sleeping, stooling. Acute concerns at present related to discharge, all questions answered. Physical Exam Physical Exam: General: Elderly gentleman in no acute distress HEENT: Normocephalic atraumatic Neck: Normal to visual inspection Cardiac: Irregularly irregular approximately 85 bpm. I did not appreciate any significant murmurs rubs or gallops, negative JVD, negative calf tenderness, neg pedal edema bilaterally Respiratory: Rales present in bibasilar lungs, symmetrical chest rise, no increased work of breathing GI: Significantly less distended, no longer tender to palpation, bowel sounds present MSK: Moves all extremities Neuro: Alert and oriented x4 Psych: Calm, cooperative Results & Data Vital Signs (Past 12 Hours) Vital Signs Temp Pulse Pulse Pulse Resp BP BP 07/18/19 07:04 73 18 07/18/19 03:32 36.7 C 65 16 142/85 H 07/18/19 00:59 85 18 07/18/19 00:58 85 18 07/17/19 23:23 36.3 C L 81 22 135/79 07/17/19 22:05 96 H 22 07/17/19 20:51 90 139/67 Pulse Ox 07/18/19 07:04 94 07/18/19 03:32 95 07/18/19 00:59 95 07/18/19 00:58 95 07/17/19 23:23 96 07/17/19 22:05 97 07/17/19 20:51 PG Care Time/CCT Total # of Minutes Spent Total Time Spent with Patient: Total time spent is greater than 50% in co ordination of care (as documented) at patient's floor/unit and/or counseling patient: Resident Activity Tracking Resident Involvement: Resident Care Provided Care Provided: Adult Hospital Medicine
--- NOTE | 2019-07-18 11:20 | Cardiology Progress Note ---
Date of Service July 18, 2019 Assessment & Plan (1) Atrial fibrillation with RVR: Overall rate control appears better on his diltiazem. Although I think at this point we could probably be switched to a long-acting formulation of 120-180 mg daily. He should continue his digoxin and metoprolol currently. He should continue his anticoagulation. I will see him in the outpatient setting and decide if he needs some adjustments in these medications. (2) CAD (coronary artery disease): The patient has a remote history of CABG. Would continue medical management with metoprolol, aspirin, and fluvastatin. (3) Elevated troponin: Minimal elevation likely related to decompensated CHF rather than an acute coronary syndrome. 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 At some point we will add detained the possibility of ischemic evaluation. As he does not have symptoms of angina currently not think this is an urgent matter can be addressed as an outpatient. (5) Acute systolic congestive heart failure: He responds very well to diuretics. He received an extra dose of Bumex yesterday with a good urine output. It is very likely that to maintain usually me a single daily dose of Bumex will be adequate. Subjective This morning the patient claims to be feeling well. He was able to ambulate yesterday did not describe limiting dyspnea. He did not have significant dizziness lightheadedness. No symptoms of chest pain or sense of palpitation. Review of Systems Review of Systems: Per HPI. Patient did notice a drop of blood on his gown early this morning that may be related to his Lopez. Physical Exam Physical Exam: The patient is alert and oriented. Mood and affect appeared normal. He answered all questions appropriately. HEENT: Pupils are equal and reactive to light and accommodation. Extraocular movements are intact. The sclerae are anicteric. Neuro: Cranial nerves intact Lungs: Some crackles at the bases bilaterally. Normal respiratory effort. No expiratory wheezing. Cardiac: Heart demonstrates an irregular rate and rhythm. Normal S1 and S2. No murmurs on examination. Pulses: The patient has palpable radial pulses bilaterally that are equal in intensity Extremities: There was no evidence of hypoperfusion. There is no cyanosis or clubbing. Skin: I did not appreciate any rashes on examination today. Results & Data Vital Signs (Past 12 Hours) Vital Signs Temp Pulse Pulse Pulse Resp BP BP 07/18/19 07:13 36.7 C 82 16 139/72 07/18/19 07:04 73 18 07/18/19 03:32 36.7 C 65 16 142/85 H 07/18/19 00:59 85 18 07/18/19 00:58 85 18 07/17/19 23:23 36.3 C L 81 22 135/79 Pulse Ox 07/18/19 07:13 93 07/18/19 07:04 94 07/18/19 03:32 95 07/18/19 00:59 95 07/18/19 00:58 95 07/17/19 23:23 96 PG Care Time/CCT Total # of Minutes Spent Total Time Spent with Patient: Total time spent is greater than 50% in coordination of care (as documented) at patient's floor/unit and/or counseling patient:
--- NOTE | 2019-07-18 14:34 | Discharge Summary ---
Date of Service July 18, 2019 Admission HPI Per Admitting Provider 89 y/o male presented to the ED from [facility] with a 12 hour history of constant diffuse abdominal pain. He described as having a "soccer ball in my stomach". He did have a normal BM last evening. No vomiting or diarrhea, No F/C, No cough, No chest pain. The patient is a poor historian in regards to past medical history. He is found to be in A.fib with RVR. Primary Care Provider: [facility] Admission Exam Per Admitting Provider General- adult male wearing BIPAP, NAD Head- atraumatic Eyes- PERRL, EOMI, anicteric ENT- oropharynx clear Neck- supple, no JVD, no adenopathy, no thyromegaly. Lungs- Crackles at the bases b/. Heart- Irregular rhythm; no murmur, no gallop, no rub appreciated Abdomen- normal bowel sounds, soft, nontender. Extremities- no calf tenderness; peripheral pulses intact. + 2 pitting edema b/l ankles Neuro- alert, oriented x 3; PERRL, EOMI; health education aide II-XII grossly intact, non-focal. Skin- warm & dry Principal Diagnosis CHF exacerbation, atrial fibrillation with rapid ventricular rate, acute hypoxic respiratory failure, UTI and abnormal bladder wall findings on CT Discharge Exam General: Elderly gentleman in no acute distress HEENT: Normocephalic atraumatic Neck: Normal to visual inspection Cardiac: Irregularly irregular approximately 85 bpm. I did not appreciate any significant murmurs rubs or gallops, negative JVD, negative calf tenderness, neg pedal edema bilaterally Respiratory: Rales present in bibasilar lungs, symmetrical chest rise, no increased work of breathing GI: Significantly less distended, no longer tender to palpation, bowel sounds present MSK: Moves all extremities Neuro: Alert and oriented x4 Psych: Calm, cooperative Discharge Data Allergies Allergy/AdvReac Type Severity Reaction Status Date / Time simvastatin Allergy Unknown Unknown Verified 07/12/19 00:57 Consultations 07/12/19 04:19 ED Decision to Admit Stat 07/12/19 08:28 Consult Cardiology Routine 07/12/19 11:57 Consult Urology Routine 07/13/19 08:18 Consult Health Information Management Routine 07/15/19 09:31 Consult Cardiology Routine Ordered Studies 07/11/19 23:25 CT abd pelvis oral and IV con Urgent Hospital Course (1) Atrial fibrillation with RVR: 89yo M PMH CHF, CAD, HLD, T2DM admitted on 07/12/19 with CHF exacerbation with acute hypoxic respiratory failure and new afib. Atrial fibrillation with RVR Patient was started on a heparin drip and a Cardizem drip on admission. Cardizem gtt dc'd and heparin gtt converted to xarelto on 07/13. Initiated 250mcg digoxin due to elevated heart rates on 07/14/19. Has received full 1mg IV loading dosing; converted to PO dosing on 07/16. Patient is adequately diuresed during this admission, he is dry weight is 89 kg. He was started on Toprol succinate 150 mg twice daily, continue this as an outpatient. Initially was started on digoxin 0.125 mg continue as an outpatient. Rate control was finally achieved with addition of diltiazem 30 mg 3 times daily will be converting to Cardizem 120 mg XR on discharge. Acute on chronic CHF exacerbation On admission patient was taking 80 mg of Lasix daily as an outpatient. Given his significantly elevated weight, we are suspicious that the medication was not being absorbed secondary to wall edema. Hospitalist patient was transitioned to Bumex 1 mg daily and diuresed adequately. His dry weight is 89 kg. Continue Bumex 1 mg daily as an outpatient. Obtain daily weights if patient begins to increase may give additional dose of Bumex. Acute respiratory failure with hypoxia likely 2/2 CHF exacerbation and afib RVR Patient presented to the hospital on 2 L of oxygen, while hospitalized he increased his oxygen requirements to 1 L. Patient also requiring CPAP at night continue CPAP as outpatient. Abdominal distention Abdominal CT on admission: congestive failure/fluid overload, prostamegaly, richard dder wall thickening and infiltration of adjacent fat, cannot exclude cystitis cannot exclude malignancy.Suspect abdominal discomfort and distention which caused him to present to the hospital secondary to fluid overloaded status, furthermore the symptoms improved with diuresis. Based on these findings I believe the patient first gets accumulate fluid in his abdomen and then it spreads distally to his legs. Will use abdominal distention as a marker for fluid status Bladder wall thickening Admission CT was suspicious for bladder wall thickening and infiltration of the adjacent fat, cystitis versus malignancy. Patient's urine culture also grew out Proteus vulgaris he was treated with 5 days of ceftriaxone IV. Urology was consulted for the suspicious CT findings they identified long-standing bladder outlet obstruction, and recommend maintaining the Lopez for 5 to 7 days. On day 6, a trial of voids was attempted prior to patient's discharge and was successful. Urine cytology was obtained with the patient was hospitalized, demonstrating blood and acute inflammation. Rare urothelial cells with enlarged hyperchromatic nuclei with irregular nuclear borders. Differential includes reactive degenerative change versus atypical urothelial cells. Patient will follow-up with urology as an outpatient for cystoscopy. Appointment is arranged for 2 weeks from now Elevated troponin: Resolved -Likely secondary to demand ischemia trending troponins. Have stabilized. -Cardiology consulted they will consider coronary angiography as an outpatient. Type II diabetes mellitus While hospitalized patient's home metformin was held, his diabetes was managed through SSI insulin. On discharge his home metformin was resumed. Continue heart healthy diabetic diet. Hyperlipidemia: -Continue Fluvastatin CAD (coronary artery disease) -Remote h/o CABG -Continue Metoprolol and aspirin -Consider outpt coronary angio Sacral Ulcer Nursing alerted us to sacral ulcer have a centimeter by half centimeter placed the patch on it not concerning for infection. -Routine wound care FENa:DMII Code Status:DNR/DNI DVT PPX: Eli PT/OT: consulted -> SNF Dispo: SNF Alcides Vickers MD PGY 2, FCM This chart was completed utilizing [employer] voice recognition software. Grammatical errors, random word insertions, pronoun errors, and in complete sentences are an occasional consequence of the system. Any questions or concerns about the content, text, or information contained within the body of this dictation should be addressed directly to the physician for clarification. Total Time Total Time Spent Total Time Spent (In Minutes): >30 Discharge Plan Discharge Items Patient Disposition: Transfer [facility] Reason For Visit: A-FIB, RVR Discharge Diagnosis: Atrial fibrillation with rapid ventricular rate, CHF exacerbation, acute hypoxemic respiratory failure, urinary tract infection, suspicious findings on abdominal CT, urinary retention Activity: Resume your previous activity Non-emergency contact: Primary Care Provider Call non-emergency contact if: you have any medication questions Follow-up/Referrals: Moe Goldsmith [Primary Care Provider] - Diet: Carb Consistent or DM2 Ambulatory Orders: [place] CPAP rental-purchase (Routine) Timeframe: 1 Day Location: Determined by Patient Ordered By: Alcides Swift Attending Provider Instructions: 89yo M PMH CHF, CAD, HLD, T2DM admitted on 07/12/19 with CHF exacerbation with acute hypoxic respiratory failure and new afib. Atrial fibrillation with RVR Patient was started on a heparin drip and a Cardizem drip on admission. Cardizem gtt dc'd and heparin gtt converted to xarelto on 07/13. Initiated 250mcg digoxin due to elevated heart rates on 07/14/19. Has received full 1mg IV loading dosing; converted to PO dosing on 07/16. Patient is adequately diuresed during this admission, he is dry weight is 89 kg. He was started on Toprol succinate 150 mg twice daily, continue this as an outpatient. Initially was started on digoxin 0.125 mg continue as an outpatient. Rate control was finally achieved with addition of diltiazem 30 mg 3 times daily will be converting to Cardizem 120 mg XR on discharge. Acute on chronic CHF exacerbation On admission patient was taking 80 mg of Lasix daily as an outpatient. Given his significantly elevated weight, we are suspicious that the medication was not being absorbed secondary to wall edema. Hospitalist patient was transitioned to Bumex 1 mg daily and diuresed adequately. His dry weight is 89 kg. Continue Bumex 1 mg daily as an outpatient. Obtain daily weights if patient begins to increase may give additional dose of Bumex. Acute respiratory failure with hypoxia likely 2/2 CHF exacerbation and afib RVR Patient presented to the hospital on 2 L of oxygen, while hospitalized he increased his oxygen requirements to 1 L. Patient also requiring CPAP at night continue CPAP as outpatient. Abdominal distention Abdominal CT on admission: congestive failure/fluid overload, prostamegaly, bladder wall thickening and infiltration of adjacent fat, cannot exclude cystitis cannot exclude malignancy.Suspect abdominal discomfort and distention which caused him to present to the hospital secondary to fluid overloaded status, furthermore the symptoms improved with diuresis. Based on these findings I believe the patient first gets accumulate fluid in his abdomen and then it spreads distally to his legs. Will use abdominal distention as a marker for fluid status Bladder wall thickening Admission CT was suspicious for bladder wall thickening and infiltration of the adjacent fat, cystitis versus malignancy. Patient's urine culture also grew out Proteus vulgaris he was treated with 5 days of ceftriaxone IV. Urology was consulted for the suspicious CT findings they identified long-standing bladder outlet obstruction, and recommend maintaining the Lopez for 5 to 7 days. On day 6, a trial of voids was attempted prior to patient's discharge and was successful. Urine cytology was obtained with the patient was hospitalized, demonstrating blood and acute inflammation. Rare urothelial cells with enlarged hyperchromatic nuclei with irregular nuclear borders. Differential includes reactive degenerative change versus atypical urothelial cells. Patient will follow-up with urology as an outpatient for cystoscopy. Appointment is arranged for 2 weeks from now Elevated troponin: Resolved -Likely secondary to demand ischemia trending troponins. Have stabilized. -Cardiology consulted they will consider coronary angiography as an outpatient. Type II diabetes mellitus While hospitalized patient's home metformin was held, his diabetes was managed through SSI insulin. On discharge his home metformin was resumed. Continue heart healthy diabetic diet. Hyperlipidemia: -Continue Fluvastatin CAD (coronary artery disease) -Remote h/o CABG -Continue Metoprolol and aspirin -Consider outpt coronary angio Sacral Ulcer Nursing alerted us to sacral ulcer have a centimeter by half centimeter placed the patch on it not concerning for infection. -Routine wound care FENa:DMII Code Status:DNR/DNI DVT PPX: Xarelto PT/OT: consulted -> SNF Dispo: SNF Alcides Vickers MD PGY 2, FCM This chart was completed utilizing [employer] voice recognition software. Grammatical errors, random word insertions, pronoun errors, and in complete sentences are an occasional consequence of the system. Any questions or concerns about the content, text, or information contained within the body of this dictation should be addressed directly to the physician for clarification. Pending Studies at Discharge: No Stand-Alone Forms: [facility] Skilled Items Patient informed of condition?: Yes DNR: Yes Discharge Level of Care: Skilled Communicable Disease: No Discharge Prognosis: Improving Lines: None Urinary Catheter: Yes Medications and DC Order Prescriptions: New metoprolol succinate 50 mg Tablet Extended Release 24 Hr 150 mg PO BID 30 Days Qty: 180 RF: 0 tamsulosin 0.4 mg Capsule 0.4 mg PO HS 30 Days Qty: 30 RF: 0 digoxin 125 mcg (0.125 mg) Tablet 0.125 mg PO DAILY@1600 30 Days Qty: 30 RF: 0 Xarelto 20 mg Tablet 20 mg PO DAILY@1700 30 Days Qty: 30 RF: 0 bumetanide 1 mg Tablet 1 mg PO QAM 30 Days Qty: 30 RF: 0 diltiazem HCl 120 mg capsule,ext.rel 24h degradable 120 mg PO DAILY 30 Days Qty: 30 RF: 3 CPAP Supplies Misc .ROUTE .MEDSUPPLY Qty: 1 RF: 0 CPAP Machine Misc .ROUTE .MEDSUPPLY Qty: 1 RF: 0 Continued cyanocobalamin (vitamin B-12) [Vitamin B-12] 1,000 mcg Tablet 1,000 mcg PO 3XWK RF: 0 docusate sodium 100 mg Tablet 100 mg PO DAILY PRN (Reason: Constipation) RF: 0 acetaminophen [Tylenol] 325 mg Tablet 650 mg PO BID RF: 0 ascorbic acid (vitamin C) [Vitamin C] 500 mg Tablet Extended Release 500 mg PO Q2D RF: 0 aspirin 81 mg Tablet,Delayed Release (Dr/Ec) 81 mg PO DAILY RF: 0 ferrous sulfate 325 mg (65 mg iron) Tablet 325 mg PO Q2D RF: 0 finasteride 5 mg Tablet 5 mg PO DAILY RF: 0 omega 3-[id number]-fish oil [Fish Oil] 1,000 mg (120 mg-180 mg) Capsule 1 cap PO BID RF: 0 furosemide [Lasix] 80 mg Tablet 80 mg PO DAILY RF: 0 magnesium oxide 400 mg magnesium Tablet 400 mg PO BID RF: 0 metformin 500 mg Tablet 500 mg PO BID RF: 0 ipratropium-albuterol 0.5 mg-3 mg(2.5 mg base)/3 mL Solution For Nebulization 3 ml INHALATION Q4H RF: 0 multivitamin Tablet 1 tab PO 4XWK RF: 0 aluminum-magnesium hydroxide 200-200 mg/5 mL Suspension 20 ml PO Q6H PRN (Reason: Heartburn) RF: 0 potassium chloride 20 mEq Tablet Extended Release 20 meq PO TID RF: 0 saw palmetto 160 mg Capsule 160 mg PO DAILY RF: 0 acetaminophen [Tylenol] 325 mg Tablet 650 mg PO Q6H PRN (Reason: pain/fever) RF: 0 fluvastatin 80 mg Tablet Extended Release 24 Hr 80 mg PO HS RF: 0 Discontinued metoprolol succinate 50 mg Tablet Extended Release 24 Hr 50 mg PO BID RF: 0 Admission Data Admit Date/Time: 07/12/19 04:40 Attending Provider: Killian Bo Admit Provider: Betito Juarez Primary Care Provider: Moe Goldsmith Other Providers: Betito Juarez ; Todd Kulkarni ; Juan C Maldonado ; Blayne Thurman
--- NOTE | 2019-07-18 14:48 | Pharmacy Report ---
Pharmacy Glycemic Short Note 2 - Date of Service July 18, 2019 - Glycemic Short BSG Results (Last 24 hours): 07/17/19 07/17/19 07/18/19 16:10 20:38 06:41 Glucose 130 H POC Glucose 121 H 159 H 07/18/19 07/18/19 07:50 11:35 Glucose POC Glucose 128 H 171 H ASSESSMENT: * 89 year old admitted with afib started on heparin drip and diltiazem drip. PMHx significant for afib, hld, CAD. Type 2 diabetes managed only on metformin at home. Unknown A1C - no A1C's on prior admissions. Will order for tomorrow AM * Fasting BSG elevated at 208 mg/dL - metformin held on admission, will start novolog SSI this morning. Type 2 diet ordered 07/16: * Patient requiring about 20 units daily of insulin in the last 48 hrs * BSGs have been stable - will continue same CF/CF for now, will loosen CR later this evening as will restart metformin * Has not needed basal insulin as fasting BSGs have been w/in range 07/18 * Metformin restarted on 07/17, carb coverage removed * BSGs ranging from 109-171. Patient to be discharged, do not anticipate any significant changes PLAN FOR INPATIENT GLYCEMIC CONTROL: * Patient on metformin * Bolus insulin - loosen * NovoLog per scale ACHS or Q6hrs while NPO * Goal Range: Low 120 mg/dL - High 160 mg/dL * Correction Factor: 30 mg/dL/unit PLAN FOR DISCHARGE: * A1C of 6.9% indicates adequate glycemic control - would recommend continuation of metformin on discharge * Please note that the plan above was derived based on current level of insulin resistance and hospital stress. These recommendations are appropriate for inpatient admission only. Plan of care upon discharge will need to be reassessed to avoid potential outpatient hypo/hyperglycemia. Thank you.
[2019-07-18] MEDS: RIVAROXABAN 20 MG TAB PO SCH (17:23)
[2019-07-18] MEDS: DIGOXIN 0.125 MG TAB PO SCH (17:23)
[2019-07-18] MEDS: cefTRIAXone SODIUM 2,000 MG in DEXTROSE 5% 50 ML IV SCH (17:24)
[2019-07-18] MEDS: TAMSULOSIN HCL 0.4 MG CAP PO SCH (21:02)
[2019-07-18] MEDS: FLUVASTATIN SODIUM 20 MG CAP PO SCH (21:03)
[2019-07-19] MEDS: ALBUT/IPRATROP 3MG/0.5MG NEB 3 ML VIAL NEB SCH ×4 (01:22→19:25)
[2019-07-19] MEDS: INSULIN ASPART 100 UNITS/ML 3 ML PEN SC SCH ×4 (08:03→21:23)
[2019-07-19] MEDS: FERROUS SULFATE 325 MG TAB PO SCH (08:04)
[2019-07-19] MEDS: METFORMIN HCL 500 MG TAB PO SCH ×2 (08:04→17:49)
[2019-07-19] MEDS: dilTIAZem HCL 120 MG CAPCR PO SCH (08:05)
[2019-07-19] MEDS: BUMETANIDE 1 MG TAB PO SCH (08:05)
[2019-07-19] MEDS: FINASTERIDE 5 MG TAB PO SCH (08:05)
[2019-07-19] MEDS: MAGNESIUM OXIDE 400 MG TAB PO SCH ×2 (08:06→21:21)
[2019-07-19] MEDS: POTASSIUM CHLORIDE 20 MEQ TABCR PO SCH ×3 (08:06→21:21)
[2019-07-19] MEDS: METOPROLOL SUCC 50MG EXT REL TAB PO SCH ×2 (08:07→21:21)
--- NOTE | 2019-07-19 15:07 | Family Medicine Progress Note ---
Date of Service July 19, 2019 Assessment & Plan (1) Atrial fibrillation with RVR: Atrial fibrillation with RVR Patient was started on a heparin drip and a Cardizem drip on admission. Cardizem gtt dc'd and heparin gtt converted to xarelto on 07/13. Initiated 250mcg digoxin due to elevated heart rates on 07/14/19. Has received full 1mg IV loading dosing; converted to PO dosing on 07/16. -Cardiology consulted, following recs -Rate control achieved with diltiazem, transition to long-acting formulation 120 mg daily -Continue digoxin -Continue metoprolol -Continue anticoagulation -Plan to follow-up in the outpatient setting for medication titration -Continue fluvastatin, metoprolol, aspirin -At some point the future consider the possibility of ischemic evaluation, however currently symptomatic -Patient has been diuresing well, -Continue Bumex 1 mg daily -Dry weight 89 kg Acute on chronic CHF exacerbation Patient takes 80 mg of Lasix daily as an outpatient. Will DC on discharge in favor of Bumex 1 mg daily. On July 18, 2019 patient achieved euvolemia, new dry weight will be considered to be 89 kg we will continue 1 mg Bumex on discharge. -Dry weight goal 89 kg -93.8->90.0->90.4->89.6->90.2->89.6->91.2 -Bumex 1 mg daily, -Strict I/O's -Echo, as above: Moderate global hypokinesis, Left and right atrium mildly dilated Acute respiratory failure with hypoxia likely 2/2 CHF exacerbation and afib RVR Currently on 1 L, this may represent his baseline this patient was admitted to the hospital on 2 L of O2 -Wean O2 as tolerated -Management as above -Duonebs prn Abdominal distention Admission CT was suspicious for bladder wall thickening and infiltration of the adjacent fat, cystitis versus malignancy. Patient's urine culture also grew out Proteus vulgaris he was treated with 5 days of ceftriaxone IV. Urology was consulted for the suspicious CT findings they identified long-standing bladder outlet obstruction, and recommend maintaining the Deshpande for 5 to 7 days. Discharge date was day 6, a trial of voids was attempted prior to patient's discharge and was unsuccessful, Deshpande catheter was subsequently replaced. Urine cytology was obtained with the patient was hospitalized, demonstrating blood and acute inflammation. Rare urothelial cells with enlarged hyperchromatic nuclei with irregular nuclear borders. Differential includes reactive degenerative jaquelin nge versus atypical urothelial cells. Patient will follow-up with urology as an outpatient for cystoscopy. Appointment is arranged for 2 weeks from now Bladder wall thickening Admission CT was suspicious for bladder wall thickening and infiltration of the adjacent fat, cystitis versus malignancy. Patient's urine culture also grew out Proteus vulgaris he was treated with 5 days of ceftriaxone IV. Urology was consulted for the suspicious CT findings they identified long-standing bladder outlet obstruction, and recommend maintaining the Deshpande for 5 to 7 days. Discha rge date was day 6, a trial of voids was attempted prior to patient's discharge and was unsuccessful, Deshpande catheter was subsequently replaced. Urine cytology was obtained with the patient was hospitalized, demonstrating blood and acute inflammation. Rare urothelial cells with enlarged hyperchromatic nuclei with irregular nuclear borders. Differential includes reactive degenerative change versus atypical urothelial cells. Patient will follow-up with urology as an outpatient for cystoscopy. Appointment is arranged for 2 weeks from now Elevated troponin: Resolved -Likely secondary to demand ischemia trending troponins. Have stabilized. -Consider coronary angiography, deferred to outpatient Type II diabetes mellitus -Heart healthy and diabetic diet -Hold Metformin -glycemic consult placed Hyperlipidemia: -Continue Fluvastatin CAD (coronary artery disease) -Remote h/o CABG -Continue Metoprolol and aspirin -Consider outpt coronary angio Sacral Ulcer Nursing alerted us to sacral ulcer have a centimeter by half centimeter placed the patch on it not concerning for infection. -Routine wound care Muscle Spasm Appreciated muscle spasm on physical exam his left leg. Recommended stretching exercises. FENa:DMII Code Status:DNR/DNI DVT PPX: Xarelto PT/OT: as pt improves Dispo:d/c pending coordination of care, pt denied snf Alcides Vickers MD PGY 2, FCM This chart was completed utilizing [employer] voice recognition software. Grammatical errors, random word insertions, pronoun errors, and in complete sentences are an occasional consequence of the system. Any questions or concerns about the content, text, or information contained within the body of this dictation should be addressed directly to the physician for clarification. Supervising Physician Co-Signing Physician Notes Patient seen and examined with Dr. Vickers. I agree with their exam findings, review of systems, assessment and plan. I have personally reviewed the lab work and imaging from today. patient doing well, voiding all day, no issues ambulating better unfortunately he was denied SNF due to his improved mobility will look to go to [facility] but with medical assistance, will need eval by office of aging eating well, no chest pain/pressure, no dyspnea Exam: WDWN male, no distress, rales in bases, normal respiratory effort irreg irreg, normal rates, no murmurs, trace edema - Atrial fibrillation with RVR: rates well controlled consistently, converted to Toprol 150mg BID, continue on Digoxin continue Xarelto for anticoagulation continue Diltiazem for rate control per Dr. Kulkarni, working well - Acute on chronic heart failure, preserved EF: much improved, continue Bumex 1mg PO daily, net negative every day, down 10 liters for the admission examines euvolemic, weight down to baseline - Urinary retention: had deshpande for 7 days, void trial on 07/18 was successful continue to monitor for retention - Pressure ulcer sacrum stage I, POA: wound care consulted, preventative measures, encourage activity Subjective Patient doing well this morning lying in bed getting ready for PT in no acute distress. Patient reports no acute events overnight, he is jovial and joking with the team. He is tolerating his diet, he passes trial of voids and is voiding on his own, stooling, and sleeping. Patient is eager for discharge. Acute concerns are present are related to coordination of care, patient was designed SNF, we are attempting to obtain medical assistance. All questions answered. Physical Exam Physical Exam: General: Elderly gentleman in no acute distress HEENT: Normocephalic atraumatic Neck: Normal to visual inspection Cardiac: Irregularly irregular approximately 85 bpm. I did not appreciate any significant murmurs rubs or gallops, negative JVD, negative calf tenderness, neg pedal edema bilaterally Respiratory: Rales present in bibasilar lungs, symmetrical chest rise, no increased work of breathing GI: Significantly less distended, no longer tender to palpation, bowel sounds present MSK: Moves all extremities, endorsed left leg pain, appreciated muscle spasm on physical exam Neuro: Alert and oriented x4 Psych: Calm, cooperative Results & Data Vital Signs (Past 12 Hours) Vital Signs Temp Pulse Pulse Resp BP BP Pulse Ox 07/19/19 11:20 36.8 C 76 16 113/69 93 07/19/19 07:30 36.3 C L 83 16 130/55 L 91 07/19/19 07:00 70 07/19/19 06:49 63 18 91 Laboratory Results 07/19/19 07/19/19 07/18/19 Range/Units 11:24 07:32 20:44 POC Glucose 112 H 113 H 135 H (70-99) 07/18/19 Range/Units 16:24 POC Glucose 97 (70-99) Medications Administered Current Inpatient Medications Acetaminophen (Tylenol) 650 mg PO Q4H PRN PRN Reason: mild pain or fever Stop: 08/11/19 05:45 Last Admin: 07/18/19 22:41 Dose: 650 mg Documented by: Albuterol (Duoneb) 3 ml NEB Q6R [facility] Stop: 08/11/19 06:59 Last Admin: 07/19/19 13:20 Dose: Not Given Documented by: Bumetanide (Bumex) 1 mg PO QAM [facility] Stop: 08/17/19 08:59 Last Admin: 07/19/19 08:05 Dose: 1 mg Documented by: Dextrose (Dextrose 50%) 25 - 50 ml IV UD PRN; Protocol PRN Reason: Hypoglycemia Protocol Stop: 08/11/19 05:45 Digoxin (Lanoxin) 0.125 mg PO DAILY@1600 [facility] Stop: 08/15/19 15:59 Last Admin: 07/18/19 17:23 Dose: 0.125 mg Documented by: Diltiazem HCl (Cardizem Cd) 120 mg PO QAM [facility] Stop: 08/18/19 08:59 Last Admin: 07/19/19 08:05 Dose: 120 mg Documented by: Ferrous Sulfate (Feosol) 325 mg PO Q2D@0900 [facility] Stop: 08/12/19 08:59 Last Admin: 07/19/19 08:04 Dose: 325 mg Documented by: Finasteride (Proscar) 5 mg PO DAILY [facility] Stop: 08/11/19 08:59 Last Admin: 07/19/19 08:05 Dose: 5 mg Documented by: Fluvastatin Sodium (Lescol) 80 mg PO HS [facility] Stop: 08/11/19 20:59 Last Admin: 07/18/19 21:03 Dose: 80 mg Documented by: Glucagon (Glucagen) 1 mg SQ UD PRN; Protocol PRN Reason: Hypoglycemia Protocol Stop: 08/11/19 05:45 Glucose (Glucose 40%) 15 - 30 gm PO UD PRN; Protocol PRN Reason: Hypoglycemia Protocol Stop: 08/11/19 05:45 Glucose (Dex4 Glucose) 4 - 8 tabs PO UD PRN; Protocol PRN Reason: Hypoglycemia Protocol Stop: 08/11/19 05:45 Ceftriaxone Sodium 2,000 mg/ (Dextrose) 70 mls @ 100 mls/hr IV Q24H [facility]; Protocol Stop: 07/22/19 14:59 Last Infusion: 07/18/19 18:23 Dose: Infused Documented by: Insulin Aspart (Novolog Flexpen) 0 units SC ACHS [facility]; Protocol Stop: 08/11/19 07:29 Last Admin: 07/19/19 12:10 Dose: Not Given Documented by: Lidocaine HCl (Xylocaine 2% Jelly) 5 ml EXT TID PRN PRN Reason: urethra pain Stop: 08/14/19 08:59 Last Admin: 07/15/19 14:36 Dose: 5 ml Documented by: Magnesium Oxide (Mag-Ox) 400 mg PO BID [facility] Stop: 08/11/19 08:59 Last Admin: 07/19/19 08:06 Dose: 400 mg Documented by: Metformin HCl (Glucophage) 500 mg PO BIDM [facility]; Protocol Stop: 08/15/19 16:59 Last Admin: 07/19/19 08:04 Dose: 500 mg Documented by: Metoprolol Succinate (Toprol Xl) 150 mg PO BID [facility] Stop: 08/15/19 10:59 Last Admin: 07/19/19 08:07 Dose: 150 mg Documented by: Miscellaneous (Carbohydrates For Hypoglycemia) 15 - 30 gm PO UD PRN PRN Reason: Hypoglycemia Treatment Stop: 08/11/19 05:45 Miscellaneous Information (Consult Glycemic Management Pharmacy) 1 ea N/A UD PRN PRN Reason: Consult Stop: 08/11/19 08:34 Ondansetron HCl (Zofran) 4 mg IV Q6H PRN PRN Reason: nausea or vomiting Stop: 08/11/19 05:45 Potassium Chloride (Klor-Con M20) 20 meq PO TID [facility] Stop: 08/11/19 08:59 Last Admin: 07/19/19 14:48 Dose: 20 meq Documented by: Rivaroxaban (Xarelto) 20 mg PO DAILY@1700 [facility] Stop: 08/12/19 16:39 Last Admin: 07/18/19 17:23 Dose: 20 mg Documented by: Tamsulosin HCl (Flomax) 0.4 mg PO HS [facility] Stop: 08/11/19 20:59 Last Admin: 07/18/19 21:02 Dose: 0.4 mg Documented by: PG Care Time/CCT Total # of Minutes Spent Total Time Spent with Patient: Total time spent is greater than 50% in coordination of care (as documented) at patient's floor/unit and/or counseling patient: Resident Activity Tracking Resident Involvement: Resident Care Provided Care Provided: Adult Hospital Medicine
[2019-07-19] MEDS: cefTRIAXone SODIUM 2,000 MG in DEXTROSE 5% 50 ML IV SCH (15:24)
[2019-07-19] MEDS: DIGOXIN 0.125 MG TAB PO SCH (15:25)
[2019-07-19] MEDS: RIVAROXABAN 20 MG TAB PO SCH (17:48)
[2019-07-19] MEDS: FLUVASTATIN SODIUM 20 MG CAP PO SCH (21:21)
[2019-07-19] MEDS: TAMSULOSIN HCL 0.4 MG CAP PO SCH (21:21)
[2019-07-20] MEDS: ALBUT/IPRATROP 3MG/0.5MG NEB 3 ML VIAL NEB SCH ×4 (01:13→19:26)
[2019-07-20] MEDS: ACETAMINOPHEN 325 MG TAB PO PRN (04:08)
--- NOTE | 2019-07-20 06:43 | XRay Report ---
XR chest 1V portable CLINICAL HISTORY: sob dyspnea COMPARISON STUDY: 07/12/2019 FINDINGS: Moderate stable cardiomegaly. Findings of pulmonary edema stable. Trace left basilar pleura l fluid slightly increased. IMPRESSION: Findings of stable pulmonary edema. Slight increase in pleural reactive change versus pl eural effusion left base. The above report was generated using voice recognition software. It may contain grammatical, syntax or spelling errors. Electronically signed by: Luisito Castellon M.D. 07/20/2019 6:42 AM
[2019-07-20] MEDS: INSULIN ASPART 100 UNITS/ML 3 ML PEN SC SCH ×4 (07:58→22:00)
[2019-07-20] MEDS: POTASSIUM CHLORIDE 20 MEQ TABCR PO SCH ×3 (07:58→21:25)
[2019-07-20] MEDS: MAGNESIUM OXIDE 400 MG TAB PO SCH ×2 (07:59→21:26)
[2019-07-20] MEDS: METFORMIN HCL 500 MG TAB PO SCH ×2 (07:59→17:17)
[2019-07-20] MEDS: BUMETANIDE 1 MG TAB PO SCH (07:59)
[2019-07-20] MEDS: METOPROLOL SUCC 50MG EXT REL TAB PO SCH ×2 (07:59→21:28)
[2019-07-20] MEDS: FINASTERIDE 5 MG TAB PO SCH (07:59)
[2019-07-20] MEDS: dilTIAZem HCL 120 MG CAPCR PO SCH (07:59)
--- NOTE | 2019-07-20 10:36 | Family Medicine Progress Note ---
Date of Service July 20, 2019 Assessment & Plan (1) Atrial fibrillation with RVR: Atrial fibrillation with RVR Patient was started on a heparin drip and a Cardizem drip on admission. Cardizem gtt dc'd and heparin gtt converted to xarelto on 07/13. Initiated 250mcg digoxin due to elevated heart rates on 07/14/19. Has received full 1mg IV loading dosing; converted to PO dosing on 07/16. -Cardiology consulted, following recs -Rate control achieved with diltiazem, transition to long-acting formulation 120 mg daily -Continue digoxin, metoprolol, fluvastatin, and anticoagulation -Plan to follow-up in the outpatient setting for medication titration -At some point the future consider the possibility of ischemic evaluation, however currently symptomatic -Patient has been diuresing well, -Continue Bumex 1 mg daily -Dry weight 89 kg Acute on chronic CHF exacerbation Patient takes 80 mg of Lasix daily as an outpatient. Will DC on discharge in favor of Bumex 1 mg daily. On July 18, 2019 patient achieved euvolemia, new dry weight will be considered to be 89 kg we will continue 1 mg Bumex on discharge. -Dry weight goal 89 kg -93.8->90.0->90.4->89.6->90.2->89.6->91.2 -Bumex 1 mg daily, -Strict I/O's -Echo, as above: Moderate global hypokinesis, Left and right atrium mildly dilated Acute respiratory failure with hypoxia likely 2/2 CHF exacerbation and afib RVR Currently on 1 L, this may represent his baseline this patient was admitted to the hospital on 2 L of O2 -Wean O2 as tolerated -Management as above -Duonebs prn Abdominal distention Admission CT was suspicious for bladder wall thickening and infiltration of the adjacent fat, cystitis versus malignancy. Patient's urine culture also grew out Proteus vulgaris he was treated with 5 days of ceftriaxone IV. Urology was consulted for the suspicious CT findings they identified long-standing bladder outlet obstruction, and recommend maintaining the Lopez for 5 to 7 days. Discharge date was day 6, a trial of voids was attempted prior to patient's discharge and was unsuccessful, Lopez catheter was subsequently replaced. Urine cytology was obtained with the patient was hospitalized, demonstrating blood and acute inflammation. Rare urothelial cells with enlarged hyperchromatic nuclei with irregular nuclear borders. Differential includes reactive degenerative change versus atypical urothelial cells. Patient will follow-up with urology as an outpatient for cystoscopy. Appointment is arranged for 2 weeks from now Bladder wall thickening Admission CT was suspicious for bladder wall thickening and infiltration of the adjacent fat, cystitis versus malignancy. Patient's urine culture also grew out Proteus vulgaris he was treated with 5 days of ceftriaxone IV. Urology was consulted for the suspicious CT findings they identified long-standing bladder outlet obstruction, and recommend maintaining the Lopez for 5 to 7 days. Discharge date was day 6, a trial of voids was attempted prior to patient's discharge and was unsuccessful, Lopez catheter was subsequently replaced. Urine cytology was obtained with the patient was hospitalized, demonstrating blood and acute inflammation. Rare urothelial cells with enlarged hyperchromatic nuclei with irregular nuclear borders. Differential includes reactive degenerative change versus atypical urothelial cells. Patient will follow-up with urology as an outpatient for cystoscopy. Appointment is arranged for 2 weeks from now Elevated troponin: Resolved -Likely secondary to demand ischemia. Have stabilized. -Consider coronary angiography, deferred to outpatient Type II diabetes mellitus -Heart healthy and diabetic diet -Hold Metformin -glycemic consult placed Hyperlipidemia: -Continue Fluvastatin CAD (coronary artery disease) -Remote h/o CABG -Continue Metoprolol and aspirin -Consider outpt coronary angio Sacral Ulcer Nursing alerted us to sacral ulcer have a centimeter by half centimeter placed the patch on it not concerning for infection. -Routine wound care Muscle Spasm resolved Appreciated muscle spasm on physical exam his left leg. Recommended stretching exercises. FENa:DMII Code Status:DNR/DNI DVT PPX: Xarelto PT/OT: as pt improves Dispo:d/c pending coordination of care, pt denied snf Alcides Vickers MD PGY 2, FCM This chart was completed utilizing [employer] voice recognition software. Grammatical errors, random word insertions, pronoun errors, and in complete sentences are an occasional consequence of the system. Any questions or concerns about the content, text, or information contained within the body of this dictation should be addressed directly to the physician for clarification. Subjective Patient sitting upright in bed this morning in good spirits in no acute distress. Patient looks good and feels well, eager for discharge. Patient voiding, stooling, tolerating his diet, sleeping well. Acute concerns are present related to discharge planning needs some forms completed and the office of aging involvement. Otherwise patient continues to improve from a clinical standpoint no acute concerns are present, all questions answered. Physical Exam Physical Exam: General: Elderly gentleman in no acute distress HEENT: Normocephalic atraumatic Neck: Normal to visual inspection Cardiac: Irregularly irregular approximately 65 bpm. I did not appreciate any significant murmurs rubs or gallops, negative JVD, negative calf tenderness, 1+ pedal edema bilaterally Respiratory: Clear to auscultation bilaterally, symmetrical chest rise, no increased work of breathing GI: Significantly less distended, no longer tender to palpation, bowel sounds present MSK: Moves all extremities, endorsed left leg pain, appreciated muscle spasm on physical exam Neuro: Alert and oriented x4 Psych: Calm, cooperative Results & Data Vital Signs (Past 12 Hours) Vital Signs Temp Pulse Pulse Resp BP BP Pulse Ox 07/20/19 07:45 65 14 96 07/20/19 07:38 36.4 C L 62 16 122/66 95 07/20/19 05:17 36.6 C 65 22 131/75 94 07/20/19 04:14 82 22 92 07/20/19 01:13 66 18 97 07/19/19 23:42 36.6 C 89 19 145/66 H 96 07/19/19 23:31 96 H 22 95 Laboratory Results 07/20/19 07/20/19 07/19/19 Range/Units 07:26 05:45 21:01 POC Glucose 137 H 123 H 124 H (70-99) 07/19/19 07/19/19 Range/Units 16:11 11:24 POC Glucose 142 H 112 H (70-99) Medications Administered Current Inpatient Medications Acetaminophen (Tylenol) 650 mg PO Q4H PRN PRN Reason: mild pain or fever Stop: 08/11/19 05:45 Last Admin: 07/20/19 04:08 Dose: 650 mg Documented by: Albuterol (Duoneb) 3 ml NEB Q6R [facility] Stop: 08/11/19 06:59 Last Admin: 07/20/19 07:45 Dose: 3 ml Documented by: Bumetanide (Bumex) 1 mg PO QAM [facility] Stop: 08/17/19 08:59 Last Admin: 07/20/19 07:59 Dose: 1 mg Documented by: Dextrose (Dextrose 50%) 25 - 50 ml IV UD PRN; Protocol PRN Reason: Hypoglycemia Protocol Stop: 08/11/19 05:45 Digoxin (Lanoxin) 0.125 mg PO DAILY@1600 [facility] Stop: 08/15/19 15:59 Last Admin: 07/19/19 15:25 Dose: 0.125 mg Documented by: Diltiazem HCl (Cardizem Cd) 120 mg PO QAM [facility] Stop: 08/18/19 08:59 Last Admin: 07/20/19 07:59 Dose: 120 mg Documented by: Ferrous Sulfate (Feosol) 325 mg PO Q2D@0900 [facility] Stop: 08/12/19 08:59 Last Admin: 07/19/19 08:04 Dose: 325 mg Documented by: Finasteride (Proscar) 5 mg PO DAILY [facility] Stop: 08/11/19 08:59 Last Admin: 07/20/19 07:59 Dose: 5 mg Documented by: Fluvastatin Sodium (Lescol) 80 mg PO HS [facility] Stop: 08/11/19 20:59 Last Admin: 07/19/19 21:21 Dose: 80 mg Documented by: Glucagon (Glucagen) 1 mg SQ UD PRN; Protocol PRN Reason: Hypoglycemia Protocol Stop: 08/11/19 05:45 Glucose (Glucose 40%) 15 - 30 gm PO UD PRN; Protocol PRN Reason: Hypoglycemia Protocol Stop: 08/11/19 05:45 Glucose (Dex4 Glucose) 4 - 8 tabs PO UD PRN; Protocol PRN Reason: Hypoglycemia Protocol Stop: 08/11/19 05:45 Ceftriaxone Sodium 2,000 mg/ (Dextrose) 70 mls @ 100 mls/hr IV Q24H [facility]; Protocol Stop: 07/22/19 14:59 Last Infusion: 07/19/19 16:06 Dose: Infused Documented by: Insulin Aspart (Novolog Flexpen) 0 units SC ACHS [facility]; Protocol Stop: 08/11/19 07:29 Last Admin: 07/20/19 07:58 Dose: Not Given Documented by: Lidocaine HCl (Xylocaine 2% Jelly) 5 ml EXT TID PRN PRN Reason: urethra pain Stop: 08/14/19 08:59 Last Admin: 07/15/19 14:36 Dose: 5 ml Documented by: Magnesium Oxide (Mag-Ox) 400 mg PO BID [facility] Stop: 08/11/19 08:59 Last Admin: 07/20/19 07:59 Dose: 400 mg Documented by: Metformin [facility] (Glucophage) [facility] [place] Protocol Stop: 08/15/19 16:59 Last Admin: 07/20/19 07:59 Dose: 500 mg Documented by: Metoprolol Succinate (Toprol Xl) 150 mg PO BID [facility] Stop: 08/15/19 10:59 Last Admin: 07/20/19 07:59 Dose: 150 mg Documented by: Miscellaneous (Carbohydrates For Hypoglycemia) 15 - 30 gm PO UD PRN PRN Reason: Hypoglycemia Treatment Stop: 08/11/19 05:45 Miscellaneous Information (Consult Glycemic Management Pharmacy) 1 ea N/A UD PRN PRN Reason: Consult Stop: 08/11/19 08:34 Ondansetron HCl (Zofran) 4 mg IV Q6H PRN PRN Reason: nausea or vomiting Stop: 08/11/19 05:45 Potassium Chloride (Klor-Con M20) 20 meq PO TID [facility] Stop: 08/11/19 08:59 Last Admin: 07/20/19 07:58 Dose: 20 meq Documented by: Rivaroxaban (Xarelto) 20 mg PO DAILY@1700 [facility] Stop: 08/12/19 16:39 Last Admin: 07/19/19 17:48 Dose: 20 mg Documented by: Tamsulosin HCl (Flomax) 0.4 mg PO HS [facility] Stop: 08/11/19 20:59 Last Admin: 07/19/19 21:21 Dose: 0.4 mg Documented by: PG Care Time/CCT Total # of Minutes Spent Total Time Spent with Patient: Total time spent is greater than 50% in coordination of care (as documented) at patient's floor/unit and/or counseling patient: Resident Activity Tracking Resident Involvement: Resident Care Provided Care Provided: Adult Hospital Medicine
[2019-07-20] MEDS ORDERED: BUMETANIDE 1 MG TAB PO ONE (11:15)
--- NOTE | 2019-07-20 12:35 | Pharmacy Report ---
Pharmacy Glycemic Short Note 2 - Date of Service July 20, 2019 - Glycemic Short BSG Results (Last 24 hours): 07/19/19 07/19/19 07/20/19 16:11 21:01 05:45 POC Glucose 142 H 124 H 123 H 07/20/19 07/20/19 07:26 11:48 POC Glucose 137 H 113 H OUTPATIENT GLYCEMIC REGIMEN: * Metformin 500 mg BID * A1c 6.9% on 07/13/19 ASSESSMENT: 07/16: * Patient requiring about 20 units daily of insulin in the last 48 hrs * BSGs have been stable - will continue same CF/CF for now, will loosen CR later this evening as will restart metformin * Has not needed basal insulin as fasting BSGs have been w/in range 07/18 * Metformin restarted on 07/17, carb coverage removed * BSGs ranging from 109-171. Patient to be discharged, do not anticipate any significant changes 07/19 * BSGs remain stable. Patient only requiring metformin. No correctional insulin necessary * Alerted provider that metformin was resumed a few days ago in preparation for discharge * Bumex to be increased and renal function monitored to make sure patient can tolerate. Will monitor to make sure metformin is safe to continue as well. * Provider would like pharmacy to continue to manage glycemic control PLAN FOR INPATIENT GLYCEMIC CONTROL: * Continue metformin 500 mg BID * Bolus insulin - no change * NovoLog per scale ACHS or Q6hrs while NPO * Goal Range: Low 120 mg/dL - High 160 mg/dL * Correction Factor: 30 mg/dL/unit PLAN FOR DISCHARGE: * A1C of 6.9% indicates adequate glycemic control - would recommend continuation of metformin on discharge Thank you.
[2019-07-20] MEDS: cefTRIAXone SODIUM 2,000 MG in DEXTROSE 5% 50 ML IV SCH (14:25)
[2019-07-20] MEDS: DIGOXIN 0.125 MG TAB PO SCH (16:10)
[2019-07-20] MEDS: RIVAROXABAN 20 MG TAB PO SCH (17:17)
[2019-07-20] MEDS: TAMSULOSIN HCL 0.4 MG CAP PO SCH (21:25)
[2019-07-20] MEDS: FLUVASTATIN SODIUM 20 MG CAP PO SCH (21:26)
[2019-07-21] MEDS: ALBUT/IPRATROP 3MG/0.5MG NEB 3 ML VIAL NEB SCH ×4 (01:14→19:12)
[2019-07-21 07:29] LABS: BUN Creatinine Ratio 26.3 (10-20); Calcium 8.7 mg/dl (8.5-10.1); Creatinine Clr Calc Pharmacy 53.6 ml/min; Est GFR (African American) 80.5; Est GFR (Non-African American) 69.4; Potassium 4.1 mmol/L (3.5-5.1)
[2019-07-21] MEDS: BUMETANIDE 1 MG TAB PO SCH (07:55)
[2019-07-21] MEDS: dilTIAZem HCL 120 MG CAPCR PO SCH (07:56)
[2019-07-21] MEDS: FERROUS SULFATE 325 MG TAB PO SCH (07:56)
[2019-07-21] MEDS: POTASSIUM CHLORIDE 20 MEQ TABCR PO SCH ×3 (07:56→20:45)
[2019-07-21] MEDS: FINASTERIDE 5 MG TAB PO SCH (07:57)
[2019-07-21] MEDS: METOPROLOL SUCC 50MG EXT REL TAB PO SCH ×2 (07:57→20:44)
[2019-07-21] MEDS: MAGNESIUM OXIDE 400 MG TAB PO SCH ×2 (07:57→20:46)
[2019-07-21] MEDS: INSULIN ASPART 100 UNITS/ML 3 ML PEN SC SCH ×4 (08:14→21:06)
[2019-07-21] MEDS: METFORMIN HCL 500 MG TAB PO SCH ×2 (08:14→17:04)
--- NOTE | 2019-07-21 11:08 | Family Medicine Progress Note ---
Date of Service July 21, 2019 Assessment & Plan (1) Atrial fibrillation with RVR: Atrial fibrillation with RVR Patient was started on a heparin drip and a Cardizem drip on admission. Cardizem gtt dc'd and heparin gtt converted to xarelto on 07/13. Initiated 250mcg digoxin due to elevated heart rates on 07/14/19. Has received full 1mg IV loading dosing; converted to PO dosing on 07/16. -Cardiology consulted, following recs -Rate control achieved with diltiazem, transition to long-acting formulation 120 mg daily -Continue digoxin, metoprolol, fluvastatin, and anticoagulation -Plan to follow-up in the outpatient setting for medication titration -At some point the future consider the possibility of ischemic evaluation, however currently symptomatic -Patient has been diuresing well, -Dry weight 89 kg Acute on chronic CHF exacerbation Patient takes 80 mg of Lasix daily as an outpatient. Will DC on discharge in favor of Bumex 1 mg daily. On July 18, 2019 patient achieved euvolemia, new dry weight will be considered to be 89 kg we will continue 1 mg Bumex on discharge. -Dry weight goal 89 kg -93.8->90.0->90.4->89.6->90.2->89.6->91.2->91.4 -Bumex 2 mg daily, -Potassium 40 M EQ PRN based upon BMP secondary to loop diuretics -Strict I/O's -Echo, as above: Moderate global hypokinesis, Left and right atrium mildly dilated Acute respiratory failure with hypoxia likely 2/2 CHF exacerbation and afib RVR Currently on 1 L, this may represent his baseline this patient was admitted to the hospital on 2 L of O2 -Wean O2 as tolerated -Management as above -Duonebs prn Abdominal distention Admission CT was suspicious for bladder wall thickening and infiltration of the adjacent fat, cystitis versus malignancy. Patient's urine culture also grew out Proteus vulgaris he was treated with 5 days of ceftriaxone IV. Urology was consulted for the suspicious CT findings they identified long-standing bladder outlet obstruction, and recommend maintaining the Deshpande for 5 to 7 days. Di scharge date was day 6, a trial of voids was attempted prior to patient's discharge and was unsuccessful, Deshpande catheter was subsequently replaced. Urine cytology was obtained with the patient was hospitalized, demonstrating blood and acute inflammation. Rare urothelial cells with enlarged hyperchromatic nuclei with irregular nuclear borders. Differential includes reactive degenerative change versus atypical urothelial cells. Patient will follow-up with urology as an outpatient for cystoscopy. Appointment is arranged for 2 weeks from now Bladder wall thickening Admission CT was suspicious for bladder wall thickening and infiltration of the adjacent fat, cystitis versus malignancy. Patient's urine culture also grew out Proteus vulgaris he was treated with 5 days of ceftriaxone IV. Urology was consulted for the suspicious CT findings they identified long-standing bladder outlet obstruction, and recommend maintaining the Deshpande for 5 to 7 days. Discharge date was day 6, a trial of voids was attempted prior to patient's discharge and was unsuccessful, Deshpande catheter was subsequently replaced. Urine cytology was obtained with the patient was hospitalized, demonstrating blood and acute inflammation. Rare urothelial cells with enlarged hyperchromatic nuclei with irregular nuclear borders. Differential includes reactive degenerative change versus atypical urothelial cells. Patient will follow-up with urology as an outpatient for cystoscopy. Appointment is arranged for 2 weeks from now Elevated troponin: Resolved -Likely secondary to demand ischemia. Have stabilized. -Consider coronary angiography, deferred to outpatient Type II diabetes mellitus -Heart healthy and diabetic diet -Resumed Metformin -glycemic consult placed Hyperlipidemia: -Continue Fluvastatin CAD (coronary artery disease) -Remote h/o CABG -Continue Metoprolol and aspirin -Consider outpt coronary angio Sacral Ulcer Nursing alerted us to sacral ulcer have a centimeter by half centimeter placed the patch on it not concerning for infection. -Routine wound care Muscle Spasm resolved Appreciated muscle spasm on physical exam his left leg. Recommended stretching exercises. FENa:DMII Code Status:DNR/DNI DVT PPX: Xarelto PT/OT: as pt improves Dispo:d/c pending coordination of care, pt denied snf Alcides Vickers MD PGY 2, FCM This chart was completed utilizing [employer] CK1 voice recognition software. Grammatical errors, random word insertions, pronoun errors, and in complete sentences are an occasional consequence of the system. Any questions or concerns about the content, text, or information contained within the body of this dictation should be addressed directly to the physician for clarification. Supervising Physician Co-Signing Physician Notes Patient seen and examined with Dr. Vickers. I agree with their exam findings, review of systems, assessment and plan. I have personally reviewed the lab work and imaging from today. no change in respiratory status, vitals stable eating really well, moving bowels, urinating fine after deshpande removal discussed plans for discharge after the weekend Exam: WDWN male, no distress, rales in bases, normal respiratory effort irreg irreg, normal rates, no murmurs, +1 edema bilaterally - Atrial fibrillation with RVR: rates well controlled consistently, converted to Toprol 150mg BID, continue on Digoxin continue Xarelto for anticoagulation continue Diltiazem for rate control per Dr. Kulkarni, working well - Acute on chronic heart failure, preserved EF: much improved, continue Bumex 2mg PO daily, fluid restriction on discharge down 10 liters for the admission examines euvolemic, weight down to baseline - Urinary retention: had deshpande for 7 days, void trial on 07/18 was successful continue to monitor for retention - Pressure ulcer sacrum stage I, POA: wound care consulted, preventative measures, encourage activity Subjective Patient sitting up in bed this morning in no acute distress. Reports no side effects from increased dose of Bumex. Daily weights remained stable around 91 kg. Patient reports tolerating his diet, voiding, stooling, sleeping. No acute events overnight, all questions answered. Physical Exam Physical Exam: General: Elderly gentleman in no acute distress HEENT: Normocephalic atraumatic Neck: Normal to visual inspection Cardiac: Irregularly irregular approximately 65 bpm. I did not appreciate any significant murmurs rubs or gallops, negative JVD, negative calf tenderness, 1+ pedal edema bilaterally Respiratory: Clear to auscultation bilaterally, symmetrical chest rise, no increased work of breathing GI: Bowel sounds present, nontender, nondistended MSK: Moves all extremities, endorsed left leg pain, appreciated muscle spasm on physical exam Neuro: Alert and oriented x4 Psych: Calm, cooperative Results & Data Vital Signs (Past 12 Hours) Vital Signs Temp Pulse Resp BP Pulse Ox 07/21/19 07:47 36.6 C 77 16 130/73 94 07/21/19 07:20 75 16 96 07/21/19 06:02 93 07/21/19 01:17 72 16 85 L 07/20/19 23:51 36.4 C L 88 18 134/87 94 Laboratory Results 07/21/19 07/21/19 07/20/19 Range/Units 07:55 05:57 20:27 Sodium 138 (136-145) mmol/L Potassium 4.1 (3.5-5.1) mmol/L Chloride 101 (98-107) mmol/L Carbon Dioxide 32 (21-32) mmol/L Anion Gap 5.0 (3-11) BUN 25 H (7-18) mg/dl Creatinine 0.97 (0.6-1.4) mg/dl Est Cr Clr Drug Dosing 53.6 ml/min Est GFR ( Amer) 80.5 Est GFR (Non-Af Amer) 69.4 BUN/Creatinine Ratio 26.3 H (10-20) Glucose 111 H (70-99) mg/dl POC Glucose 111 H 123 H (70-99) Calcium 8.7 (8.5-10.1) mg/dl 07/20/19 07/20/19 Range/Units 16:34 11:48 Sodium (136-145) mmol/L Potassium (3.5-5.1) mmol/L Chloride (98-107) mmol/L Carbon Dioxide (21-32) mmol/L Anion Gap (3-11) BUN (7-18) mg/dl Creatinine (0.6-1.4) mg/dl Est Cr Clr Drug Dosing ml/min Est GFR ( Amer) Est GFR (Non-Af Amer) BUN/Creatinine Ratio (10-20) Glucose (70-99) mg/dl POC Glucose 103 H 113 H (70-99) Calcium (8.5-10.1) mg/dl Medications Administered Current Inpatient Medications Acetaminophen (Tylenol) 650 mg PO Q4H PRN PRN Reason: mild pain or fever Stop: 08/11/19 05:45 Last Admin: 07/20/19 04:08 Dose: 650 mg Documented by: Albuterol (Duoneb) 3 ml NEB Q6R [facility] Stop: 08/11/19 06:59 Last Admin: 07/21/19 07:20 Dose: 3 ml Documented by: Bumetanide (Bumex) 2 mg PO QAM [facility] Stop: 08/20/19 08:59 Last Admin: 07/21/19 07:55 Dose: 2 mg Documented by: Dextrose (Dextrose 50%) 25 - 50 ml IV UD PRN; Protocol PRN Reason: Hypoglycemia Protocol Stop: 08/11/19 05:45 Digoxin (Lanoxin) 0.125 mg PO DAILY@1600 [facility] Stop: 08/15/19 15:59 Last Admin: 07/20/19 16:10 Dose: 0.125 mg Documented by: Diltiazem HCl (Cardizem Cd) 120 mg PO QAM [facility] Stop: 08/18/19 08:59 Last Admin: 07/21/19 07:56 Dose: 120 mg Documented by: Ferrous Sulfate (Feosol) 325 mg PO Q2D@0900 [facility] Stop: 08/12/19 08:59 Last Admin: 07/21/19 07:56 Dose: 325 mg Documented by: Finasteride (Proscar) 5 mg PO DAILY [facility] Stop: 08/11/19 08:59 Last Admin: 07/21/19 07:57 Dose: 5 mg Documented by: Fluvastatin Sodium (Lescol) 80 mg PO HS [facility] Stop: 08/11/19 20:59 Last Admin: 07/20/19 21:26 Dose: 80 mg Documented by: Glucagon (Glucagen) 1 mg SQ UD PRN; Protocol PRN Reason: Hypoglycemia Protocol Stop: 08/11/19 05:45 Glucose (Glucose 40%) 15 - 30 gm PO UD PRN; Protocol PRN Reason: Hypoglycemia Protocol Stop: 08/11/19 05:45 Glucose (Dex4 Glucose) 4 - 8 tabs PO UD PRN; Protocol PRN Reason: Hypoglycemia Protocol Stop: 08/11/19 05:45 Ceftriaxone Sodium 2,000 mg/ (Dextrose) 70 mls @ 100 mls/hr IV Q24H [facility]; Protocol Stop: 07/22/19 14:59 Last Infusion: 07/20/19 15:30 Dose: Infused Documented by: Insulin Aspart (Novolog Flexpen) 0 units SC ACHS [facility]; Protocol Stop: 08/11/19 07:29 Last Admin: 07/21/19 08:14 Dose: Not Given Documented by: Lidocaine HCl (Xylocaine 2% Jelly) 5 ml EXT TID PRN PRN Reason: urethra pain Stop: 08/14/19 08:59 Last Admin: 07/15/19 14:36 Dose: 5 ml Documented by: Magnesium Oxide (Mag-Ox) 400 mg PO BID [facility] Stop: 08/11/19 08:59 Last Admin: 07/21/19 07:57 Dose: 400 mg Documented by: [facility] ([facility]) [facility] [place] Stop: 08/15/19 16:59 Last Admin: 07/21/19 08:14 Dose: 500 mg Documented by: Metoprolol Succinate (Toprol Xl) 150 mg PO BID [facility] Stop: 08/15/19 10:59 Last Admin: 07/21/19 07:57 Dose: 150 mg Documented by: Miscellaneous (Carbohydrates For Hypoglycemia) 15 - 30 gm PO UD PRN PRN Reason: Hypoglycemia Treatment Stop: 08/11/19 05:45 Miscellaneous Information (Consult Glycemic Management Pharmacy) 1 ea N/A UD PRN PRN Reason: Consult Stop: 08/11/19 08:34 Ondansetron HCl (Zofran) 4 mg IV Q6H PRN PRN Reason: nausea or vomiting Stop: 08/11/19 05:45 Potassium Chloride (Klor-Con M20) 20 meq PO TID [facility] Stop: 08/11/19 08:59 Last Admin: 07/21/19 07:56 Dose: 20 meq Documented by: Rivaroxaban (Xarelto) 20 mg PO DAILY@1700 [facility] Stop: 08/12/19 16:39 Last Admin: 07/20/19 17:17 Dose: 20 mg Documented by: Tamsulosin HCl (Flomax) 0.4 mg PO HS [facility] Stop: 08/11/19 20:59 Last Admin: 07/20/19 21:25 Dose: 0.4 mg Documented by: PG Care Time/CCT Total # of Minutes Spent Total Time Spent with Patient: Total time spent is greater than 50% in coordination of care (as documented) at patient's floor/unit and/or counseling patient:
[2019-07-21] MEDS: ACETAMINOPHEN 325 MG TAB PO PRN (13:34)
[2019-07-21] MEDS: cefTRIAXone SODIUM 2,000 MG in DEXTROSE 5% 50 ML IV SCH (14:24)
[2019-07-21] MEDS: RIVAROXABAN 20 MG TAB PO SCH (17:04)
[2019-07-21] MEDS: DIGOXIN 0.125 MG TAB PO SCH (17:04)
[2019-07-21] MEDS: FLUVASTATIN SODIUM 20 MG CAP PO SCH (20:45)
[2019-07-21] MEDS: TAMSULOSIN HCL 0.4 MG CAP PO SCH (20:45)
[2019-07-22] MEDS: ALBUT/IPRATROP 3MG/0.5MG NEB 3 ML VIAL NEB SCH ×4 (00:27→19:05)
[2019-07-22] MEDS: ACETAMINOPHEN 325 MG TAB PO PRN ×3 (01:44→21:23)
[2019-07-22 07:31] LABS: BUN Creatinine Ratio 28.3 (10-20); Calcium 9.2 mg/dl (8.5-10.1); Creatinine Clr Calc Pharmacy 49.6 ml/min; Est GFR (African American) 73.1; Est GFR (Non-African American) 63.1; Potassium 4.6 mmol/L (3.5-5.1)
[2019-07-22] MEDS: METOPROLOL SUCC 50MG EXT REL TAB PO SCH ×2 (09:16→21:28)
[2019-07-22] MEDS: POTASSIUM CHLORIDE 20 MEQ TABCR PO SCH ×3 (09:16→21:27)
[2019-07-22] MEDS: FINASTERIDE 5 MG TAB PO SCH (09:16)
[2019-07-22] MEDS: MAGNESIUM OXIDE 400 MG TAB PO SCH ×2 (09:16→21:27)
[2019-07-22] MEDS: BUMETANIDE 1 MG TAB PO SCH (09:17)
[2019-07-22] MEDS: INSULIN ASPART 100 UNITS/ML 3 ML PEN SC SCH ×4 (09:33→21:28)
[2019-07-22] MEDS: METFORMIN HCL 500 MG TAB PO SCH ×2 (09:44→17:31)
[2019-07-22] MEDS: dilTIAZem HCL 120 MG CAPCR PO SCH (09:44)
--- NOTE | 2019-07-22 09:45 | Family Medicine Progress Note ---
Date of Service July 22, 2019 Assessment & Plan (1) Atrial fibrillation with RVR: 89yo M PMH CHF, CAD, HLD, T2DM admitted on 07/12/19 with CHF exacerbation with acute hypoxic respiratory failure and new afib. Atrial fibrillation with RVR Patient was started on a heparin drip and a Cardizem drip on admission. Cardizem gtt dc'd and heparin gtt converted to xarelto on 07/13. Initiated digoxin due to elevated heart rates on 07/14/19. Converted to PO on 07/16. -Cardiology consulted, appreciate recs -Rate control achieved with diltiazem, transition to long-acting formulation 120 mg daily -Continue digoxin, metoprolol, and anticoagulation -Plan to follow-up in the outpatient setting for medication titration -At some point the future consider the possibility of ischemic evaluation, however currently symptomatic -Patient has been diuresing well -Dry weight 89 kg Acute on chronic CHF exacerbation -Patient prev on 80mg Lasix daily at home. Will DC on discharge in favor of Bumex 1 mg daily. New dry weight will be considered to be 89 kg. -Bumex 2 mg daily while in hospital. Extra 2mg dose of bumex given on 07/22. -Potassium 40 M EQ PRN based upon BMP secondary to loop diuretics -Strict I/O's -Echo: Moderate global hypokinesis, Left and right atrium mildly dilated Acute respiratory failure with hypoxia likely 2/2 CHF exacerbation and afib RVR, resolved -Currently alternating between RA and 1L, this may represent his baseline this patient was admitted to the hospital on 2 L of O2 -Wean O2 as tolerated -Duonebs prn Abdominal distention/Bladder wall thickening -On admission: Admission CT was suspicious for bladder wall thickening and infiltration of the adjacent fat, cystitis versus malignancy. -Patient's urine culture also grew out Proteus vulgaris he was treated with 5 days of ceftriaxone IV. -Urology consulted for the suspicious CT findings as they identified long- standing bladder outlet obstruction, and recommend maintaining Deshpande for 5 to 7 days. -Trial of voids was attempted prior to patient's discharge and was unsuccessful, Deshpande catheter was subsequently replaced. -Urine cytology was obtained with the patient was hospitalized, demonstrating blood and acute inflammation. -Differential includes reactive degenerative change versus atypical urothelial cells. -Patient will follow-up with urology as an outpatient for cystoscopy. Appointment is arranged for 2 weeks from now Elevated troponin: Resolved -Likely secondary to demand ischemia. Has stabilized. -Consider coronary angiography, deferred to outpatient Type II diabetes mellitus -Heart healthy and diabetic diet -Resumed Metformin -glycemic consult placed Hyperlipidemia: -Continue Fluvastatin CAD (coronary artery disease) -Remote h/o CABG -Continue Metoprolol, fluvastatin, and aspirin -Consider outpt coronary angio Sacral Ulcer Nursing alerted us to sacral ulcer have a centimeter by half centimeter placed the patch on it not concerning for infection. -Routine wound care Muscle Spasm, resolved Appreciated muscle spasm on physical exam his left leg. Recommended stretching exercises. FENa:DMII Code Status:DNR/DNI DVT PPX: Xarelto PT/OT: as pt improves Dispo:d/c earliest 07/23 to [facility] Supervising Physician Co-Signing Physician Notes Patient seen and examined with Dr. Goodson. I agree with their exam findings, review of systems, assessment and plan. I have personally reviewed the lab work and imaging from today. patient doing well, pleased that [employer] [place] won last night he admits to a little more edema in legs and some more distension breathing is exactly the same as yesterday, no distress Exam: WDWN male, no distress, rales in bases, normal respiratory effort irreg irreg, normal rates, no murmurs, +2 edema bilaterally (more than yesterday) - Atrial fibrillation with RVR: rates well controlled consistently, converted to Toprol 150mg BID, continue on Digoxin continue Xarelto for anticoagulation continue Diltiazem for rate control per Dr. Kulkarni, working well - Acute on chronic heart failure, preserved EF: much improved, continue fluid restriction on discharge down 10 liters for the admission still determining a good home dose, he had been on Bumex 2mg daily however, more edema and abdominal distension today, give extra dose of Bumex 2mg this afternoon should follow up on edema and urine output tomorrow he may need BID dosing on discharge, renal function has been stable - Urinary retention: had deshpande for 7 days, void trial on 07/18 was successful continue to monitor for retention - Pressure ulcer sacrum stage I, POA: wound care consulted, preventative measures, encourage activity plan for discharge to [facility] in [place] once [place] process completed, may be a few days, case management following Subjective Mr. Fofana feels well this morning. Denies shortness of breath. Reports continued peripheral edema. Is frustrated about disposition, would like to leave hospital to be with at [facility]. Review of Systems Review of Systems: All systems reviewed & are unremarkable except as noted in HPI & below Constitutional: no fever, no chills and no fatigue Respiratory: no cough and no dyspnea Cardiovascular: + edema; no chest pain Gastrointestinal: no abdominal pain Genitourinary: no dysuria Physical Exam Constitutional: no acute distress and not ill appearing Eyes: no nystagmus ENMT: Ears: no hearing impairment Neck: trachea midline Respiratory: no respiratory distress and no cough Cardiovascular: Rate/Rhythm: + irregularly irregular Vessels: no JVD Extremities: + edema (2+ to shins) Chest (Breasts): Chest: normal inspection of chest Gastrointestinal (Abdomen): Inspection/Auscultation: + abdomen distended; no abdominal edema Percussion/Palpation: abdomen soft; abdomen nontender Musculoskeletal: Head/Neck/Chest: normocephalic and head atraumatic Skin: no rashes, warm and dry Neurologic: awake; not confused and not obtunded Psychiatric: Orientation: alert and oriented x 3 Eye Contact: good eye contact Affect: no depressed affect Genitourinary: no CVA tenderness Lymphatic: no lymphadenopathy Results & Data Vital Signs (Past 12 Hours) Vital Signs Temp Pulse Resp BP BP Pulse Ox 07/22/19 08:00 97.9 F 77 18 127/89 93 07/22/19 07:34 69 20 95 07/22/19 00:28 83 22 89 L 07/21/19 23:00 98.6 F 73 18 139/75 92 Laboratory Results 07/22/19 07/22/19 07/21/19 Range/Units 08:00 06:37 19:49 Sodium 137 (136-145) mmol/L Potassium 4.6 (3.5-5.1) mmol/L Chloride 101 (98-107) mmol/L Carbon Dioxide 33 H (21-32) mmol/L Anion Gap 3.0 (3-11) BUN 30 H (7-18) mg/dl Creatinine 1.05 (0.6-1.4) mg/dl Est Cr Clr Drug Dosing 49.6 ml/min Est GFR ( Amer) 73.1 Est GFR (Non-Af Amer) 63.1 BUN/Creatinine Ratio 28.3 H (10-20) Glucose 139 H (70-99) mg/dl POC Glucose 142 H 100 H (70-99) Calcium 9.2 (8.5-10.1) mg/dl 07/21/19 07/21/19 Range/Units 17:02 12:08 Sodium (136-145) mmol/L Potassium (3.5-5.1) mmol/L Chloride (98-107) mmol/L Carbon Dioxide (21-32) mmol/L Anion Gap (3-11) BUN (7-18) mg/dl Creatinine (0.6-1.4) mg/dl Est Cr Clr Drug Dosing ml/min Est GFR ( Amer) Est GFR (Non-Af Amer) BUN/Creatinine Ratio (10-20) Glucose (70-99) mg/dl POC Glucose 108 H 104 H (70-99) Calcium (8.5-10.1) mg/dl Medications Administered Current Inpatient Medications Acetaminophen (Tylenol) 650 mg PO Q4H PRN PRN Reason: mild pain or fever Stop: 08/11/19 05:45 Last Admin: 07/22/19 01:44 Dose: 650 mg Documented by: Albuterol (Duoneb) 3 ml NEB Q6R [facility] Stop: 08/11/19 06:59 Last Admin: 07/22/19 07:32 Dose: 3 ml Documented by: Bumetanide (Bumex) 2 mg PO QAM [facility] Stop: 08/20/19 08:59 Last Admin: 07/22/19 09:17 Dose: 2 mg Documented by: Bumetanide (Bumex) 2 mg PO ONE ONE Stop: 07/22/19 16:01 Dextrose (Dextrose 50%) 25 - 50 ml IV UD PRN; Protocol PRN Reason: Hypoglycemia Protocol Stop: 08/11/19 05:45 Digoxin (Lanoxin) 0.125 mg PO DAILY@1600 [facility] Stop: 08/15/19 15:59 Last Admin: 07/21/19 17:04 Dose: 0.125 mg Documented by: Diltiazem HCl (Cardizem Cd) 120 mg PO QAM [facility] Stop: 08/18/19 08:59 Last Admin: 07/22/19 09:44 Dose: 120 mg Documented by: Ferrous Sulfate (Feosol) 325 mg PO Q2D@0900 [facility] Stop: 08/12/19 08:59 Last Admin: 07/21/19 07:56 Dose: 325 mg Documented by: Finasteride (Proscar) 5 mg PO DAILY [facility] Stop: 08/11/19 08:59 Last Admin: 07/22/19 09:16 Dose: 5 mg Documented by: Fluvastatin Sodium (Lescol) 80 mg PO HS [facility] Stop: 08/11/19 20:59 Last Admin: 07/21/19 20:45 Dose: 80 mg Documented by: Glucagon (Glucagen) 1 mg SQ UD PRN; Protocol PRN Reason: Hypoglycemia Protocol Stop: 08/11/19 05:45 Glucose (Glucose 40%) 15 - 30 gm PO UD PRN; Protocol PRN Reason: Hypoglycemia Protocol Stop: 08/11/19 05:45 Glucose (Dex4 Glucose) 4 - 8 tabs PO UD PRN; Protocol PRN Reason: Hypoglycemia Protocol Stop: 08/11/19 05:45 Ceftriaxone Sodium 2,000 mg/ (Dextrose) 70 mls @ 100 mls/hr IV Q24H [facility]; Protocol Stop: 07/22/19 14:59 Last Infusion: 07/21/19 15:30 Dose: Infused Documented by: Insulin Aspart (Novolog Flexpen) 0 units SC ACHS [facility]; Protocol Stop: 08/11/19 07:29 Last Admin: 07/22/19 09:33 Dose: Not Given Documented by: Lidocaine HCl (Xylocaine 2% Jelly) 5 ml EXT TID PRN PRN Reason: urethra pain Stop: 08/14/19 08:59 Last Admin: 07/15/19 14:36 Dose: 5 ml Documented by: Magnesium Oxide (Mag-Ox) 400 mg PO BID [facility] Stop: 08/11/19 08:59 Last Admin: 07/22/19 09:16 Dose: 400 mg Documented by: Metformin HCl (Glucophage) 500 mg PO BIDM [facility]; Protocol Stop: 08/15/19 16:59 Last Admin: 07/22/19 09:44 Dose: 500 mg Documented by: Metoprolol Succinate (Toprol Xl) 150 mg PO BID [facility] Stop: 08/15/19 10:59 Last Admin: 07/22/19 09:16 Dose: 150 mg Documented by: Miscellaneous (Carbohydrates For Hypoglycemia) 15 - 30 gm PO UD PRN PRN Reason: Hypoglycemia Treatment Stop: 08/11/19 05:45 Miscellaneous Information (Consult Glycemic Management Pharmacy) 1 ea N/A UD PRN PRN Reason: Consult Stop: 08/11/19 08:34 Ondansetron HCl (Zofran) 4 mg IV Q6H PRN PRN Reason: nausea or vomiting Stop: 08/11/19 05:45 Potassium Chloride (Klor-Con M20) 20 meq PO TID [facility] Stop: 08/11/19 08:59 Last Admin: 07/22/19 09:16 Dose: 20 meq Documented by: Rivaroxaban (Xarelto) 20 mg PO DAILY@1700 [facility] Stop: 08/12/19 16:39 Last Admin: 07/21/19 17:04 Dose: 20 mg Documented by: Tamsulosin HCl (Flomax) 0.4 mg PO HS [facility] Stop: 08/11/19 20:59 Last Admin: 07/21/19 20:45 Dose: 0.4 mg Documented by: PG Care Time/CCT Total # of Minutes Spent Total Time Spent with Patient: Total time spent is greater than 50% in coordination of care (as documented) at patient's floor/unit and/or counseling patient: Resident Activity Tracking Resident Involvement: Resident Care Provided Care Provided: Adult Hospital Medicine
[2019-07-22] MEDS ORDERED: BUMETANIDE 1 MG TAB PO ONE (16:00)
[2019-07-22] MEDS: RIVAROXABAN 20 MG TAB PO SCH (17:31)
[2019-07-22] MEDS: DIGOXIN 0.125 MG TAB PO SCH (17:31)
[2019-07-22] MEDS: FLUVASTATIN SODIUM 20 MG CAP PO SCH (21:25)
[2019-07-22] MEDS: TAMSULOSIN HCL 0.4 MG CAP PO SCH (21:27)
[2019-07-23] MEDS: ALBUT/IPRATROP 3MG/0.5MG NEB 3 ML VIAL NEB SCH ×4 (01:09→19:46)
[2019-07-23 07:04] LABS: BUN Creatinine Ratio 30.2 (10-20); Creatinine Clr Calc Pharmacy 58.5 ml/min; Est GFR (African American) 88.5; Est GFR (Non-African American) 76.3; Potassium 3.8 mmol/L (3.5-5.1)
[2019-07-23] MEDS: POTASSIUM CHLORIDE 20 MEQ TABCR PO SCH ×3 (08:11→20:44)
[2019-07-23] MEDS: BUMETANIDE 1 MG TAB PO SCH (08:11)
[2019-07-23] MEDS: MAGNESIUM OXIDE 400 MG TAB PO SCH ×2 (08:11→20:46)
[2019-07-23] MEDS: METFORMIN HCL 500 MG TAB PO SCH ×2 (08:11→17:46)
[2019-07-23] MEDS: METOPROLOL SUCC 50MG EXT REL TAB PO SCH ×2 (08:11→20:46)
[2019-07-23] MEDS: FINASTERIDE 5 MG TAB PO SCH (08:11)
[2019-07-23] MEDS: dilTIAZem HCL 120 MG CAPCR PO SCH (08:11)
[2019-07-23] MEDS: INSULIN ASPART 100 UNITS/ML 3 ML PEN SC SCH ×4 (08:12→20:46)
[2019-07-23] MEDS: FERROUS SULFATE 325 MG TAB PO SCH (10:12)
--- NOTE | 2019-07-23 13:19 | Pharmacy Report ---
Pharmacy Glycemic Sign Off Nt - Date of Service July 23, 2019 - Assessment & Plan OUTPATIENT GLYCEMIC REGIMEN: * Metformin 500 mg BID * A1c 6.9% on 07/13/19 ASSESSMENT: * Pharmacy was consulted by Dr Hayes on 07/12/19 for glycemic control and to write orders per [facility] inpatient glycemic control protocol. * Patient has been receiving/requiring 0 units of insulin per day for adequate glycemic control * BSGs ranging 119-151 mg/dl over the past 24 hours * Patient has not rec'd any insulin for the past 5 days, with well-controlled BSGs. Novolog is ordered for correction only. * Do not anticipate further changes in patient status that would quickly deteriorate glycemic control (i.e. patient to be NPO for upcoming procedure, steroids tapering, starting tube feedings, etc). * Please see recommendations for outpatient antidiabetic regimen below. PLAN FOR INPATIENT GLYCEMIC CONTROL: No changes needed to current regimen. * Continue Metformin 500mg PO BID * Continue NovoLog per scale ACHS/Q6hrs while NPO * Goal range = 120 - 160 mg/dl * CF = 30 mg/dl/unit * CR = none * A1c added to discharge instructions to be communicated to PCP. * Pharmacy is signing off of glycemic consult and will no longer be making adjustments to inpatient regimen. Please feel free to re-consult if needed. Thank you. DISCHARGE RECOMMENDATIONS: * A1C of 6.9% indicates adequate glycemic control - would recommend continuation of metformin on discharge.
--- NOTE | 2019-07-23 15:01 | Family Medicine Progress Note ---
Date of Service July 23, 2019 Assessment & Plan (1) Atrial fibrillation with RVR: 89yo M PMH CHF, CAD, HLD, T2DM admitted on 07/12/19 with CHF exacerbation with acute hypoxic respiratory failure and new afib. Atrial fibrillation with RVR Patient was started on a heparin drip and a Cardizem drip on admission. Cardizem gtt dc'd and heparin gtt converted to xarelto on 07/13. Initiated digoxin due to elevated heart rates on 07/14/19. Converted to PO on 07/16. -Cardiology consulted, appreciate recs -Rate control achieved with diltiazem, transition to long-acting formulation 120 mg daily -Continue digoxin, metoprolol, and anticoagulation -Plan to follow-up in the outpatient setting for medication titration -At some point the future consider the possibility of ischemic evaluation, however currently symptomatic -Patient has been diuresing well -Dry weight 89 kg Acute on chronic CHF exacerbation -Echo: Moderate global hypokinesis, EF 35-40% Left and right atrium mildly dilated -Patient prev on 80mg Lasix daily at home. -Bumex 2 mg daily while in hospital. Extra 2mg dose of bumex given on 07/22. -down 10 liters -Potassium 40 M EQ PRN based upon BMP secondary to loop diuretics -stable renal function Will DC on discharge in favor of Bumex 1 mg daily. New dry weight will be considered to be 89 kg. Acute respiratory failure with hypoxia likely 2/2 CHF exacerbation and afib RVR, resolved -Currently alternating between RA and 1L, tells me he is not on home O2 Not subjectively short of breath -Wean O2 as tolerated -Duonebs prn Abdominal distention/Bladder wall thickening/urinary retention -On admission: Admission CT was suspicious for bladder wall thickening and infiltration of the adjacent fat, cystitis versus malignancy. -Patient's urine culture also grew out Proteus vulgaris he was treated with 5 days of ceftriaxone IV. -Urology consulted for the suspicious CT findings as they identified long- standing bladder outlet obstruction, and recommend maintaining Lopez for 5 to 7 days. -Trial of voids was attempted prior to patient's discharge and was unsuccessful, Lopez catheter was subsequently replaced. -Urine cytology was obtained with the patient was hospitalized, demonstrating blood and acute inflammation. -Differential includes reactive degenerative change versus atypical urothelial cells. -Patient will follow-up with urology as an outpatient for cystoscopy. Appointment is arranged for 2 weeks from now Elevated troponin: Resolved -Likely secondary to demand ischemia. Has stabilized. -Consider coronary angiography, deferred to outpatient Type II diabetes mellitus -Heart healthy and diabetic diet -Resumed Metformin -glycemic consult placed Hyperlipidemia: -Continue Fluvastatin CAD (coronary artery disease) -Remote h/o CABG -Continue Metoprolol, fluvastatin, and aspirin -Consider outpt coronary angio Sacral Ulcer- stage I, POA: Nursing alerted us to sacral ulcer have a centimeter by half centimeter placed the patch on it not concerning for infection. -Routine wound care FENa:DMII Code Status:DNR/DNI DVT PPX: Xarelto PT/OT: as pt improves Dispo:d/c earliest 07/24 to [facility] awaiting authorization Supervising Physician Co-Signing Physician Notes Resident Physician Supervision Note: I independently interviewed and examined the patient and verified the christianson history and physical, reviewed labs and image studies, discussed the case with the resident Dr. Kenney and agree with the findings and care plan.. Subjective Faizan mendoza is doing well this morning, he tells me he is anxious to get out of the hospital. 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 He tells me he is close to his baseline health status but still feels weak and exhausted, no longer endorsing any shortness of breath. Review of Systems Review of Systems: All systems reviewed & are unremarkable except as noted in HPI & below Physical Exam Constitutional: no acute distress and not ill appearing Eyes: no nystagmus ENMT: Ears: no hearing impairment Neck: trachea midline Respiratory: no respiratory distress and no cough Auscultation: + crackles (faint bibasilar) Cardiovascular: Rate/Rhythm: + irregularly irregular Vessels: no JVD Extremities: + edema (2+ to shins) Chest (Breasts): Chest: normal inspection of chest Gastrointestinal (Abdomen): Inspection/Auscultation: + abdomen distended; no abdominal edema Percussion/Palpation: abdomen soft; abdomen nontender Musculoskeletal: Head/Neck/Chest: normocephalic and head atraumatic Skin: no rashes, warm and dry Neurologic: awake; not confused and not obtunded Psychiatric: Orientation: alert and oriented x 3 Eye Contact: good eye contact Affect: no depressed affect Results & Data Vital Signs (Past 12 Hours) Vital Signs Temp Pulse Resp BP Pulse Ox 07/23/19 14:41 36.8 C 92 H 20 134/72 91 07/23/19 13:39 73 18 90 07/23/19 07:36 36.5 C 67 20 115/70 98 07/23/19 07:03 70 18 90 PG Care Time/CCT Total # of Minutes Spent Total Time Spent with Patient: Total time spent is greater than 50% in coordination of care (as documented) at patient's floor/unit and/or counseling patient: Resident Activity Tracking Resident Involvement: Resident Care Provided Care Provided: Adult Hospital Medicine
[2019-07-23] MEDS: DIGOXIN 0.125 MG TAB PO SCH (15:34)
[2019-07-23] MEDS: RIVAROXABAN 20 MG TAB PO SCH (17:48)
[2019-07-23] MEDS: TAMSULOSIN HCL 0.4 MG CAP PO SCH (20:44)
[2019-07-23] MEDS: FLUVASTATIN SODIUM 20 MG CAP PO SCH (20:45)
[2019-07-23] MEDS: ACETAMINOPHEN 325 MG TAB PO PRN (23:53)
[2019-07-24] MEDS: ALBUT/IPRATROP 3MG/0.5MG NEB 3 ML VIAL NEB SCH ×4 (01:53→19:00)
[2019-07-24] MEDS ORDERED: POLYETHYLENE (MIRALAX) 17 GM PACK PO PRN (04:55)
[2019-07-24] MEDS ORDERED: DOCUSATE SODIUM 100 MG CAP PO ONE (04:55)
[2019-07-24 06:53] LABS: Est GFR (African American) 82.5; Est GFR (Non-African American) 71.2; Potassium 3.9 mmol/L (3.5-5.1)
[2019-07-24 06:54] LABS: BUN Creatinine Ratio 27.2 (10-20); Calcium 9.1 mg/dl (8.5-10.1); Creatinine Clr Calc Pharmacy 54.8 ml/min
[2019-07-24] MEDS: dilTIAZem HCL 120 MG CAPCR PO SCH (08:22)
[2019-07-24] MEDS: METOPROLOL SUCC 50MG EXT REL TAB PO SCH (08:22)
[2019-07-24] MEDS: METFORMIN HCL 500 MG TAB PO SCH ×2 (08:22→16:47)
[2019-07-24] MEDS: BUMETANIDE 1 MG TAB PO SCH (08:23)
[2019-07-24] MEDS: FINASTERIDE 5 MG TAB PO SCH (08:23)
[2019-07-24] MEDS: POTASSIUM CHLORIDE 20 MEQ TABCR PO SCH ×2 (08:23→14:09)
[2019-07-24] MEDS: MAGNESIUM OXIDE 400 MG TAB PO SCH (08:23)
[2019-07-24] MEDS: INSULIN ASPART 100 UNITS/ML 3 ML PEN SC SCH ×3 (08:27→17:14)
[2019-07-24] MEDS: DIGOXIN 0.125 MG TAB PO SCH (16:47)
[2019-07-24] MEDS: RIVAROXABAN 20 MG TAB PO SCH (16:48)
--- NOTE | 2019-07-24 17:08 | Discharge Summary ---
Date of Service July 24, 2019 Admission HPI Per Admitting Provider 89 y/o male presented to the ED from [facility] with a 12 hour history of constant diffuse abdominal pain. He described as having a "soccer ball in my stomach". He did have a normal BM last evening. No vomiting or diarrhea, No F/C, No cough, No chest pain. The patient is a poor historian in regards to past medical history. He is found to be in A.fib with RVR. Primary Care Provider: [facility] Principal Diagnosis CHF exacerbation Discharge Exam Constitutional no acute distress and not ill appearing Eyes no nystagmus ENMT Ears: no hearing impairment Neck trachea midline Respiratory no respiratory distress and no cough Auscultation: + crackles (faint bibasilar) Cardiovascular Rate/Rhythm: + irregularly irregular Vessels: no JVD Extremities: + edema (2+ to shins) Chest (Breasts) Chest: normal inspection of chest Gastrointestinal (Abdomen) Inspection/Auscultation: + abdomen distended; no abdominal edema Percussion/Palpation: abdomen soft; abdomen nontender Musculoskeletal Head/Neck/Chest: normocephalic and head atraumatic Skin no rashes, warm and dry Neurologic awake; not confused and not obtunded Psychiatric Orientation: alert and oriented x 3 Eye Contact: good eye contact Affect: no depressed affect Genitourinary no CVA tenderness Lymphatic no lymphadenopathy Discharge Data Allergies Allergy/AdvReac Type Severity Reaction Status Date / Time simvastatin Allergy Unknown Unknown Verified 07/12/19 00:57 Consultations 07/12/19 04:19 ED Decision to Admit Stat 07/12/19 08:28 Consult Cardiology Routine 07/12/19 11:57 Consult Urology Routine 07/13/19 08:18 Consult Health Information Management Routine 07/15/19 09:31 Consult Cardiology Routine Ordered Studies 07/11/19 23:25 CT abd pelvis oral and IV con Urgent Hospital Course (1) Atrial fibrillation with RVR: 89yo M PMH CHF, CAD, HLD, T2DM admitted on 07/12/19 with CHF exacerbation with acute hypoxic respiratory failure and new afib. Atrial fibrillation with RVR Patient was started on a heparin drip and a Cardizem drip on admission. Cardizem gtt dc'd and heparin gtt converted to xarelto on 07/13. Initiated 250mcg digoxin due to elevated heart rates on 07/14/19. Has received full 1mg IV loading dosing; converted to PO dosing on 07/16. Patient is adequately diuresed during this admission, he is dry weight is 89 kg. He was started on Toprol succinate 150 mg twice daily, continue this as an outpatient. Initially was started on digoxin 0.125 mg continue as an outpatient. Rate control was finally achieved with addition of diltiazem 30 mg 3 times daily converted to Cardizem 120 mg XR prior to discharge. Acute on chronic CHF exacerbation On admission patient was taking 80 mg of Lasix daily as an outpatient. Given his significantly elevated weight, we are suspicious that the medication was not being absorbed secondary to wall edema. patient was transitioned to Bumex 1 mg daily and diuresed adequately. His dry weight is 89 kg. Dose was increased to 2 mg daily, Continue Bumex 2 mg daily as an outpatient with frequent checks of renal function and clinical status. Obtain daily weights if patient begins to increase may give additional dose of Bumex. Acute respiratory failure with hypoxia likely 2/2 CHF exacerbation and afib RVR Patient presented to the hospital on 2 L of oxygen, while hospitalized he increased his oxygen requirements to 1 L. Patient also requiring CPAP at night continue CPAP as outpatient. Abdominal distention Abdominal CT on admission: congestive failure/fluid overload, prostamegaly, bladder wall thickening and infiltration of adjacent fat, cannot exclude cystitis cannot exclude malignancy.Suspect abdominal discomfort and distention which caused him to present to the hospital secondary to fluid overloaded status, furthermore the symptoms improved with diuresis. UTI, Bladder wall thickening on CT scan Admission CT was suspicious for bladder wall thickening and infiltration of the adjacent fat, cystitis versus malignancy. Patient's urine culture also grew out Proteus vulgaris he was treated with 5 days of ceftriaxone IV. Urology was consulted for the suspicious CT findings they identified long-standing bladder outlet obstruction, and recommend maintaining the Lopez for 5 to 7 days. On day 6, a trial of voids was attempted prior to patient's discharge and was successful. Urine cytology was obtained with the patient was hospitalized, demonstrating blood and acute inflammation. Rare urothelial cells with enlarged hyperchromatic nuclei with irregular nuclear borders. Differential includes reactive degenerative change versus atypical urothelial cells. Patient will follow-up with urology as an outpatient for cystoscopy. Appointment is arranged for 2 weeks from now Elevated troponin: Resolved -Likely secondary to demand ischemia trending troponins. Have stabilized. -Cardiology consulted they will consider coronary angiography as an outpatient. Type II diabetes mellitus While hospitalized patient's home metformin was held, his diabetes was managed through SSI insulin. On discharge his home metformin was resumed. Continue he art healthy diabetic diet. Hyperlipidemia: -Continue Fluvastatin CAD (coronary artery disease) -Remote h/o CABG -Continue Metoprolol and aspirin -Consider outpt coronary angio Sacral Ulcer Nursing alerted us to sacral ulcer have a centimeter by half centimeter placed the patch on it not concerning for infection. -Routine wound care FENa:DMII Code Status:DNR/DNI DVT PPX: Xarelto PT/OT: consulted -> SNF Dispo: SNF Total Time Total Time Spent Total Time Spent (In Minutes): See attending attestation Discharge Plan Discharge Items Patient Disposition: Transfer [facility] Reason For Visit: A-FIB, RVR Discharge Diagnosis: Atrial fibrillation with rapid ventricular rate, CHF exacerbation, acute hypoxemic respiratory failure, urinary tract infection, suspicious findings on abdominal CT, urinary retention Activity: Resume your previous activity Non-emergency contact: Primary Care Provider Call non-emergency contact if: you have any medication questions Follow-up/Referrals: Moe Goldsmith [Primary Care Provider] - Diet: Carb Consistent or DM2 Ambulatory Orders: [place] CPAP rental-purchase (Routine) Timeframe: 1 Day Location: Determined by Patient Ordered By: Alcides Swift Attending Provider Instructions: 89yo M PMH CHF, CAD, HLD, T2DM admitted on 07/12/19 with CHF exacerbation with acute hypoxic respiratory failure and new afib. Atrial fibrillation with RVR Patient was started on a heparin drip and a Cardizem drip on admission. Cardizem gtt dc'd and heparin gtt converted to xarelto on 07/13. Initiated 250mcg digoxin due to elevated heart rates on 07/14/19. Has received full 1mg IV loading dosing; converted to PO dosing on 07/16. Patient is adequately diuresed during this admission, he is dry weight is 89 kg. He was started on Toprol succinate 150 mg twice daily, continue this as an outpatient. Initially was started on digoxin 0.125 mg continue as an outpatient. Rate control was finally achieved with addition of diltiazem 30 mg 3 times daily converted to Cardizem 120 mg XR prior to discharge. Acute on chronic CHF exacerbation On admission patient was taking 80 mg of Lasix daily as an outpatient. Given his significantly elevated weight, we are suspicious that the medication was not being absorbed secondary to wall edema. Hospitalist patient was transitioned to Bumex 1 mg daily and diuresed adequately. His dry weight is 89 kg. Dose was increased to 2 mg daily, Continue Bumex 2 mg daily as an outpatient with frequent checks of renal function and clinical status. Obtain daily weights if patient begins to increase may give additional dose of Bumex. Acute respiratory failure with hypoxia likely 2/2 CHF exacerbation and afib RVR Patient presented to the hospital on 2 L of oxygen, while hospitalized he increased his oxygen requirements to 1 L. Patient also requiring CPAP at night continue CPAP as outpatient. Abdominal distention Abdominal CT on admission: congestive failure/fluid overload, prostamegaly, bladder wall thickening and infiltration of adjacent fat, cannot exclude cystitis cannot exclude malignancy.Suspect abdominal discomfort and distention which caused him to present to the hospital secondary to fluid overloaded status, furthermore the symptoms improved with diuresis. Based on these findings I believe the patient first gets accumulate fluid in his abdomen and then it spreads distally to his legs. Will use abdominal distention as a marker for fluid status Bladder wall thickening Admission CT was suspicious for bladder wall thickening and infiltration of the adjacent fat, cystitis versus malignancy. Patient's urine culture also grew out Proteus vulgaris he was treated with 5 days of ceftriaxone IV. Urology was co nsulted for the suspicious CT findings they identified long-standing bladder outlet obstruction, and recommend maintaining the Lopez for 5 to 7 days. On day 6, a trial of voids was attempted prior to patient's discharge and was successful. Urine cytology was obtained with the patient was hospitalized, demonstrating blood and acute inflammation. Rare urothelial cells with enlarged hyperchromatic nuclei with irregular nuclear borders. Differential includes reactive degenerative change versus atypical urothelial cells. Patient will follow-up with urology as an outpatient for cystoscopy. Appointment is arranged for 2 weeks from now Elevated troponin: Resolved -Likely secondary to demand ischemia trending troponins. Have stabilized. -Cardiology consulted they will consider coronary angiography as an outpatient. Type II diabetes mellitus While hospitalized patient's home metformin was held, his diabetes was managed through SSI insulin. On discharge his home metformin was resumed. Continue heart healthy diabetic diet. Hyperlipidemia: -Continue Fluvastatin CAD (coronary artery disease) -Remote h/o CABG -Continue Metoprolol and aspirin -Consider outpt coronary angio Sacral Ulcer Nursing alerted us to sacral ulcer have a centimeter by half centimeter placed the patch on it not concerning for infection. -Routine wound care FENa:DMII Code Status:DNR/DNI DVT PPX: Xarelto PT/OT: consulted -> SNF Dispo: SNF Pending Studies at Discharge: No Stand-Alone Forms: My [facility] Skilled Items Patient informed of condition?: Yes DNR: Yes Discharge Level of Care: Skilled Communicable Disease: No Discharge Prognosis: Improving Lines: None Urinary Catheter: Yes Medications and DC Order Prescriptions: New metoprolol succinate 50 mg Tablet Extended Release 24 Hr 150 mg PO BID 30 Days Qty: 180 RF: 0 tamsulosin 0.4 mg Capsule 0.4 mg PO HS 30 Days Qty: 30 RF: 0 digoxin 125 mcg (0.125 mg) Tablet 0.125 mg PO DAILY@1600 30 Days Qty: 30 RF: 0 Xarelto 20 mg Tablet 20 mg PO DAILY@1700 30 Days Qty: 30 RF: 0 diltiazem HCl 120 mg capsule,ext.rel 24h degradable 120 mg PO DAILY 30 Days Qty: 30 RF: 3 CPAP Supplies Misc .ROUTE .MEDSUPPLY Qty: 1 RF: 0 CPAP Machine Misc .ROUTE .MEDSUPPLY Qty: 1 RF: 0 bumetanide 2 mg tablet 2 mg PO DAILY Qty: 30 RF: 0 Continued cyanocobalamin (vitamin B-12) [Vitamin B-12] 1,000 mcg Tablet 1,000 mcg PO 3XWK RF: 0 docusate sodium 100 mg Tablet 100 mg PO DAILY PRN (Reason: Constipation) RF: 0 acetaminophen [Tylenol] 325 mg Tablet 650 mg PO BID RF: 0 ascorbic acid (vitamin C) [Vitamin C] 500 mg Tablet Extended Release 500 mg PO Q2D RF: 0 aspirin 81 mg Tablet,Delayed Release (Dr/Ec) 81 mg PO DAILY RF: 0 ferrous sulfate 325 mg (65 mg iron) Tablet 325 mg PO Q2D RF: 0 finasteride 5 mg Tablet 5 mg PO DAILY RF: 0 omega [id number] oil [Fish Oil] 1,000 mg (120 mg-180 mg) Capsule 1 cap PO BID RF: 0 furosemide [Lasix] 80 mg Tablet 80 mg PO DAILY RF: 0 magnesium oxide 400 mg magnesium Tablet 400 mg PO BID RF: 0 metformin 500 mg Tablet 500 mg PO BID RF: 0 ipratropium-albuterol 0.5 mg-3 mg(2.5 mg base)/3 mL Solution For Nebulization 3 ml INHALATION Q4H RF: 0 multivitamin Tablet 1 tab PO 4XWK RF: 0 aluminum-magnesium hydroxide 200-200 mg/5 mL Suspension 20 ml PO Q6H PRN (Reason: Heartburn) RF: 0 potassium chloride 20 mEq Tablet Extended Release 20 meq PO TID RF: 0 saw palmetto 160 mg Capsule 160 mg PO DAILY RF: 0 acetaminophen [Tylenol] 325 mg Tablet 650 mg PO Q6H PRN (Reason: pain/fever) RF: 0 fluvastatin 80 mg Tablet Extended Release 24 Hr 80 mg PO HS RF: 0 Discontinued metoprolol succinate 50 mg Tablet Extended Release 24 Hr 50 mg PO BID RF: 0 Discharge Orders: Discharge Order (Routine); Ordered 07/24/19 Ordered By: Celestino Kenney Admission Data Admit Date/Time: 07/12/19 04:40 Attending Provider: Gris Aggarwal Admit Provider: Betito Juarez Primary Care Provider: Moe Goldsmith Other Providers: Betito Juarez ; Todd Kulkarni ; Juan C Maldonado ; Blayne Thurman ; Killian Bo Other Interventions: Discharge Summary Assessment (RN) Last Done: 07/24/19 13:17 DC Date/Time DO NOT enter until pt leaves facility: 07/24/19 20:24 Supervising Physician Co-Signing Physician Notes Resident Physician Supervision Note: I independently interviewed and examined the patient and verified the christianson history and physical, reviewed labs and image studies, discussed the case with the resident Dr. Kenney and agree with the findings and care plan.. Resident Activity Tracking Resident Involvement: Resident Care Provided Care Provided: Adult Hospital Medicine
== END 2019-07-24 20:24 | DRG 291 ==
LOC: ED 22:34 → SUATTDRO 07-12 04:40 → 2S 07-12 04:40 → 2N 07-19 16:53 → 4W 07-22 07:57